=== PATIENT | female | born 1945 | race Caucasian/White ===

== ENCOUNTER 2022-04-07 09:36 | Day surgery (SDC) | payer MEDICARE, SELFPAY ==
[2022-04-07 09:56] VITALS: BMI 28.3
--- NOTE | 2022-04-07 12:29 | P.CONAN_ITS ---
HPI - Anesthesia Eval Consult details Narrative: 76 yo female patient for EGD PMFSH Active Problems Active Problems: Environmental allergies Past Medical History Medical History (Updated 04/07/22 @ 12:45 by Madai Zabala MD) Asthma Bronchitis CKD (chronic kidney disease) Coronary artery disease HTN (hypertension) Retinal detachment Rheumatic fever Tachycardia Urinary incontinence Family History Family history of problems with anesthesia: No Surgical History Surgical History H/O tubal ligation History of removal of skin mole History of Problems with Anesthesia: No Social History Social History Patient Tobacco Use Status: Never used Tobacco Use of substances other than those prescribed or required for medical reasons: No Are you DNR?: No Advance Directives: No Advance Directives Information Provided: Yes Meds Allergies Allergy/AdvReac Type Severity Reaction Status Date / Time Sulfa (Sulfonamide Allergy Severe Anaphylaxis Verified 04/06/22 12:39 Antibiotics) Latex, Natural Rubber Allergy Unknown Unknown Verified 04/06/22 12:39 neomycin Allergy Unknown Unknown Verified 04/06/22 12:39 colomycin Allergy Unknown Unknown Uncoded 04/06/22 12:39 Home Medications Medication Instructions Recorded Confirmed Last Taken Type Preparation H See Rx Instructions .Route .COMPLEX 04/07/22 04/07/22 Unknown History Super B Complex + C See Rx Instructions .Route .COMPLEX 04/07/22 04/07/22 Unknown History Vitamin C Drops 04/07/22 Unknown History Vitamin D3 See Rx Instructions .Route .COMPLEX 04/07/22 04/07/22 Unknown History amlodipine 2.5 mg tablet 1 tab PO DAILY 04/07/22 04/07/22 Unknown History amoxicillin 500 mg capsule 4 cap PO QPM 04/07/22 04/07/22 Unknown History betamethasone dipropionate 0.05 % See Rx Instructions .Route .COMPLEX 04/07/22 04/07/22 Unknown History topical cream calcium carbonate See Rx Instructions .Route .COMPLEX 04/07/22 04/07/22 Unknown History cetirizine See Rx Instructions .Route .COMPLEX 04/07/22 04/07/22 Unknown History ferrous sulfate 325 mg PO TIDWMEAL 04/07/22 04/07/22 Unknown History fexofenadine See Rx Instructions .Route .COMPLEX 04/07/22 04/07/22 Unknown Hi story loperamide See Rx Instructions .Route .COMPLEX 04/07/22 04/07/22 Unknown History nitroglycerin See Rx Instructions .Route .COMPLEX 04/07/22 04/07/22 Unknown History omeprazole 20 mg capsule,delayed 1 cap PO QAM 04/07/22 04/07/22 Unknown History release Exam Exam Date and Time: April 07, 2022 1229 Height,Weight and Vital Signs: Height 5 ft 4 in Weight 74.843 kg Vital Signs Temp Pulse Resp BP Pulse Ox O2 Del Method 04/07/22 12:51 98.6 F 59 18 157/69 H 99 Room Air Airway Mallampati Class: III (Small mouth) TM Dist: >3cm Neck ROM: Full Loose/Missing/Broken Teeth: Yes ( Missing 1 bottom right and bottom left. Denies broken or loose teeth) Heart: RRR Lungs: CTAB Assessment and Plan Assessment Anesthesia Assessment: Anesthesia Plan Discussed and Chart Reviewed Final Anesthetic Review Family History of Problems with Anesthesia: No History of Problems with Anesthesia: No NPO: Yes ASA Class: II Final Preanesthetic Review: No Changes in Pt Med Stat, Meds/Allgs Chart Reviewed, Consent Obtained/Reviewed and Anes Risks/Benef Reviewed Patient Risk: Low Procedure Risk: Low Assessment/Block/Sedation in SS: Assess/Block/Sedation-SS Anesthetic Plan Anesthetic Plan: MAC: Disposition: Standard PACU
[2022-04-07 12:51] VITALS: BP 157/69; PULSE 59; RESP 18; TEMP 37; O2SAT 99
[2022-04-07] MEDS: Lactated Ringers 1,000 ML 100 ML IVCONT (12:52)
--- NOTE | 2022-04-07 13:10 | MHC.SHP ---
Pre-Procedural Eval Section A Date of Service: 04/07/22 Section B Chief Complaint: reflux,chest pain Details of Present Illness: SEE H&P NO CHANGES Relevant Family History (Specify if Yes): No Relevant Social History: None Present Medications: see Short Stay [facility] assessment Medical History: No relevant PMH History of Previous Operations: No relevant previous surgery Allergies: Allergies Allergy/AdvReac Type Severity Reaction Status Date / Time Sulfa (Sulfonamide Allergy Severe Anaphylaxis Verified 04/06/22 12:39 Antibiotics) Latex, Natural Rubber Allergy Unknown Unknown Verified 04/06/22 12:39 neomycin Allergy Unknown Unknown Verified 04/06/22 12:39 colomycin Allergy Unknown Unknown Uncoded 04/06/22 12:39 Review of Systems Sugical H&P ROS: Negative: Constitution, Cardiovascular, Respiratory, Neurological, Psychiatric, Hem-Onc, Allergic/Immunologic, Gastrointestinal, Genitourinary, Musculoskeletal, Integumentary, Endocrine and Eyes/Ears/Nose/Throat Exam Surgical H&P Exam: Normal: HEENT, Normal: Heart, Normal: Lungs, Normal: Extremities, Normal: Abdomen, Normal: Skin and Normal: Neurological Plan Diagnosis/Plan: Unchanged I have reviewed the history and physical and performed a pertinent physical examination on my patient. No changes have occurred unless specified. Time Spent With Patient Time: Total time managing care of this patient today ____ minutes.
--- NOTE | 2022-04-07 13:28 | P.BOP_ITS ---
Brief Operative Note Date of Service: 04/07/22 Pre-op diagnosis: CHEST PAIN GERD Post-op diagnosis: same Procedure: EGD Surgeon: Bharat Simmons Anesthesia: MAC Was an Test Technician used for this Procedure?: No Estimated blood loss (mL): 5 Pathology: other Condition: stable Disposition: PACU
[2022-04-07 13:33] VITALS: BP 108/45; PULSE 66; RESP 16; TEMP 36.9; O2SAT 98
[2022-04-07 13:51] VITALS: BP 142/79; PULSE 80; RESP 18; TEMP 36.7; O2SAT 98
--- NOTE | 2022-04-08 00:06 | OP_ITS ---
SURGEON: Bharat Simmons MD INDICATIONS: Chest pain and gastroesophageal reflux disease. PREOPERATIVE DIAGNOSIS: POSTOPERATIVE DIAGNOSIS: PROCEDURE PERFORMED: Upper endoscopy with biopsy. ESTIMATED BLOOD LOSS: COMPLICATIONS: ANESTHESIA: Monitored anesthesia care. ASSISTANTS: SPECIMENS: PROCEDURE DESCRIPTION: The procedure was performed on 04/07/2022. A History and Physical was performed. The risks and benefits of the procedure were explained to the patient. Informed consent was obtained. The patient was placed in the left lateral decubitus position. The Olympus video gastroscope was introduced into the esophagus, stomach, and duodenum. Examination was performed and the scope was removed. She tolerated the procedure well and was transferred to recovery area in stable condition. FINDINGS: 1. Esophagus: The esophagus was normal. There was no esophagitis. Biopsies were obtained from the esophagogastric junction and at 30 cm. 2. Stomach: The stomach was normal. Biopsies were obtained from the antrum. 3. Duodenum: The bulb and second portion were normal. IMPRESSION: Normal upper endoscopy. RECOMMENDATIONS: Follow up the biopsy results. MD ARLETTE Nelson/ITALIAL / [id number]
== END 2022-04-07 14:41 | disposition home or self-care (01) ==
PROVIDERS: PCP Pediatrics Adolescent Medicine; Visit Provider Internal Medicine Gastroenterology
PROC: 0DJ08ZZ Inspection of Upper Intestinal Tract, Via Natural or Artificial Opening Endoscopic (ICD-10-PCS; CPT 43235; principal; 2022-04-07 10:30)
DX: K21.9 Gastro-esophageal reflux disease without esophagitis (principal); R07.9 Chest pain, unspecified; K44.9 Diaphragmatic hernia without obstruction or gangrene; I12.9 Hypertensive chronic kidney disease with stage 1 through stage 4 chronic kidney disease, or unspecified chronic kidney disease; N18.9 Chronic kidney disease, unspecified; J45.909 Unspecified asthma, uncomplicated; R00.0 Tachycardia, unspecified; Z79.899 Other long term (current) drug therapy; Z88.1 Allergy status to other antibiotic agents; Z88.2 Allergy status to sulfonamides; Z91.040 Latex allergy status; Z87.891 Personal history of nicotine dependence
CPT/HCPCS: 43239; 88305; 88342

== ENCOUNTER 2022-12-15 13:44 | Outpatient (REF) | payer MEDICARE, SELFPAY ==
[2022-12-15 14:51] LABS: MANUAL DIFF FLAG NO
[2022-12-15 15:38] LABS: Basophils Percent Auto 0.4 % (0-2); Eosinophils Absolute Auto 0.2 X10*3/uL (0.0-0.4); Eosinophils Percent Auto 3.3 % (0-4); Hematocrit 41.7 % (37.0-47.0); Hemoglobin 13.8 g/dl (12.0-16.0); Imm Gran Abs Auto 0.03 X10*3/uL (0.00-0.03); Imm Gran Pct Auto 0.4 % (0.0-0.4); Lymphocytes Absolute Auto 1.7 X10*3/uL (1.2-4.9); Lymphocytes Percent Auto 24.6 % (20-40); Mean Corpuscular HGB Conc 33.1 g/dl (31.0-35.0); Mean Corpuscular Hemoglobin 29.9 pg (27.0-33.0); Mean Corpuscular Volume 90.5 fL (80.0-98.0); Mean Platelet Volume 9.2 fL (9.4-12.3); Monocytes Absolute Auto 0.5 X10*3/uL (0.1-1.2); Monocytes Percent Auto 7.7 % (2-11); Neutrophils Absolute Auto 4.5 x10*3/uL (2.0-8.3); Neutrophils Percent Auto 63.6 % (45-73); Platelet Count 400 X10*3/uL (160-400); Red Blood Count 4.61 X10*6/uL (4.20-5.50); Red Cell Distribution Width 12.7 % (11.0-16.0)
[2022-12-15 16:07] LABS: D Dimer High Sensitivity 258 NG/ML
[2022-12-15 16:13] LABS: Erythrocyte Sedimentation Rate 20 MM/HR (0-20)
[2022-12-15 16:49] LABS: Anion Gap 12 (12-20); Blood Urea Nitrogen 16 mg/dL (9-16); Calcium 9.5 mg/dL (8.4-10.2); Carbon Dioxide 28 mmol/L (22-29); Chloride 105 mmol/L (96-108); Estimated Glomerular Filt Rate 47; Glucose Random 85 mg/dL (60-115); Sodium 141 mmol/L (135-145)
[2022-12-15 16:58] LABS: Troponin-I High Sensitivity < 2.7 ng/L (<3.5-17.0)
[2022-12-16 08:39] LABS: Lyme Abs Screen <0.90 index
[2022-12-18 13:42] LABS: Anti Nuclear Antibody Screen NEGATIVE (NEGATIVE)
== END 2022-12-15 13:45 | disposition home or self-care (01) ==
LOC: HO.LAB 13:44
PROVIDERS: PCP Pediatrics Adolescent Medicine; Visit Provider Hospitalist
DX: R07.9 Chest pain, unspecified (principal); R06.02 Shortness of breath; K21.9 Gastro-esophageal reflux disease without esophagitis; R78.89 Finding of other specified substances, not normally found in blood
CPT/HCPCS: 36415; 80048; 84484; 85025; 85379; 85652; 86038; 86617; 86618

== ENCOUNTER 2022-12-15 13:44 | Outpatient (AMB) | payer MEDICARE, SELFPAY ==
--- NOTE | 2022-12-15 13:50 | MHC.OFFVIS ---
Intake Vital Signs 12/15/22 13:52 Height 5 ft 4 in Weight 159 lb 13.362 oz BMI 27.4 BP 128/70 Blood Pressure Location Lt brachial Position Sitting Pulse 80 Pulse Source Pulse Oximeter Pulse Oximetry (%) 96 Oxygen Delivery Method Room Air Intake Visit Reasons: Shortness of breath Maintenance And Repair Worker Required: No Allergies Sulfa (Sulfonamide Antibiotics) Allergy (Severe, Verified 12/15/22 13:54) Anaphylaxis Latex, Natural Rubber Allergy (Unknown, Verified 12/15/22 13:54) Unknown neomycin Allergy (Unknown, Verified 12/15/22 13:54) Unknown colomycin Allergy (Unknown, Uncoded 12/15/22 13:54) Unknown HPI HPI Comments History of Present Illness Details The patient is here for a pulmonary evaluation. The patient is a 77 year woman who apparently was in usual state health until back in 2019 when she was out to dinner at a conference with her has been when all of a sudden she developed acute onset severe lower chest upper abdominal pain. Elizabeth like a wrapping around both size of her lower chest area. He was squeezing hard to breathe. She was eating at the time and she did try to eat and became nauseous. She had to vomit. The patient then laid down as she did not 1 a ruling the conference for . Therefore she rested on a sofa for some time and then see went home. The symptoms subsided. That was the worst that he had been. Now she has episodes off and on which had less severe. It may last between minutes to an hour maximum. As far as evaluation she did go to a GI doctor. She did not have a barium swallow but she did have an endoscopy. They told her that everything was okay and they could not explain her discomfort. That she did follow-up with cardiology and had a full cardiac workup although she is going to have another stress test done. Otherwise the patient has not found an etiology for the discomfort. She has not had any imaging studies. Denies any significant history of blood clots. The patient does have lower extremity edema. She has not had any imaging studies for this discomfort. therefore, will have her undergo blood work today including a D-dimer. The patient understands that if his D-dimer is elevated she will need a CTA to rule out blood clots. The patient has had history of renal insufficiency therefore we will check a renal function before providing her with contrast. on examination she does have any wheezing she does have a history of childhood asthma but has not required any inhaler she also had an adverse reaction to the inhalers so will hold off on any inhaler therapy at this time. [facility] Medical History (Updated 12/15/22 @ 22:01 by Mike Cortes MD) GERD (gastroesophageal reflux disease) Chest pain Rheumatic fever Coronary artery disease Retinal detachment Urinary incontinence Tachycardia HTN (hypertension) Bronchitis Asthma CKD (chronic kidney disease) Surgical History H/O tubal ligation History of removal of skin mole Social History Patient Tobacco Use Status: Never used Tobacco Review of Systems Const Denies fever(s) and Denies weight loss Eyes Denies change in vision ENT Reports nasal congestion Card Reports chest pain, Denies dyspnea and Denies dyspnea on exertion Resp Denies chest congestion, Denies cough, Denies hemoptysis, Denies dyspnea, Denies dyspnea on exertion and Denies wheezing GI Reports abdominal pain Musc Reports no additional complaints Skin/Breast Reports rash (face) Neuro Reports no additional complaints Yovani/Lymph Denies easy bleeding, Denies easy bruising and Denies lymphadenopathy Aller/Immun Denies wheezing Physical Exam Vital Signs: Last Vital Signs Pulse 80 12/15/22 13:52 BP 128/70 12/15/22 13:52 Pulse Ox 96 12/15/22 13:52 Oxygen Delivery Method Room Air 12/15/22 13:52 BMI result Body Mass Index 27.4 Const General: comfortable HEENT Head: Yes normocephalic Neck Neck: Yes supple Chest Chest palpation & inspection: normal inspection of the chest Resp Effort & Inspection: normal respiratory effort Auscultation: clear to auscultation bilaterally, no crackles, no rales and no rhonchi Cardio Rate: regular rate Rhythm: regular rhythm Heart sounds: S1 normal heart sound present and S2 normal heart sound present GI Palpation (GI): Soft to palpation and Tenderness to palpation present (GI) in the epigastrum Skin Rashes: rashes noted (minimal on her face) Extrem General: Yes no clubbing, cyanosis or edema Assessment & Plan Assessment & Plan (1) Chest pain: Code(s): R07.9 - Chest pain, unspecified Qualifiers: Chest pain type: unspecified Qualified Code(s): R07.9 - Chest pain, unspecified (2) GERD (gastroesophageal reflux disease): Code(s): K21.9 - Gastro-esophageal reflux disease without esophagitis (3) Blood D-dimer assay positive: Code(s): R78.89 - Finding of other specified substances, not normally found in blood Plan The etiology of the intermittent chest pain is not clear at this time. Appears to be affecting the patient bilaterally. Musculoskeletal etiologies are in differential. Although pulmonary vascular conditions should also be considered. Her D-dimer was indeed elevated. Therefore the patient needs to be ruled out for any pulmonary embolism. In the meantime the CT will also provide as with evaluation of parenchyma and other structures in the thorax. The patient does have a history of renal insufficiency with renal function is normal and she should be able to tolerate a CT scan. Recommendations: Blood work and getting including the D-dimer which was positive requesting CTA to rule out thromboembolic disease also to assess her lung parenchyma and underlying structures reflux diet the patient should sleep elevated consider antispasmodic medications such as baclofen to help her with potential diaphragmatic spasms follow-up in 4-6 weeks Orders: Orders Basic Metabolic Panel Today R07.9 - Chest pain, unspecified D Dimer High Sensitivity Today R07.9 - Chest pain, unspecified ZACK Reflex Titer and Pattern Today R07.9 - Chest pain, unspecified Lyme IgG/IgM w/reflex to WB Today R07.9 - Chest pain, unspecified Complete Blood Count Auto Diff Today R07.9 - Chest pain, unspecified Erythrocyte Sedimentation Rate Today R07.9 - Chest pain, unspecified Troponin-I High Sensitivity Today R07.9 - Chest pain, unspecified Coding Level of Care Code New Pt Level 4 (77475) Diagnoses Chest pain, unspecified type R07.9 Chest pain type: unspecified GERD (gastroesophageal reflux disease) K21.9 Blood D-dimer assay positive R78.89 Time Spent (min) 40
[2022-12-15 13:52] VITALS: BP 128/70; PULSE 80; O2SAT 96; BMI 27.4
== END 2022-12-15 14:31 | disposition home or self-care (01) ==
PROVIDERS: PCP Internal Medicine; Visit Provider Hospitalist
DX: R07.9 Chest pain, unspecified (principal); K21.9 Gastro-esophageal reflux disease without esophagitis; R78.89 Finding of other specified substances, not normally found in blood
CPT/HCPCS: 99204

== ENCOUNTER 2022-12-16 13:50 | Outpatient (REF) | payer MEDICARE, SELFPAY ==
--- NOTE | ~2022-12-16 | CT_ITS ---
EXAMINATION: CT ANGIOGRAM OF THE CHEST WITH AND WITHOUT CONTRAST (CT PULMONARY ANGIOGRAM FOR PE) CLINICAL INFORMATION: Reason for Exam R07.9 - Chest pain, unspecified COMPARISON: None available. TECHNIQUE: Prior to contrast administration, noncontrast localization images were obtained. Subsequently, multidetector volumetric imaging was performed from the thoracic inlet to below the diaphragms following the administration of 80 mL Omnipaque 350 intravenous contrast. No contrast reaction reported Sagittal, coronal, and MIP oblique sagittal reformatted images were obtained on the CT workstation, uploaded to PACS, and reviewed. This CT examination was performed using dose optimization techniques as appropriate, variously including the following: *Automated exposure control *Adjustment of mA and/or kV according to patient size (this includes techniques or standardized protocols for targeted exams where dose is matched to indication/reason for exam; i.e. extremities or head) *Use of iterative reconstruction technique Total exam dose-length product 101 mGy-cm FINDINGS: QUALITY OF STUDY/CONTRAST BOLUS: Satisfactory. PULMONARY ARTERIES: There is opacity of pulmonary artery and its branches without filling defect or narrowing. THORACIC AORTA: No aneurysm. LUNG: The lungs are well-expanded with minimal atelectatic changes left lung base. No consolidation, mass or pulmonary nodules seen. PLEURA: No pleural effusion or pneumothorax. MEDIASTINUM: The thyroid gland is enlarged with the right greater than left and focal left lobe calcification.. There is mild compromise of the trachea in the neck. Heart size and the great vessels appear normal caliber. No pericardial effusion. No coronary artery calcifications visualized. No abnormal size mediastinal or hilar lymphadenopathy. No evidence of septal bowing or right heart strain. CORONARY ARTERY CALCIFICATION: None visualized on this study. CHEST WALL/AXILLA: No axillary or internal mammary lymphadenopathy. OSSEOUS STRUCTURES: No acute or suspicious osseous abnormality. There is mild ventral spondylosis. UPPER ABDOMEN: Visualized liver, spleen, pancreas and adrenal glands unremarkable. 6 slight hyperdensity in the dependent segment of gallbladder on the last image. Question gallstone versus hyperdense sludge. No reflux of contrast into the hepatic veins to suggest elevated right heart pressures. CT/CT angio chest PE protocol IMPRESSION: No evidence of PE. No evidence of aortic aneurysm. Minimal atelectatic changes left lung base. VTE: negative
[2022-12-16] MEDS: iohexoL 350 MG/ML 100 ML INFUS..BTL IV (14:12)
== END 2022-12-16 13:51 | disposition home or self-care (01) ==
LOC: HO.CT 13:50
PROVIDERS: PCP Internal Medicine; Visit Provider Hospitalist
DX: R07.9 Chest pain, unspecified (principal); R78.89 Finding of other specified substances, not normally found in blood
CPT/HCPCS: 71275; Q9967

== ENCOUNTER 2023-01-22 17:17 | Emergency (ER) | payer MEDICARE, SELFPAY ==
--- NOTE | 2023-01-22 17:30 | ED.GENADULT ---
HPI - General Adult General Chief complaint: General Medical Stated complaint: +Covid/Weakness Time Seen by Provider: 01/22/23 17:36 Source: patient, RN notes reviewed and old records reviewed Mode of arrival: ambulatory Limitations: no limitations History of Present Illness HPI narrative: 77-year-old female presents for evaluation of body aches, weakness. Patient reports that she started with shortness of breath and body aches 4 days ago on Wednesday. She is no longer having any shortness of breath over the last 2 days but complains of weakness, sore throat, body aches She also had some diarrhea She called her primary doctor who 1 her to come to the emergency department for further evaluation The patient reports that she tested positive for COVID-19 yesterday She denies any fevers She is able to take p.o. No other complaints or concerns at this time Related Data Home Medications Medication Instructions Recorded Confirmed Preparation H See Rx Instructions .Route .COMPLEX 04/07/22 04/07/22 Super B Complex + C See Rx Instructions .Route .COMPLEX 04/07/22 04/07/22 Vitamin C Drops 04/07/22 Vitamin D3 See Rx Instructions .Route .COMPLEX 04/07/22 04/07/22 amlodipine 2.5 mg tablet 1 tab PO DAILY 04/07/22 04/07/22 amoxicillin 500 mg capsule 4 cap PO QPM 04/07/22 04/07/22 betamethasone dipropionate 0.05 % See Rx Instructions .Route .COMPLEX 04/07/22 04/07/22 topical cream calcium carbonate See Rx Instructions .Route .COMPLEX 04/07/22 04/07/22 cetirizine See Rx Instructions .Route .COMPLEX 04/07/22 04/07/22 ferrous sulfate 325 mg PO TIDWMEAL 04/07/22 04/07/22 fexofenadine See Rx Instructions .Route .COMPLEX 04/07/22 04/07/22 loperamide See Rx Instructions .Route .COMPLEX 04/07/22 04/07/22 nitroglycerin See Rx Instructions .Route .COMPLEX 04/07/22 04/07/22 omeprazole 20 mg capsule,delayed 1 cap PO QAM 04/07/22 04/07/22 release ascorbate calcium (vitamin C) 500 500 mg PO DAILY 12/15/22 mg tablet Allergies Allergy/AdvReac Type Severity Reaction Status Date / Time Sulfa (Sulfonamide Allergy Severe Anaphylaxis Verified 12/15/22 13:54 Antibiotics) Latex, Natural Rubber Allergy Unknown Unknown Verified 12/15/22 13:54 neomycin Allergy Unknown Unknown Verified 12/15/22 13:54 colomycin Allergy Unknown Unknown Uncoded 12/15/22 13:54 Review of Systems Constitutional: Constitutional: Denies chills, Denies fever(s), Reports headache(s), Reports lethargy, Reports malaise and Reports weakness ENT: Reports headache(s) and Reports sore throat Cardiovascular: Cardiovascular: Denies chest pain and Denies dyspnea Respiratory: Respiratory: Denies dyspnea Gastrointestinal: Gastrointestinal: Denies abdominal pain, Reports diarrhea, Reports nausea and Denies vomiting Musculoskeletal: Musculoskeletal: Denies back pain Integumentary/Breasts: Skin/Breast: Denies rash Neurologic: Reports headache(s) and Reports weakness PMFSH Past Medical History Medical History (Updated 01/22/23 @ 17:36 by Edgar Schwab) GERD (gastroesophageal reflux disease) Chest pain Rheumatic fever Coronary artery disease Retinal detachment Urinary incontinence Tachycardia HTN (hypertension) Bronchitis Asthma CKD (chronic kidney disease) Surgical History H/O tubal ligation History of removal of skin mole Social History Social History Patient Tobacco Use Status: Never used Tobacco Physical Exam ED Vital Signs: Vital Signs - 24 hr 01/22/23 17:32 Temperature 99.1 F Pulse Rate 78 Respiratory Rate 18 Blood Pressure 141/75 H Pulse Oximetry 97 Oxygen Delivery Method Room Air BMI result Body Mass Index 27.3 Const General: healthy appearing, comfortable, no acute distress, alert and awake Nutritional Appearance: well nourished Orientation/consciousness: patient oriented x3 HENMT Head: Yes normocephalic and Yes atraumatic Throat: Yes posterior oropharynx normal Eyes Eyelids: Yes eyelids normal Conjunctivae: conjunctivae normal Sclerae: sclerae normal Corneas: corneas normal Pupils: Equal, round and reactive pupils present EOM: EOMs intact bilaterally Neck Neck: Yes full ROM Resp Effort & Inspection: normal respiratory effort, able to speak in complete sentences, no audible wheezes and not labored Auscultation: clear to auscultation bilaterally GI Inspection: No distended Palpation (GI): Soft to palpation, not firm, nontender, no guarding and not rigid Skin General skin exam: no rashes or lesions noted and elasticity normal Neuro General: patient oriented x3 Cranial nerves: Yes Equal, round and reactive pupils present and Yes Bilaterally intact EOM present Cognition (Neuro): normal cognition Extrem Other: Moving all extremities well without any obvious deformities Course Course Course Narrative: RME- 77 year old female presents for evaluation of body aches Medical Decision Making Medical Decision Making MDM Narrative: 77-year-old female presents for evaluation of weakness, body aches. She reports testing positive for COVID-19 since yesterday. Her vital signs are within normal limits. She is well-appearing with a reassuring physical exam. Given that she is known to be COVID positive, this explains her symptoms. I do not see indication for further emergent workup. The patient is on day 5 after symptom onset, she does not qualify for packed COVID treatment at this time. Differential Diagnosis Differential Diagnoses: The differential diagnosis associated with the presentation includes COVID-19 Viral syndrome Dehydration Weakness Tests considered The following testing was considered but not selected: . Labs chest x-ray, viral swab the patient is known to have COVID-19 and her vital signs are stable, she is well-appearing. Discharge Plan Discharge Clinical Impression: COVID-19 Patient Disposition: Home, Self-Care Instructions: COVID-19 (Coronavirus Disease 2019) (ED) Additional Instructions: Use ibuprofen/Tylenol as needed for fevers, headache, body aches. Drink lots of fluids. Take all of your medications as prescribed Return for new or worsening symptoms especially if you are having trouble breathing You should begin to notice improvement over the next few days Prescriptions: No Action amoxicillin 500 mg capsule 4 cap PO QPM Rx Instructions: takes prior to dental procedures amlodipine 2.5 mg tablet 1 tab PO DAILY betamethasone dipropionate 0.05 % cream See Rx Instructions .ROUTE .COMPLEX Rx Instructions: topical daily omeprazole 20 mg capsule,delayed release(DR/EC) 1 cap PO QAM Preparation H See Rx Instructions .ROUTE .COMPLEX Rx Instructions: topically as needed Super B Complex + C See Rx Instructions .ROUTE .COMPLEX Rx Instructions: 60mg c, 25 mg B-1, 20 mg B-2, 5 mg b-6, 100 mcg b-12, 25 mg niacinamide, 400 mcg folic acid, 1000 mcg d-biotin, 5.5 mg d-ca Vitamin C Drops Vitamin D3 See Rx Instructions .ROUTE .COMPLEX Rx Instructions: 1000 iu 1-2 tablets calcium carbonate See Rx Instructions .ROUTE .COMPLEX Rx Instructions: 500 mg 2-6 tablets daily cetirizine See Rx Instructions .ROUTE .COMPLEX Rx Instructions: 10 mg prn 1 daily ferrous sulfate 325 mg PO TIDWMEAL fexofenadine See Rx Instructions .ROUTE .COMPLEX Rx Instructions: 180mg 1 daily if needed loperamide See Rx Instructions .ROUTE .COMPLEX Rx Instructions: 2 mg 1-2 caplets as needed nitroglycerin See Rx Instructions .ROUTE .COMPLEX Rx Instructions: as directed if needed ascorbate calcium (vitamin C) 500 mg tablet 500 mg PO DAILY
[2023-01-22 17:32] VITALS: BP 141/75; PULSE 78; RESP 18; TEMP 37.3; O2SAT 97; BMI 27.3
== END 2023-01-22 17:45 | disposition home or self-care (01) ==
PROVIDERS: Emergency Provider Emergency Medicine; PCP Internal Medicine
DX: U07.1 COVID-19 (principal); R53.1 Weakness
CPT/HCPCS: 99282

== ENCOUNTER 2023-06-03 10:21 | Outpatient (REF) | payer MEDICARE, SELFPAY ==
--- NOTE | ~2023-06-03 | FL_ITS ---
EXAMINATION: XR FLUOROSCOPY UPPER GI WITH AIR CLINICAL INFORMATION: Reflux. Dysphagia. COMPARISON: None TECHNIQUE: Fluoroscopic air contrast upper GI examination was performed utilizing standard techniques with thin and thick barium and effervescent granules. Numerous spot images were obtained. FINDINGS: Lateral cine images of the oropharynx and hypopharynx demonstrate normal swallow mechanism with normal epiglottic inversion and soft palate elevation. There is mild laryngeal penetration with thick barium, which appears secondary to premature contrast spillover the epiglottis before full closure. No glottic or subglottic aspiration identified. No nasopharyngeal reflux present. Hypopharyngeal structures appear normal without evidence of mass or diverticulum. There is mild cricopharyngeal achalasia present. Dual and single contrast images of the esophagus demonstrate normal caliber, contour, and mucosal pattern. No evidence of stricture, mass, or ulcerations identified. Esophageal peristalsis is mild to moderately disorganized. No evidence of hiatus hernia identified. No significant gastroesophageal reflux was seen during the course of the examination and on reflux views. Dual contrast and single contrast images of the stomach demonstrated normal contour. There are multiple tiny areas of contrast pooling in the fundus of the stomach that may represent small superficial ulcers. There is mild prominence of the areae gastricae present as well, particularly in the fundus and proximal body. Findings suggestive of gastritis. No masses or other abnormalities are seen. No rugal fold thickening seen. Contrast freely passed into the gastric antrum and duodenal bulb without delay. Single and air-contrast images of the duodenal bulb demonstrate no abnormality. The duodenal sweep has a normal appearance, course, and mucosal fold appearance. No malrotation. The imaged proximal jejunum has a normal fold pattern and caliber. FLUOROSCOPY TIME: 5 minutes Number of Spot Images: 15 Number of Cine: 10 DOSE AREA PRODUCT: 2053 uGy-m2 (microgray-meter squared) FL/FL barium swallow with air IMPRESSION: 1. Mild laryngeal penetration with thick barium to the level of the false cords. No subglottic aspiration. 2. Mild cricopharyngeal achalasia. 3. Mild to moderate disorganized esophageal peristalsis. 4. Multiple tiny areas of contrast pooling in the fundus of stomach that may represent small superficial apthous type ulcers. Findings suggest mild gastritis. Recommend correlation with EGD. 5. No definite hiatus hernia or reflux identified. This procedure was performed by Edgar Rao PA-C, and supervised by Dr. Vazquez.
== END 2023-06-03 10:22 | disposition home or self-care (01) ==
LOC: HO.XRAY 10:21
PROVIDERS: PCP Internal Medicine; Visit Provider Hospitalist
DX: K21.9 Gastro-esophageal reflux disease without esophagitis (principal)
CPT/HCPCS: 74221

== ENCOUNTER → 2023-06-03 10:24 | Outpatient (BNV) | payer MEDICARE, SELFPAY | PROVIDERS: PCP Internal Medicine; Visit Provider Physician Assistant Surgical | DX: K21.9 Gastro-esophageal reflux disease without esophagitis (principal); R13.10 Dysphagia, unspecified | CPT/HCPCS: 74221 ==

== ENCOUNTER 2024-12-27 10:28 | Outpatient (AMB) | payer MEDICARE, SELFPAY ==
--- OUTSIDE RECORDS SUMMARY | 2023-09-17 08:20 | XMS_ITS ---
Author Organization [facility] Address [address] [place] [address] Care Team Providers Care Rough Rounder Machine Name Role Phone Jailene Sebastian Primary Care Provider Bharat Wharton Jr REASON FOR VISIT abnormal UGI series Encounters Encounter Location Date Provider Diagnosis [facility] [address] [place] [id number] 09/17/2023 Bharat Simmons Jr Plan Of Treatment Next Appt Details Provider Name:Bharat brooks Jr, 02/13/2025 09:20:00 AM, [address] [place] [address], [id number], Progress Notes * MEHDI MOREL CDOB: 8 (79 yo F)Acc No.[id number]:09/17/2023 EGD/MAC Patient: MEHDI HAMPTON Provider: Stephanie Simmons MD :1945 A ge:77 Y S ex:Female Date:09/17/2023 Address:[address] , [facility] Pcp:Jailene Sebastian Subjective: * Chief Complaints: * [...] for Leticia de la cruz/Ajay/Cam on: 1 12:03 PM EDT
--- OUTSIDE RECORDS SUMMARY | 2024-12-05 07:10 | XMS_ITS ---
Author Organization [facility] Address [address] [place] [address] Care Team Providers Care Passenger Tire Builder Name Role Phone Jailene Sebastian Primary Care Provider Bharat Wharton Jr [phone] REASON FOR VISIT screening Encounters Encounter Location Date Provider Diagnosis [facility] [place] [address] [place] [id number] 12/05/2024 Bharat Simmons Jr Plan Of Treatment Next Appt Details Provider Name:Bharat brooks Jr, 02/13/2025 09:20:00 AM, [address] [place] [address], [id number], Progress Notes * MEHDI MOREL CDOB: 8 (79 yo F)Acc No.[id number]:12/05/2024 COLON WITH MAC Patient: MEHDI HAMPTON Provider: Stephanie Simmons MD :1945 A ge:79 Y S ex:Female Date:12/05/2024 Address:[address] , [facility] Pcp:Jailene Sebastian Subjective: * Chief Complaints: * 1 . Screening. * Medical History: Objective: * Vitals: Assessment: Plan: * Treatment: * * The named appointment provid er may or may not be the originator of this progress note, and it is not deemed complete until electronically signed by the appointment provider. Sign off status: Pending * Provider: Stephanie Simmons MD Date: 0 12/05/2024 Generated for Leticia de la cruz/Ajay/Graysonitting on: 1 12:03 PM EDT
--- NOTE | 2024-12-27 10:29 | MHC.OFFVIS ---
Vital Signs 12/27/24 10:35 Height 5 ft 4 in Weight 168 lb 6 oz BMI 28.9 BP 130/82 Blood Pressure Location Lt brachial Position Sitting Pulse 90 Pulse Source Pulse Oximeter Pulse Oximetry (%) 96 Oxygen Delivery Method Room Air Intake Visit Reasons: ENP - Family Hx of Parkinsons, Twitching Intake Note: Twitching, FHx Parkinson's Pick Pulling Machine Operator Required: No Accompanied by: Self / Same As Patient Allergies Sulfa (Sulfonamide Antibiotics) Allergy (Severe, Verified 12/27/24 10:29) Anaphylaxis famotidine Allergy (Unknown, Verified 12/27/24 10:29) Headache Lanolin (Wool alcohols) Allergy (Unknown, Verified 12/27/24 10:29) Unknown Latex, Natural Rubber Allergy (Unknown, Verified 12/27/24 10:) Unknown mold Allergy (Unknown, Verified 12/27/24 10:29) Runny Nose neomycin Allergy (Unknown, Verified 12/27/24 10:29) Unknown colomycin Allergy (Unknown, Uncoded 12/15/22 13:54) Unknown Medication List - Last Reconciled 12/27/24 by Vanessa Peace MD amlodipine 1 tab PO DAILY ascorbate calcium (vitamin C) 500 mg PO DAILY betamethasone dipropionate 0.05% topical daily bevacizumab (Avastin) 1.25 mg intravitreal Q4W [calcium carbonate 500 mg 2-6 tablets daily] [cetirizine 10 mg prn 1 daily] cholecalciferol (vitamin D3) 125 mcg PO DAILY estradiol 0.01%(0.1mg/gram) 1 g vaginal [ferrous sulfate 325 mg PO TIDWMEAL] [fexofenadine 180mg 1 daily if needed] gabapentin 1-3 caps orally bedtime; [loperamide 2 mg 1-2 caplets as needed] zgzmqgvh-vsx-fuu C-herb no.124 250-8.875 mg (Airborne (ascorbic acid)) tabs PO [nitroglycerin as directed if needed] omeprazole 1 cap PO QAM [Preparation H topically as needed] [Super B Complex + C 60mg c, 25 mg B-1, 20 mg B-2, 5 mg b-6, 100 mcg b-12, 25 mg niacinamide, 400 mcg folic acid, 1000 mcg d-biotin, 5.5 mg d-ca] vit C,E,Zn,Tt-oyvyd3-pdi-zeax 250-2.5-0.5 mg caps PO [Vitamin C Drops ] HPI Comments Details: 79y/o Right handed female comes for evaluation of possible Parkinsons and cognitive disorder. Her mother and 2 maternal uncles had Parkinsons in their 70s. she is also concerned about her memory an dintermittent right hand tremors. she noticed tremors intermittently in her right hand especially when she is holding something .It is more frequent now and more when she is tired. No trouble with using utensils, ok with dressing, showering. Handwriting has changed- more messy but not smaller. Speech- same No drooling Gait- left leg pain is affecting Falls- none , feels dizzy sometimes sleep-vivid dreams, excessive daytime sleepiness. Mood- No depression or anxiety Memory- has trouble with short term recall, feels she is not as sharp . she was video rental clerk - retired 2 years ago when she realized that she was slower and could not keep track of things at work [facility] Medical History (Updated 12/27/24 @ 11:14 by Vanessa Peace MD) Leg pain, left Cognitive change Esophageal dysfunction Chronic arthritis Allergic rhinitis Achilles tendinitis GERD (gastroesophageal reflux disease) Chest pain Rheumatic fever Coronary artery disease Retinal detachment Urinary incontinence Tachycardia HTN (hypertension) Bronchitis Asthma CKD (chronic kidney disease) Surgical History S/P laparoscopic hysterectomy History of esophagogastroduodenoscopy (EGD) Cataract extraction status of right eye H/O tubal ligation History of removal of skin mole Family History Mother Parkinsonism Diabetes Coronary artery disease Alcohol abuse Arthritis Depression Heart disease HTN (hypertension) Father Coronary artery disease Heart disease Paternal Aunt Retinal detachment Breast cancer Maternal Uncle Parkinsonism Social History Patient Tobacco Use Status: Never used Tobacco Physical Exam Vital Signs: Last Vital Signs Pulse 90 12/27/24 10:35 BP 130/82 12/27/24 10:35 Pulse Ox 96 12/27/24 10:35 Oxygen Delivery Method Room Air 12/27/24 10:35 BMI result Body Mass Index 28.9 Const General: cooperative, healthy appearing, comfortable and no acute distress Nutritional Appearance: average body habitus Orientation/consciousness: patient oriented x3 Eyes Pupils: Equal, round and reactive pupils present Neuro Other: limited due to pain No tremors Good speech Normal facial expression and blink General: patient oriented x3, tone normal, moves all extremities and no focal motor deficits Cranial nerves: Yes Facial sensation intact/muscles of mastication intact, Yes Equal, round and reactive pupils present, Yes Bilaterally intact EOM present, Yes Nystagmus not present, Yes Normal facial strength present, Yes Midline tongue present, Yes Symmetric palate elevation present and Yes Ability to bilaterally elevate shoulders present Cognition (Neuro): normal cognition Gait exam (Neuro): Antalgic gait present Motor exam (neuro): 5/5 motor strength present throughout and Normal motor muscle tone present throughout Deep tendon reflexes (DTR's): Right triceps reflex intensity grade: 1+, Left triceps reflex intensity grade: 1+, Rt Biceps (C5, C6): 1+, Left biceps reflex intensity grade: 1+, Right brachioradialis reflex intensity grade: 1+, Left brachioradialis reflex intensity grade: 1+, Right patellar reflex intensity grade: 1+ and Left patellar reflex intensity grade: 1+ Coordination: [id number]-nb-oenl test normal Assessment & Plan Assessment & Plan (1) Cognitive change: Comment: did well on MOCA Code(s): R41.89 - Other symptoms and signs involving cognitive functions and awareness Category: Medical (2) Leg pain, left: Code(s): M79.605 - Pain in left leg Category: Medical Plan No evidence of parkinsons on todays exam MRI brain to r/o structural causes TSH Vit B 12 TSH ESR CBC CMP MMA I will trial her on gabapentin 100- 1-3 tabs qhs continue cognitive exercises. Orders: Orders MR head/brain wo con Today R41.89 - Other symptoms and signs involving cognitive functions and awareness Vitamin B12 and Folate Today R41.89 - Other symptoms and signs involving cognitive functions and awareness Methylmalonic Acid Today R41.89 - Other symptoms and signs involving cognitive functions and awareness Complete Blood Count Auto Diff Today R41.89 - Other symptoms and signs involving cognitive functions and awareness Comprehensive Met. Panel Today R41.89 - Other symptoms and signs involving cognitive functions and awareness Erythrocyte Sedimentation Rate Today R41.89 - Other symptoms and signs involving cognitive functions and awareness TSH reflex Free T4 Today R41.89 - Other symptoms and signs involving cognitive functions and awareness Medications: New gabapentin 1-3 caps orally bedtime; 90 caps 0RF Coding Level of Care Code New Pt Level 4 (17555) Complex EM visit Add On G2211 Diagnoses Cognitive change R41.89 Leg pain, left M79.605 MOCA Assessment Visuospatial/Executive Was patient able to complete Number to Letter matching?: Yes Was the patient able to copy the cube?: Yes Clock: Contour: Yes Clock: Numbers: Yes Clock: Hands: Yes Naming Was the patient able name the Lion?: Yes Was the patient able to name the Rhinoceros?: Yes Was the patient able to name the Camel?: Yes Memory 1st Trial - Select the words the patient was able to remember: Face, Velvet, Yazdanism, Ayse and Red 2nd Trial - Select the words the patient was able to remember: Face, Velvet, Yazdanism, Ayse and Red Attention Was the patient able to repeat [2 1 8 5 4] in forward order?: Yes Was the patient able to repeat [7 4 2] in backward order?: Yes Was the patient able to identify the A's with <2 errors?: Yes Serial 7 subtraction starting at 100 result: 4 or 5 correct (3 points) Language Select the phrases the patient was able to repeat: I only know that Jossue is the one to help today and The cat always hid under the couch when dogs were in the room Was the patient able to name more than 11 words that start with the letter F?: Yes Abstraction Select all that the patient was able to find the similarity: Train - Bicycle Delayed Recall No Cues - Select the words the patient was able to remember: Velvet and Red Category Cue - Select the words the patient was able to remeber: Ayse Multi Choice Cue - Select the words the patient was able to remember: Yazdanism Orientation Select the following items that the patient knew: Date, Month, Year, Day, Place and City Score MOCA Score (>26 out of 30 is Normal): 26
[2024-12-27 10:35] VITALS: BP 130/82; PULSE 90; O2SAT 96; BMI 28.9
--- OUTSIDE RECORDS SUMMARY | 2024-12-27 12:03 | XMS_ITS | Encounter Summary ---
Author Organization [employer] Address [address] [place] [address] Care Team Providers Care Risk Lead Name Role Phone Nga Charles CNP Primary Care Provider [phone] Encounter Details Date Type Department Care Team (Late st Contact Info) Description 06/07/2023 Orders Only [facility] MEDICAL [address] [place], [place] [id number] Mike Cortes [address] [place] [address] Social History Tobacco Use Types Packs/Day Years Used Date Smoking Tobacco: Former Cigarettes Q uit: 02/27/1992 Smokeless Tobacco: Never Alcohol Use Standard Drinks/Week Comments Yes 0 (1 standard drink = 0.6 oz pur e alcohol) 1 PHQ-2 Answer Date Recorded Patient Health Questionnaire-2 Score 0 04/09/2022 Alcohol Answer Date Recorded Q1: How often do you have a drink containing alc ohol? 3 04/09/2022 Q2: How many drinks containi ng alcohol do you have on a typical day when you are drinking? 1 04/09/2022 Q3: How often do you have six or more drinks on one occasion? 1 04/09/2022 Housing Stability Answer Date Recorded What is your housing situation today? I have rl march 01/21/[address] you li ve. Do you have problems with any of the following? None of the above 01/21/2023 Food Insecurity Answer Date Recorded Within the past 12 months, y ou worried that your food would run out before you got money to buy more: Never True 01/21/2023 Within the past 12 months,th e food you bought just didn't last and you didn't have enough money to get more: Never True Transportation Answer Date Recorded In the past 12 months, has l ack of transportation kept you from medical appts, meetings, work or from getting things needed for daily living? No 01/21/2023 Utilities Answer Date Recorded In the past 12 months, has t he electric, gas, oil or water company threatened to shut off services in your home? No 01/21/2023 Depression Answer Date Recorded Patient Health Questionnaire-2 Score 0 04/09/2022 Education Answer Date Recorded What is the highest level of school you have completed or the highest degree you have received? 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 MEDICAL [address] [place] [address] Libby Malik MD [address] [place] [address] 02/06/2025 3:00 PM EST Office Visit [facility] MEDICAL [address] [place] [address] Nga Charles CNP [address] [place] [address] 02/28/2025 2:00 PM EST Office Visit [facility] DENTAL [address] [place] [address] Karen Lee documented as of this encounter Procedures Procedure Name Priority Date/Time Associated Diagnosis Comments FL ESOPHAGUS BARIUM SWALLOW WITH AIR Routine 06/03/2023 6:04 PM EST documented in this encounter Results * FL Esophagus Barium Swallow w/Air (06/03/2023 6:04 PM EST) Anatomical Region Laterality Modality Head, Neck Radiographic Divya ging Mike Cortes IMG FLUOROSCOPY PROCEDURES Marycarmen l Result documented in this encounter Visit Diagnoses Not on filedocumented in this encounter Care Teams Risk Lead Relationship Specialty Start Date End Date Nga Charles CNP [address] [place] [address] PCP - General Family Medicine 04/10/22 documented as of this encounter
--- OUTSIDE RECORDS SUMMARY | 2024-12-27 12:03 | XMS_ITS | Encounter Summary ---
Author Organization [facility] Address [address] [place] [address] Phone Care Team Providers Care Corporate General Manager Name Role Phone Nga Charles CNP Primary Care Provider [phone] Jailene Sebastian MD Unavailable [phone] Encounter Details Date Type Department Care Team (Latest Contact Info) Description 02/26/2022 Transcribe Orders Virtual Department [address] [place] [address] Nga Charles CNP [address] [place] [address] [email or web address] Prolapse of vaginal wall (Primary Dx) Social History Tobacco Use Types Packs/Day Years Used Date Smoking Tobacco: Former Cigarettes 0.5 30 Smokeless Tobacco: Never Alcohol Use Standard Drinks/Week Comments Yes 1 (1 standard drink = 0.6 oz pure alcohol) 1 glass of wine or std drink once weekly or every other week Comments No Sex and Gender Information Value Date Recorded Sex Assigned at Female 04/09/2021 2:33 PM EST Legal Sex Female 10:05 PM EDT Gender Identity Female 04/09/2021 2:33 PM EST Sexual Orientation Straight 04/09/2021 2: 33 PM EST documented as of this encounter Plan of Treatment Not on file documented as of this encounter Results * US PELVIS TRANSABDOMINAL PLUS TRANSVAGINAL (03/06/2022 2:08 PM EST) Anatomical Region Laterality Modality Pelvis, Uterus/Adnexa Ultrasound 03/06/2022 4:57 PM EST Impressions 03/06/2022 4:59 PM EST 1. Normal sonographic appearance of the uterus. 2. Nonvisualization of the bilateral ovaries secondary to overlying bowel gas. Narrative 03/06/2022 4:59 PM EST US PELVIS TRANSABDOMINAL PLUS TRANSVAGINAL TECHNIQUE: Pelvic Ultrasound Transabdominal performed for global imaging of the pelvis. Pelvic Ultrasound Transvaginal performed for detailed imaging of the endometrium and/or adnexa. COMPARISON: There is no prior study available for comparison FINDINGS: Uterus: Size: 6.0 x 1.8 x 3.4 cm. Orientation: anteverted Myometrium: Normal. Endometrium: Normal. Thickness: 2 mm. Right adnexa: The ovary is unable to be demonstrated sonographically secondary to overlying bowel gas. Left adnexa: The ovary is unable to be demonstrated sonographically secondary to overlying bowel gas. Free fluid: No significant free fluid. Procedure Note Julia Decker MD - 03/06/2022 US PELVIS TRANSABDOMINAL PLUS TRANSVAGINAL TECHNIQUE: Pelvic Ultrasound Transabdominal performed for global imagingof the pelvis. Pelvic Ultrasound Transvaginal performed for detailedimaging of the endometrium and/or adnexa. COMPARISON: There is no prior study available for comparison FINDINGS: Uterus: Size: 6.0 x 1.8 x 3.4 cm. Orientation: anteverted Myometrium: Normal. Endometrium: Normal. Thickness: 2 mm. Right adnexa: The ovary is unable to be demonstrated sonographically secondary tooverlying bowel gas. Left adnexa: The ovary is unable to be demonstrated sonographically secondary tooverlying bowel gas. Free fluid: No significant free fluid. IMPRESSION: 1. Normal sonographic appearance of the uterus. 2. Nonvisualization of the bilateral ovaries secondary to overlying bowelgas. us Nga Charles FURNITURE ASSEMBLY SUPERVISOR IMG US PELVIS Final Res ult documented in this encounter Visit Diagnoses Diagnosis Prolapse of vaginal wall- Primary Unspecified prolapse of vaginal herman Prolapse of vaginal wall Unspecified prolapse of vaginal herman documented in this encounter Care Teams Corporate General Manager Relationship Specialty Start Date End Date Nga Charles CNP [address] [place] [address] [email or web address] PCP - General Family Medicine 08/05/18 Jailene Sebastian MD [address] [place] [address] [email or web address] Medicine 08/05/18 documented as of this encounter Additional Source Comments The information contained in this document represents components of the legal health record. It is not the complete legal health record.[facility]
--- OUTSIDE RECORDS SUMMARY | 2024-12-27 12:03 | XMS_ITS | Encounter Summary ---
Author Organization [facility] Address [address] [place] [address] [place] [address] Phone Care Team Providers Care Barrel Drainer Name Role Phone Nga Charles CNP Primary Care Provider [phone] Jailene Sebastian MD Unavailable [phone] Encounter Details Date Type Department Care Team (Late st Contact Info) Description 04/09/2021 Procedure Pass , [address] [address] Social History Tobacco Use Types Packs/Day Years [...] on file documented as of this encounter Visit Diagnoses Not on filedocumented in this encounter Care Teams Barrel Drainer Relationship Specialty Start Date End Date Nga Charles CNP [address] [place] [address] [email or web address] PCP - General Family Medicine 08/05/18 Jailene Sebastian MD [address] [place] [address] [email or web address] Internal Medicine 08/05/18 documented as of this encounter Additional Source Comments The information contained in this document represents components of the legal health record. It is not the complete legal health record.[facility]
--- OUTSIDE RECORDS SUMMARY | 2024-12-27 12:03 | XMS_ITS | Encounter Summary ---
Author Organization [employer] Address [address] [facility] 7t [place] [address] Care Team Providers Care Washer Engineer Name Role Phone Nga Charles CNP Primary Care Provider [phone] Encounter Details Date Type Department Care Team (Late st Contact Info) Description 04/11/2023 Orders Only [facility] MEDICAL [address] [place], [place] [id number] Provider, MD Karen Social History Tobacco Use Types Packs/Day Years [...] Recorded Patient Health Questionnaire-2 Score 0 04/09/2022 Comments Unknown Sex and Gender Information Value Date Recorded Sex Assigned at Female 03/27/2022 3:56 PM EST Legal Sex Female 5:35 PM EDT Gender Identity Female 03/27/2022 3:56 PM EST Sexual Orientation Straight 04/09/2022 1: 36 PM EST documented as of this encounter Plan of Treatment Upcoming Encounters Date Type Department Care Team (Late st Contact Info) Description 12/27/2024 2:30 PM EDT Office Visit [facility] MEDICAL [address] [place] [address] Libby Malik MD [address] [place] [address] 02/06/2025 3:00 PM EST Office Visit [facility] MEDICAL [address] [place] [address] Nga Charles CNP [address] [place] [address] 02/28/2025 2:00 PM EST Office Visit [facility] DENTAL [address] [place] [address] Karen Lee documented as of this encounter Procedures Procedure Name Priority Date/Time Associated Diagnosis Comments CBC AND DIFFERENTIAL - WAM A ND NON-WAM Routine 02/02/2023 BASIC METABOLIC PANEL Routine 02/02/2023 documented in this encounter Results * Basic Metabolic Panel (02/02/2023) Blood Venous blood specimen / Unknown us Historical Provider LAB BLOOD ORDERABLES Marycarmen l Result * CBC and differential (02/02/2023) Blood Venous blood specimen / Unknown us Historical Provider LAB BLOOD ORDERABLES Marycarmen l Result documented in this encounter Visit Diagnoses Not on filedocumented in this encounter Care Teams Washer Engineer Relationship Specialty Start Date End Date Nga Charles CNP [address] [place] [address] PCP - General Family Medicine 04/10/22 documented as of this encounter
--- OUTSIDE RECORDS SUMMARY | 2024-12-27 12:04 | XMS_ITS | Encounter Summary ---
Author Organization [employer] Address [address] [facility] 7t [place] [address] Care Team Providers Care Elevator Constructor Helper Name Role Phone AraceliNga FOSTER Primary Care Provider [phone] Encounter Details Date Type Department Care Team (Late st Contact Info) Description 11/30/2024 Results Follow-Up [facility] MEDICAL [address] [place] [address] Libby Malik MD [address] [place] [address] Comprehensive Metabolic Panel [[id number]], CBC auto differential, TSH with Reflex to Free T4 [[id number]], Additional followed-up results: 2 Social History Tobacco Use Types Packs/Day Years Used Date Smoking Tobacco: Former Cigarettes Q uit: 02/27/1992 Smokeless Tobacco: Never Alcohol Use Standard Drinks/Week Comments Yes 0 (1 standard drink = 0.6 oz pur e alcohol) 1 a week Alcohol Answer Date Recorded How often do you have a drink containing alcohol ? 2 10/10/2024 How many drinks containing a lcohol do you have on a typical day when you are drinking? 0 10/10/2024 How often do you have six or more drinks on one occasion? 0 10/10/2024 Depression Answer Date Recorded Patient Health Questionnaire-9 Score 4 10/10/2024 Patient Health Questionnaire-9 Score 4 10/10/2024 Last PHQ-9: Questionnaire Data Not on file 0 10/10/2024 Housing Stability Answer Date Recorded What is your housing situation today? I have rl march 10/10/[address] you li ve. Do you have problems with any of the following? Pests such as bugs, ants, or mice;Lead [place] or Pipes;Mold 10/10/2024 Food Insecurity Answer Date Recorded Within the past 12 months, y ou worried that your food would run out before you got money to buy more: Never True 11/23/2023 Within the past 12 months,th e food you bought just didn't last and you didn't have enough money to get more: Never True Transportation Answer Date Recorded In the past 12 months, has l ack of transportation kept you from medical appts, meetings, work or from getting things needed for daily living? No 11/23/2023 Utilities Answer Date Recorded In the past 12 months, has t he electric, gas, oil or water company threatened to shut off services in your home? No 11/23/2023 Depression Answer Date Recorded Patient Health Questionnaire-2 Score 0 10/10/2024 Internet Access Answer Date Recorded Internet Access Q1 Yes 11/26/2023 Internet Access Q2 Not on file 11/26/2023 Education Answer Date Recorded What is the highest level of school you have completed or the highest degree you have received? 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 Elevate anaplasmosis titer. Given sx headache, chills, recent camping, discussed tx with doxycycline which pt would like. Reviewed risks, benefits and potential side effects. documented in this encounter Miscellaneous Notes * Telephone Encounter - [facility] - 12/26/2024 1:57 PM EDT Appointment booked documented in this encounter Plan of Treatment Upcoming Encounters Date Type Department Care Team (Late st Contact Info) Description 12/27/2024 2:30 PM EDT Office Visit [facility] MEDICAL [address] [place] [address] Libby Malik MD [address] [place] [address] 02/06/2025 3:00 PM EST Office Visit [facility] MEDICAL [address] [place] [address] Nga Charles CNP [address] [place] [address] 02/28/2025 2:00 PM EST Office Visit [facility] DENTAL [address] [place] [address] Karen Lee documented as of this encounter Visit Diagnoses Diagnosis Other fatigue- Primary Chills Chills (without fever) Positive anaplasmosis titer documented in this encounter Additional Health Concerns Assessment Noted Time PHQ-9 Depression Total Score: 4 10/11/19 25 12:31 PM EDT documented as of this encounter Care Teams Elevator Constructor Helper Relationship Specialty Start Date End Date Nga Charles CNP [address] [place] [address] PCP - General Family Medicine 04/10/22 documented as of this encounter
--- OUTSIDE RECORDS SUMMARY | 2024-12-27 12:04 | XMS_ITS | Encounter Summary ---
Author Organization [facility] Address [address] [place] [address] [place] [address] Phone Care Team Providers Care Pattern Maker Programer Name Role Phone Nga Charles CNP Primary Care Provider [phone] Jailene Sebastian MD Unavailable Encounter Details Date Type Department Care Team (Late st Contact Info) Description 04/04/2020 Procedure Pass [address] [address] Social History Tobacco Use Types Packs/Day Years Used Date Smoking Tobacco: Never Smokeless Tobacco: Never Alcohol Use Standard Drinks/Week Comments Yes 0 (1 standard drink = 0.6 oz pur e alcohol) 0 to 1 or less Comments No Sex and Gender Information Value Date Recorded Sex Assigned at Female 04/09/2021 2:33 PM EST Legal Sex Female 10:05 PM EDT Gender Identity Female 04/09/2021 2:33 PM EST Sexual Orientation Straight 04/09/2021 2: 33 PM EST documented as of this encounter Plan of Treatment Not on file documented as of this encounter Visit Diagnoses Not on filedocumented in this encounter Additional Health Concerns Infection Onset Date Last Indicated Resolved Time CoV-Risk Comment:Per Ambulatory Triage Form 03/17/2021 03/19/202103/29 1:22 AM EST documented as of this encounter Care Teams Pattern Maker Programer Relationship Specialty Start Date End Date Nga Charles CNP [address] [facility] [place] [address] [email or web address] PCP - General Family Medicine 08/05/18 Jailene Sebastian MD [address] [place] [address] [email or web address] Internal Medicine 08/05/18 documented as of this encounter Additional Source Comments The information contained in this document represents components of the legal health record. It is not the complete legal health record.[facility]
--- OUTSIDE RECORDS SUMMARY | 2024-12-27 12:04 | XMS_ITS | Encounter Summary ---
Author Organization [facility] Address [address] [place] [address] [place] [address] Phone Care Team Providers Care Tribunal Member Name Role Phone Jailene Sebastian MD Primary Care Provider [phone] Nga Charles CNP Primary Care Provider [phone] Jailene Sebastian MD Unavailable [phone] Encounter Details Date Type Department Care Team (Late st Contact Info) Description 09/08/2017 Procedure Pass [facility] Admitting Dept Virtual Department [address] [place] [address] Social History Tobacco Use Types Packs/Day Years Used Date Smoking Tobacco: Never Smokeless Tobacco: Never Alcohol Use Standard Drinks/Week Comments Yes 0 (1 standard drink = 0.6 oz pur e alcohol) 0 to 1 or less Comments Unknown Sex and Gender Information Value [...] documented as of this encounter Care Teams Tribunal Member Relationship Specialty Start Date End Date Jailene Sebastian MD [address] [facility] [place] [address] [email or web address] PCP - General Internal Medicine 09/08/17 08/04/18 Nga Charles CNP [address] [place] [address] [email or web address] PCP - General Family Medicine 08/05/18 Jailene Sebastian MD [address] [place] [address] [email or web address] Internal Medicine 08/05/18 documented as of this encounter Additional Source Comments The information contained in this document represents components of the legal health record. It is not the complete legal health record.[facility]
--- OUTSIDE RECORDS SUMMARY | 2024-12-27 12:04 | XMS_ITS | Encounter Summary ---
Author Organization [facility] Address [address] [place] [address] [place] [address] Phone Care Team Providers Care Retail Pharmacy Technician Name Role Phone Nga Charles CNP Primary Care Provider [phone] Jailene Sebastian MD Unavailable [phone] Reason for Referral * Outpatient Procedure - Closed Specialty Diagnoses / Procedures Referred By Alba cameron Referred To Contact Radiology Diagnoses Palpitations Essential hypertension Atypical chest pain Procedures US Carotid Duplex Complete (Bilateral) Nga Charles CNP Phone: tel: fax: [email or web address] Referral ID Status Reason Start Date Expiration Date Visits Re quested Visits Authorized [id number] Closed 11/23/2023 11/22/2024 1 1 Encounter Details Date Type Department Care Team (Latest Contact Info) Description 11/23/2023 Transcribe Orders Virtual Department [address] [place] [address] Nga Charles CNP [address] [place] [address] [email or web address] Palpitations (Primary Dx); Essential hypertension; Atypical chest pain Social History Tobacco Use Types Packs/Day Years Used Date Smoking Tobacco: Former Cigarettes 0.5 30 Smokeless Tobacco: Never Alcohol Use Standard Drinks/Week Comments Yes 1 (1 standard drink = 0.6 oz pure alcohol) 1 glass of wine or std drink once weekly or every other week Education Answer Date Recorded Are you interested in more education? Not on kyree e 07/24/2022 Are you concerned about learning? Not on file 07/24/2022 No 07/24/2022 No 07/24/2022 Digital Access Answer Date Recorded No 08/19/2022 No 08/19/2022 Reliable internet access at home? Not on file 08/19/2022 Device with a working camera? Not on file Comments No Sex and Gender Information Value Date Recorded Sex Assigned at Female 04/09/2021 2:33 PM EST Legal Sex Female 10:05 PM EDT Gender Identity Female 04/09/2021 2:33 PM EST Sexual Orientation Straight 04/09/2021 2: 33 PM EST documented as of this encounter Plan of Treatment Not on file documented as of this encounter Results * US Carotid Duplex Complete (Bilateral) (12/01/2023 2:34 PM EDT) Anatomical Region Laterality Modality Heart, Thoracic Vasculature, Neck Ultrasound 12/01/2023 3:03 PM EDT Impressions 12/02/2023 2:38 PM EDT 1. No stenosis noted in the right internal carotid artery. 2. No stenosis noted in the left internal carotid artery. 3. No stenosis is noted in the common carotid arteries bilaterally. 4. Unremarkable external carotid arteries bilaterally. 5. Antegrade flow in the bilateral cervical vertebral arteries. 6. Normal examination of the bilateral subclavian arteries. STENOSIS: Internal carotid artery stenosis by duplex ultrasonography has been validated by comparing findings with angiographic stenosis. NASCET methods were used, where the most severe stenosis represents the numerator, and the normal internal carotid artery diameter distal to the stenosis where the herman are parallel represents the denominator. Narrative 12/02/2023 2:38 PM EDT US CAROTID DUPLEX COMPLETE (BILATERAL) Referring clinician's provided indication for this examination in Epic: Outside Radiology Order; palpitations TECHNIQUE: A duplex ultrasound evaluation of the common carotid, internal carotid, external carotid, vertebral, and subclavian arteries was performed using monte scale, color duplex and spectral Doppler analysis. COMPARISON: No relevant prior exams. FINDINGS: Technically adequate exam demonstrates: RIGHT Common Carotid Artery (cm/s): Proximal Systolic: 85 Proximal Diastolic: 20 Distal Systolic: 69 Distal Diastolic: 19 Internal Carotid Artery (cm/s): Proximal Systolic: 69 Proximal Diastolic: 17 Mid Systolic: 83 Mid Diastolic: 26 Distal Systolic: 83 Distal Diastolic: 28 External Carotid Artery (cm/s): Systolic: 96 Diastolic: 20 Vertebral Artery (cm/s): Systolic: 60 Diastolic: 16 Subclavian Artery (cm/s): Systolic: 85 Diastolic: 12 ICA/CCA Ratio: 1.20 ICA Stenosis: Normal ICA Plaque: None Visualized LEFT Common Carotid Artery (cm/s): Proximal Systolic: 98 Proximal Diastolic: 25 Distal Systolic: 72 Distal Diastolic: 22 Internal Carotid Artery (cm/s): Proximal Systolic: 87 Proximal Diastolic: 20 Mid Systolic: 98 Mid Diastolic: 30 Distal Systolic: 98 Distal Diastolic: 37 External Carotid Artery (cm/s): Systolic: 71 Diastolic: 15 Vertebral Artery (cm/s): Systolic: 72 Diastolic: 25 Subclavian Artery(cm/s): Systolic: 63 Diastolic: 11 ICA/CCA Ratio: 1.36 ICA Stenosis: Normal ICA Plaque: None Visualized Abbreviations: CCA = Common Carotid Artery. ICA = Internal Carotid Artery. ECA = External Carotid Artery. Vert = Vertebral Artery. ICA/CCA Ratio = maximal ICA PSV divided by the distal CCA PSV. DIRECT TEST FINDINGS: Right: Doppler flow velocities and waveform contours are within normal limits throughout the right internal carotid artery, no plaque is visualized. No plaque is visualized in the right common carotid artery. Unremarkable right external carotid artery. Antegrade flow is noted in the right vertebral artery. The right subclavian artery is patent. Left: Doppler flow velocities and waveform contours are within normal limits throughout the left internal carotid artery, no plaque is visualized. No plaque is visualized in the left common carotid artery. Unremarkable left external carotid artery. Antegrade flow is noted in the left vertebral artery. The left subclavian artery is patent. Procedure Note Yady Lamar MD - 12/02/2023 US CAROTID DUPLEX COMPLETE (BILATERAL) Referring clinician's provided indication for this examination in Epic:Outside Radiology Order; palpitations TECHNIQUE: A duplex ultrasound evaluation of the common carotid, internalcarotid, external carotid, vertebral, and subclavian arteries wasperformed using monte scale, color duplex and spectral Doppler analysis. COMPARISON: No relevant prior exams. FINDINGS: Technically adequate exam demonstrates: RIGHT Common Carotid Artery (cm/s): Proximal Systolic: 85 Proximal Diastolic: 20 Distal Systolic: 69 Distal Diastolic: 19 Internal Carotid Artery (cm/s): Proximal Systolic: 69 Proximal Diastolic: 17 Mid Systolic: 83 Mid Diastolic: 26 Distal Systolic: 83 Distal Diastolic: 28 External Carotid Artery (cm/s): Systolic: 96 Diastolic: 20 Vertebral Artery (cm/s): Systolic: 60 Diastolic: 16 Subclavian Artery (cm/s): Systolic: 85 Diastolic: 12 ICA/CCA Ratio: 1.20 ICA Stenosis: Normal ICA Plaque: None Visualized LEFT Common Carotid Artery (cm/s): Proximal Systolic: 98 Proximal Diastolic: 25 Distal Systolic: 72 Distal Diastolic: 22 Internal Carotid Artery (cm/s): Proximal Systolic: 87 Proximal Diastolic: 20 Mid Systolic: 98 Mid Diastolic: 30 Distal Systolic: 98 Distal Diastolic: 37 External Carotid Artery (cm/s): Systolic: 71 Diastolic: 15 Vertebral Artery (cm/s): Systolic: 72 Diastolic: 25 Subclavian Artery(cm/s): Systolic: 63 Diastolic: 11 ICA/CCA Ratio: 1.36 ICA Stenosis: Normal ICA Plaque: None Visualized Abbreviations: CCA = Common Carotid Artery. ICA = Internal Carotid Artery. ECA =External Carotid Artery. Vert = Vertebral Artery. ICA/CCA Ratio = maximalICA PSV divided by the distal CCA PSV. DIRECT TEST FINDINGS: Right: Doppler flow velocities and waveform contours are within normallimits throughout the right internal carotid artery, no plaque isvisualized. No plaque is visualized in the right common carotid artery.Unremarkable right external carotid artery. Antegrade flow is noted in theright vertebral artery. The right subclavian artery is patent. Left: Doppler flow velocities and waveform contours are within normallimits throughout the left internal carotid artery, no plaque isvisualized. No plaque is visualized in the left common carotid artery.Unremarkable left external carotid artery. Antegrade flow is noted in theleft vertebral artery. The left subclavian artery is patent. IMPRESSION: 1. No stenosis noted in the right internal carotid artery. 2. No stenosis noted in the left internal carotid artery. 3. No stenosis is noted in the common carotid arteries bilaterally. 4. Unremarkable external carotid arteries bilaterally. 5. Antegrade flow in the bilateral cervical vertebral arteries. 6. Normal examination of the bilateral subclavian arteries. STENOSIS: Internal carotid artery stenosis by duplex ultrasonography hasbeen validated by comparing findings with angiographic stenosis. NASCETmethods were used, where the most severe stenosis represents thenumerator, and the normal internal carotid artery diameter distal to thestenosis where the herman are parallel represents the denominator. us Nga Charles ANALYTICAL SCIENTIST CV US NEUROVASCULAR Final Result documented in this encounter Visit Diagnoses Diagnosis Palpitations- Primary Essential hypertension Unspecified essential hypertension Atypical chest pain Other chest pain Palpitations Essential hypertension Unspecified essential hypertension Atypical chest pain Other chest pain documented in this encounter Care Teams Retail Pharmacy Technician Relationship Specialty Start Date End Date Nga Charles CNP [address] [place] [address] [email or web address] PCP - General Family Medicine 08/05/18 Jailene Sebastian MD [address] [place] [address] [email or web address] Internal Medicine 08/05/18 documented as of this encounter Additional Source Comments The information contained in this document represents components of the legal health record. It is not the complete legal health record.[facility]
--- OUTSIDE RECORDS SUMMARY | 2024-12-27 12:04 | XMS_ITS | Encounter Summary ---
Author Organization [employer] Address [address] [place] [address] 7 [place] [address] Care Team Providers Care Retrieval Specialist Name Role Phone Nga Charles CNP Primary Care Provider [phone] Encounter Details Date Type Department Care Team (Latest Contact Info) Description 07/03/2021 Abstract [facility] CONVERSIONS Dental, Provider, DDS Social History Tobacco Use Types Packs/Day Years Used Date Smoking Tobacco: Never Assessed Comments Unknown Sex and Gender Information Value [...] Description 12/27/2024 2:30 PM EDT Office Visit [facility] MEDICAL [address] [place] [address] Libby Malik MD [address] [place] [address] 02/06/2025 3:00 PM EST Office Visit [facility] MEDICAL [address] [place] [address] Nga Charles CNP [address] [place] [address] 02/28/2025 2:00 PM EST Office Visit [facility] DENTAL [address] [place] [address] Karen Lee documented as of this encounter Visit Diagnoses Not on filedocumented in this encounter Care Teams Retrieval Specialist Relationship Specialty Start Date End Date Nga Charles CNP [address] [place] [address] PCP - General Family Medicine 04/10/22 documented as of this encounter
--- OUTSIDE RECORDS SUMMARY | 2024-12-27 12:04 | XMS_ITS | Encounter Summary ---
Author Organization [facility] Address [address] [place] [address] Phone Care Team Providers Care Cat Scan Technologist Name Role Phone Nga Charles CNP Primary Care Provider [phone] Jailene Sebastian MD Unavailable [phone] Encounter Details Date Type Department Care Team (Latest Contact Info) Description 04/09/2021 Transcribe Orders Virtual Department [address] [place] [address] Nga Charles CNP [address] [place] [address] [email or web address] Post-menopausal (Primary Dx) Social History Tobacco Use Types [...] documented as of this encounter Results * BD DXA AXIAL (SPINE) WITH HIP (07/15/2021 3:35 PM EDT) Anatomical Region Laterality Modality Bone Density Bone Density 07/15/2021 3:46 PM EDT Impressions 07/15/2021 3:48 PM EDT Normal bone density. Reference Information: The T-score is the number of standard deviations above or below the standard which is normal for young adults at their peak bone mineral density. The World Health Organization (WHO) interprets the T-scores as follows: Above -1 Normal bone density Between -1 and -2.5Osteopenia Equal to / or below -2.5Osteoporosis As a practical clinical guideline, osteopenia may be graded as follows: Mild -1 through -1.5 Moderate -1.6 through -2.0 Severe-2.1 through -2.4 References: 1. NIH Osteoporosis and Related Bone Diseases http://www.osteo.org 2. International Society for Clinical Densitometry http://www.iscd.org 3. National Osteoporosis Foundation http://www.nof.org Narrative 07/15/2021 3:48 PM EDT STUDY: DUAL ENERGY X-RAY ABSORPTIOMETRY / DXA REASON FOR EXAM: Female, 75 years old. TECHNIQUE: Bone Mineral Density (BMD) measurements of the lumbar spine and femoral necks were obtained. COMPARISON: 10/31/2015 FINDINGS: L1-L4 T score: 2.9. This corresponds to Normal bone density. This represents a 4.5 % increase in bone density compared with prior exam from 10/31/2015. Right femoral neck T score: 0.9. This corresponds to Normal bone density. This represents a -2.6 % decrease in bone density compared with prior exam from 10/31/2015. Left femoral neck T score: 0.9. This corresponds to Normal bone density. This represents a -0.4 % decrease in bone density compared with prior exam from 10/31/2015. Procedure Note Matthew Calvillo MD - 07/15/2021 STUDY: DUAL ENERGY X-RAY ABSORPTIOMETRY / DXA REASON FOR EXAM: Female, 75 years old. TECHNIQUE: Bone Mineral Density (BMD) measurements of the lumbar spineand femoral necks were obtained. COMPARISON: 10/31/2015 FINDINGS: L1-L4 T score: 2.9. This corresponds to Normal bone density. This represents a 4.5 % increase in bone density compared with prior examfrom 10/31/2015. Right femoral neck T score: 0.9. This corresponds to Normal bonedensity. This represents a -2.6 % decrease in bone density compared with prior examfrom 10/31/2015. Left femoral neck T score: 0.9. This corresponds to Normal bonedensity. This represents a -0.4 % decrease in bone density compared with prior examfrom 10/31/2015. IMPRESSION: Normal bone density. Reference Information: The T-score is the number of standard deviations above or below thestandard which is normal for young adults at their peak bone mineraldensity. The World Health Organization (WHO) interprets the T-scores asfollows: Above -1 Normal bone density Between -1 and -2.5Osteopenia Equal to / or below -2.5Osteoporosis As a practical clinical guideline, osteopenia may be graded as follows: Mild -1 through -1.5 Moderate -1.6 through -2.0 Severe-2.1 through -2.4 References: 1. NIH Osteoporosis and Related Bone Diseases http://www.osteo.org 2. International Society for Clinical Densitometry http://www.iscd.org 3. National Osteoporosis Foundation http://www.nof.org us Nga Charles MANAGER INSPECTION IMG BD BONE DENSITY DEXA Final Result documented in this encounter Visit Diagnoses Diagnosis Post-menopausal- Primary Asymptomatic postmenopausal status (age-related) (natural) Post-menopausal Asymptomatic postmenopausal status (age-related) (natural) documented in this encounter Care Teams Cat Scan Technologist Relationship Specialty Start Date End Date Nga Charles CNP [address] [place] [address] [email or web address] PCP - General Family Medicine 08/05/18 Jailene Sebastian MD [address] [place] [address] [email or web address] Internal Medicine 08/05/18 documented as of this encounter Additional Source Comments The information contained in this document represents components of the legal health record. It is not the complete legal health record.[facility]
--- OUTSIDE RECORDS SUMMARY | 2024-12-27 12:04 | XMS_ITS | Encounter Summary ---
Author Organization [employer] Address [address] [place] [address] 7 [place] [address] Care Team Providers Care Safety Glass Installer Name Role Phone Nga Charles CNP Primary Care Provider [phone] Encounter Details Date Type Department Care Team (Latest Contact Info) Description 05/18/2018 Abstract [facility] CONVERSIONS Dental, Provider, DDS Social [...] Description 12/27/2024 2:30 PM EDT Office Visit [facility] MEDICAL [address] [place] [address] Libby Malik MD [address] [place] [address] 02/06/2025 3:00 PM EST Office Visit [facility] MEDICAL [address] [place] [address] Nga Charles CNP [address] [place] [address] 02/28/2025 2:00 PM EST Office Visit [facility] DENTAL [address] [place] [address] Karen Lee documented as of this encounter Visit Diagnoses Not on filedocumented in this encounter Care Teams Safety Glass Installer Relationship Specialty Start Date End Date Nga Charles CNP [address] [place] [address] PCP - General Family Medicine 04/10/22 documented as of this encounter
--- OUTSIDE RECORDS SUMMARY | 2024-12-27 12:04 | XMS_ITS | Encounter Summary ---
Author Organization [facility] Address [address] [place] [address] Phone Care Team Providers Care Examination Proctor Name Role Phone Nga Charles CNP Primary Care Provider [phone] Jailene Sebastian MD Unavailable [phone] Encounter Details Date Type Department Care Team (Latest Contact Info) Description 04/09/2021 Transcribe Orders Virtual Department [address] [place] [address] Nga Charles CNP [address] [place] [address] [email or web address] Encounter for screening mammogram for malignant neoplasm of breast (Primary Dx) Social History Tobacco Use Types [...] documented as of this encounter Results * BI MAMMOGRAM SCREENING WITH TOMOSYNTHESIS WITH CAD (BILATERAL) (05/15/2021 1:45 PM EST) Anatomical Region Laterality Modality Breast Left, Breast Right, Breast Bilateral Bila teral Mammography 05/15/2021 5:22 PM EST Impressions 05/15/2021 5:24 PM EST BILATERAL BREASTS: Negative, no evidence of malignancy. Normal interval follow- up is recommended in 12 months. Bi-RADS: BI-RADS CATEGORY: 1 - Negative. DENSITY: There are scattered fibroglandular densities. Narrative 05/15/2021 5:24 PM EST STUDY: Bilateral screening mammography with tomosynthesis and CAD TECHNIQUE: Bilateral full-field digital screening mammography is obtained and read in conjunction with computer-aided detection. Tomosynthesis as well as 2-D C view imaging were obtained. COMPARISON: Comparison made to multiple prior, most recent April 19, 2020, and most remote April 10, 2009. BREAST COMPOSITION: There are scattered areas of fibroglandular density BILATERAL BREASTS: No significant masses, suspicious calcifications or other abnormalities are seen. Procedure Note Marilyn Woods MD - 05/15/2021 STUDY: Bilateral screening mammography with tomosynthesis and CAD TECHNIQUE: Bilateral full-field digital screening mammography is obtainedand read in conjunction with computer-aided detection. Tomosynthesis aswell as 2-D C view imaging were obtained. COMPARISON: Comparison made to multiple prior, most recent March, and most remote April 10, 2009. BREAST COMPOSITION: There are scattered areas of fibroglandulardensity BILATERAL BREASTS: No significant masses, suspicious calcifications orother abnormalities are seen. IMPRESSION: BILATERAL BREASTS: Negative, no evidence of malignancy. Normal intervalfollow-up is recommended in 12 months. Bi-RADS: BI-RADS CATEGORY: 1 - Negative. DENSITY: There are scattered fibroglandular densities. Nga Charles CNP IMG MG EXAMS Final Res ult documented in this encounter Visit Diagnoses Diagnosis Encounter for screening mammogram for malignant neoplasm of breast- Primary Encounter for screening mammogram for malignant neoplasm of breast documented in this encounter Care Teams Examination Proctor Relationship Specialty Start Date End Date Nga Charles CNP [address] [place] [address] [email or web address] PCP - General Family Medicine 08/05/18 Jailene Sebastian MD [address] [place] [address] [email or web address] Internal Medicine 08/05/18 documented as of this encounter Additional Source Comments The information contained in this document represents components of the legal health record. It is not the complete legal health record.[facility]
--- OUTSIDE RECORDS SUMMARY | 2024-12-27 12:04 | XMS_ITS | Encounter Summary ---
Author Organization [facility] Address [address] [place] [address] [place] [address] Phone Care Team Providers Care Regional Company Truck Driver Name Role Phone Nga Charles CNP Primary Care Provider [phone] Jailene Sebastian MD Unavailable [phone] Encounter Details Date Type Department Care Team (Latest Contact Info) Description 05/20/2023 Transcribe Orders Virtual Department [address] [place] [address] Nag Charles, FOSTER [address] [place] [address] [email or web address] Breast screening (Primary Dx) Social History Tobacco Use Types [...] MAMMOGRAM SCREENING WITH TOMOSYNTHESIS WITH CAD (BILATERAL) (03/10/2024 1:50 PM EST) Anatomical Region Laterality Modality Breast Left, Breast Right, Breast Bilateral Bila teral Mammography 03/13/2024 8:15 AM EST Impressions 03/13/2024 8:16 AM EST No mammographic evidence of malignancy in either breast. Annual screening mammography is recommended. BI-RADS 1 NEGATIVE The patient will be notified of the results and recommendations. Narrative 03/13/2024 8:16 AM EST BI MAMMOGRAM SCREENING WITH TOMOSYNTHESIS WITH CAD (BILATERAL) Additional patient information: Screening. COMPARISON: Comparison is made with relevant prior imaging. Breast composition: There are scattered areas of fibroglandular density. FINDINGS: No abnormal masses, suspicious calcifications, or other significant findings are identified mammographically in either breast. Procedure Note Latosha Palacios MD - 03/13/2024 BI MAMMOGRAM SCREENING WITH TOMOSYNTHESIS WITH CAD (BILATERAL) Additional patient information: Screening. COMPARISON: Comparison is made with relevant prior imaging. Breast composition: There are scattered areas of fibroglandular density. FINDINGS: No abnormal masses, suspicious calcifications, or other significantfindings are identified mammographically in either breast. IMPRESSION: No mammographic evidence of malignancy in either breast. Annual screening mammography is recommended. BI-RADS 1 NEGATIVE The patient will be notified of the results and recommendations. Nga Charles CNP IMG MG EXAMS Final Res ult documented in this encounter Visit Diagnoses Diagnosis Breast screening- Primary Breast screening, unspecified Breast screening Breast screening, unspecified documented in this encounter Care Teams Regional Company Truck Driver Relationship Specialty Start Date End Date Nga Charles CNP [address] [place], [place] [id number] [email or web address] PCP - General Family Medicine 08/05/18 Jailene Sebastian MD [address] [place] [address] [email or web address] Internal Medicine 08/05/18 documented as of this encounter Additional Source Comments The information contained in this document represents components of the legal health record. It is not the complete legal health record.[facility]
--- OUTSIDE RECORDS SUMMARY | 2024-12-27 12:04 | XMS_ITS | Encounter Summary ---
Author Organization [employer] Address [address] [place] [address] 7 [place] [address] Care Team Providers Care Structural Metal Fabricator Apprentice Name Role Phone Nga Charles CNP Primary Care Provider [phone] Encounter Details Date Type Department Care Team (Latest Contact Info) Description 01/13/2021 Abstract [facility] CONVERSIONS Dental, Provider, DDS Social [...] Description 12/27/2024 2:30 PM EDT Office Visit [facility] MEDICAL [address] [place] [address] Libby Malik MD [address] [place] [address] 02/06/2025 3:00 PM EST Office Visit [facility] MEDICAL [address] [place] [address] Nga Charles CNP [address] [place] [address] 02/28/2025 2:00 PM EST Office Visit [facility] DENTAL [address] [place] [address] Karen Lee documented as of this encounter Visit Diagnoses Not on filedocumented in this encounter Care Teams Structural Metal Fabricator Apprentice Relationship Specialty Start Date End Date Nga Charles CNP [address] [place] [address] PCP - General Family Medicine 04/10/22 documented as of this encounter
--- OUTSIDE RECORDS SUMMARY | 2024-12-27 12:04 | XMS_ITS | Clinical Summary ---
Author Organization [facility] Address [address] [place] [address] Phone Care Team Providers Care Fixed Wing Aircraft Flight Mechanic Name Role Phone Nga Charles CNP Primary Care Provider [phone] Jailene Sebastian MD Unavailable [phone] Allergies Active Allergy Reactions Criticality Noted Date Comments Sinclair Pepper Diarrhea 08/31/2017 [place] Capsicum Diarrhea 08/31/2017 [place] Colistimethate 03/31/2022 Other reaction(s): hives [place] 06/17/2021 House Dust Mite Sneezing 08/31/2017 [place] Famotidine 06/17/2021 Latex Itching Medium 03/27/2022 Mite Extract 06/17/2021 Mold 03/19/2022 Other reaction(s): Unknown Neomycin Hives 08/31/2017 ? Colymycin S Otic Sulfa (Sulfonamide Antibiotics) Anaphylaxis High 08/31/2017 Other reaction(s): Other (see comments) Wool 03/19/2022 Other reaction(s): Unknown Medications cetirizine (ZYRTEC) 10 MG tabletIndicatio ns:allergic rhinitis Take 10 mg by mouth as needed for allergies. Indications: Allergic Rhinitis Active fexofenadine (LD) 60 MG tabletIndicatio ns:allergic rhinitis,Takes 180mg @ times Take 180 mg by mouth as needed. Indications: inflammation of the nose due to an allergy, Takes 180mg @ times Active calcium carbonate 500 mg (200 mg elemental) chewable tablet Take 1 tablet by mouth as needed for heartburn. Active ascorbic acid, vitamin C, (VITAMIN C) 250 MG tablet Take 250 mg by mouth daily. Active ferrous sulfate 325 mg (65 mg [place] iron) tablet Take 325 mg by mouth daily with breakfast. Active clobetasol (CLOBEX) 0.05 % lotion Apply 1 application. topically as needed. Active betamethasone, augmented, (DIPROLENE) 0.05 % lotion Apply 1 application. topically as needed. Active loperamide (IMODIUM) 2 mg capsule Take 2 mg by mouth 4 (four) times a day as needed for diarrhea. Active acetaminophen (TYLENOL) 500 MG tablet Take 500 mg by mouth every 6 (six) hours as needed for pain (specific location in comments). Active cholecalciferol , vitamin D3, 1,000 unit capsule Take 1,000 Units by mouth daily. Active amLODIPine (NORVASC) 5 MG tablet Take 2.5 mg by mouth daily. Active nitroglycerin (NITROSTAT) 0.[address] 0.4 mg under the tongue every 5 (five) minutes as needed for chest pain. Active amoxicillin (AMOXIL) 500 MG capsule Take 500 mg by mouth After Meals as needed. ONLY FOR DENTAL APPOINTMENT 2 Active Active Problems Problem Noted Date Diagnosed Date Atypical chest pain 09/13/2018 Abnormal electrocardiogram 05/26/2018 Palpitations 05/23/2018 History of rheumatic fever as a child 05/23/2018 Overview (05/23/2018): Echo October 2015, trace to mild mitral and aortic regurgitation, normal ejection fraction Encounters Date Type Department Care Team Description 10/10/2024 Transcribe Orders Virtual Department [address] [place] [address] Nga Charles CNP Pain and swelling of left lower leg (Primary Dx) from Last 3 Months Family History Medical History Relation Comments Cancer Father Half Brother on father's side Breast cancer Maternal Aunt Breast cancer Mother Mother's sister Relation Status Comments Father Maternal Aunt Mother Social History Tobacco Use Types Packs/Day Years Used Date Smoking Tobacco: Former Cigarettes 0.5 30 Smokeless Tobacco: Never Tobacco Cessation:Counseling Given: Not Answered Alcohol Use Standard Drinks/Week Comments Yes 1 [...] Orientation Straight 04/09/2021 2: 33 PM EST Last Filed Vital Signs Vital Sign Reading Time Taken Comments Blood Pressure 118/70 08/20/2022 1:56 PM EDT Pulse 77 08/20/2022 1:56 PM EDT Temperature 36.2 C (97.2 F) 09/08/2017 11:48 AM EDT Respiratory Rate 20 09/08/2017 12:07 PM EDT Oxygen Saturation 97% 08/20/2022 1:56 PM EDT Inhaled Oxygen Concentration - - Weight 71.7 kg (158 lb) 08/20/2022 1:56 PM EDT Height 162.6 cm (5' 4.02 ) 08/20/2022 1:56 PM ED T Body Mass Index 27.11 08/20/2022 1:56 PM EDT Plan of Treatment Health Maintenance Due Date Last Done Comments DEPRESSION SCREENING 1959 SMOKING Hx and SMOKELESS TOBACCO SCREENING 11/04/1960 HEPATITIS C SCREENING 11/04/1965 ZOSTER VACCINES (1 of 2) 11/04/1997 RSV VACCINE (1 - 1-dose 75+ series) 11/04/2022 INFLUENZA VACCINE (#1) 2024 , 02/11/2022, 04/08/2021, Additional history exists COVID-19 VACCINE (2024- season) 2024 04/20/2023, 04/18/2021, 07/11/2020, Additional history exists LIPID PANEL 11/24/2028 11/25/2023, 05/26/2018 Adult Td,Tdap Booster 05/22/2032 05/22/2022, 012 OSTEOPOROSIS SCREENING INITIAL (ONE-TIME) Completed 07/15/2021 PNEUMOCOCCAL VACCINES (50+ years) Completed 04/06/2023, 03/13/2013 HEPATITIS A VACCINES Aged Out No long er eligible based on patient's age to complete this topic HIB VACCINES Aged Out No longer eligi ble based on patient's age to complete this topic MENINGOCOCCAL VACCINES (ACWY) Aged Out No longer eligible based on patient's age to complete this topic MENINGOCOCCAL VACCINES (B) Aged Out N o longer eligible based on patient's age to complete this topic Medical Devices Not on file Procedures Procedure Name Priority Date/Time Associated Diagnosis Comments BD DXA AXIAL (SPINE) WITH HIP Routine 07/15/2021 3:35 PM EDT Post-menopausal LIPID PANEL Routine 05/26/2018 3:25 PM EST Hyperlipidemia, unspecified hyperlipidemia type from Last 3 Months or Most Recently Relevant to Health Maintenance Results * BD DXA AXIAL (SPINE) WITH [...] Densitometry http://www.iscd.org 3. National Osteoporosis Foundation http://www.nof.org Nga Charles [facility] IM BD BONE DENSITY DEXA Final Result * (ABNORMAL) Lipid panel (05/26/2018 3:25 PM EST) HDL 56 mg/dL [facility] Comment: Interpretation <40 mg/dL: Low HDL cholesterol (major risk factor for CHD) Greater than or equal to 60 mg/dL: High HDL cholesterol ( negative risk factor for CHD) HDL - cholesterol is affected by a number of factors, e.g. smoking, excerise, hormones, sex and age. CHOLESTEROL 141 0 - 240 mg/dL [facility] TRIGLYCERIDES 97 30 - 160 mg/dL [facility] LDL 66 50 - 129 mg/dL [facility] Comment: LDL levels in terms of risk for coronary heart disease: <100 mg/dL: Optimal 100-129 mg/dL: Near or above optimal 130-159 mg/dL: Borderline high 160-189 mg/dL: High >190 mg/dL: Very High CARDIAC RISK RATIO 2.5(L) 3.3 - 4.4 C [facility] Blood 05/26/2018 3:25 PM EST 05/26/2018 3:26 PM EST us Blake Scott MD LAB BLOOD ORDERABLES Marycarmen albert Result [facility] [address] [place] [address] from Last 3 Months or Most Recently Relevant to Health Maintenance Insurance [employer] REPL[employer]EMENT [employer] REPLACEMENT [employer] Care Teams Fixed Wing Aircraft Flight Mechanic Relationship Specialty Start Date End Date Nga Charles CNP [address] [facility] [place] [email or web address] PCP - General Family Medicine 08/05/18 Jailene Sebastian MD [address] [facility] [place] [email or web address] Internal Medicine 08/05/18 Additional Source Comments The information contained in this document represents components of the legal health record. It is not the complete legal health record.[facility]
--- OUTSIDE RECORDS SUMMARY | 2024-12-27 12:04 | XMS_ITS | Encounter Summary ---
Author Organization [facility] Address [address] [place] [address] [place] [address] Phone Care Team Providers Care Agent Ticketing Gate Name Role Phone Nga Charles CNP Primary Care Provider [phone] Jailene Sebastian MD Unavailable [phone] Encounter Details Date Type Department Care Team (Late st Contact Info) Description 05/20/2023 Procedure Pass [facility], [address] [address] Social History Tobacco Use Types Packs/Day Years [...] on filedocumented in this encounter Care Teams Agent Ticketing Gate Relationship Specialty Start Date End Date Nga Charles CNP [address] [place] [address] [email or web address] PCP - General Family Medicine 08/05/18 Jailene Sebastian MD [address] [place] [address] [email or web address] Internal Medicine 08/05/18 documented as of this encounter Additional Source Comments The information contained in this document represents components of the legal health record. It is not the complete legal health record.[facility]
--- OUTSIDE RECORDS SUMMARY | 2024-12-27 12:04 | XMS_ITS | Encounter Summary ---
Author Organization [employer] Address [address] [place] [address] 7 [place] [address] Care Team Providers Care Section Leader And Machine Setter Name Role Phone Nga Charles CNP Primary Care Provider [phone] Encounter Details Date Type Department Care Team (Latest Contact Info) Description 03/26/2020 Abstract [facility] CONVERSIONS Dental, Provider, DDS Social [...] Description 12/27/2024 2:30 PM EDT Office Visit [facility] MEDICAL [address] [place] [address] Libby Malik MD [address] [place] [address] 02/06/2025 3:00 PM EST Office Visit [facility] MEDICAL [address] [place] [address] Nga Charles CNP [address] [place] [address] 02/28/2025 2:00 PM EST Office Visit [facility] DENTAL [address] [place] [address] Karen Lee documented as of this encounter Visit Diagnoses Not on filedocumented in this encounter Care Teams Section Leader And Machine Setter Relationship Specialty Start Date End Date Nga Charles CNP [address] [place] [address] PCP - General Family Medicine 04/10/22 documented as of this encounter
--- OUTSIDE RECORDS SUMMARY | 2024-12-27 12:04 | XMS_ITS | Encounter Summary ---
Author Organization [facility] Address [address] [place] [address] Phone Care Team Providers Care Reel Hooker Name Role Phone Nga Charles CNP Primary Care Provider [phone] Jailene Sebastian MD Unavailable [phone] Encounter Details Date Type Department Care Team (Late st Contact Info) Description 04/04/2020 Ancillary Orders Virtual Department [address] [place] [address] Nga Charles, FOSTER [address] [place] [address] [email or web address] Breast screening Social History Tobacco Use Types Packs/Day Years [...] MAMMOGRAM SCREENING WITH TOMOSYNTHESIS WITH CAD (BILATERAL) (04/19/2020 1:34 PM EST) Anatomical Region Laterality Modality Breast Left, Breast Right, Breast Bilateral Bila teral Mammography 04/19/2020 2:11 PM EST Impressions 04/19/2020 2:16 PM EST No mammographic signs of malignancy. Annual screening is recommended. BI-RADS CATEGORY: 2 - Benign finding. DENSITY: There are scattered fibroglandular densities. Narrative 04/19/2020 2:16 PM EST Bilateral mammography is performed in conjunction with computed aided detection. 3-D tomography along with 2-D C view imaging was also performed. Comparison made to previous dated as far back as 04/10/2019 and as recent as 07/25/2018. No suspicious masses, areas of architectural distortion or suspicious microcalcifications. Diffuse bilateral microcalcifications with benign characteristics are stable. Procedure Note Nicolas Garcia MD - 04/19/2020 Bilateral mammography is performed in conjunction with computed aideddetection. 3-D tomography along with 2-D C view imaging was alsoperformed. Comparison made to previous dated as far back as 04/10/2019 andas recent as 07/25/2018. No suspicious masses, areas of architectural distortion or suspiciousmicrocalcifications. Diffuse bilateral microcalcifications with benigncharacteristics are stable. IMPRESSION: No mammographic signs of malignancy. Annual screening is recommended. BI-RADS CATEGORY: 2 - Benign finding. DENSITY: There are scattered fibroglandular densities. Nga Charles CNP IMG MG EXAMS Final Res ult documented in this encounter Visit Diagnoses Diagnosis Breast screening Breast screening, unspecified Breast screening Breast screening, unspecified documented in this encounter Additional Health Concerns Infection Onset Date Last Indicated Resolved Time CoV-Risk Comment:Per Ambulatory Triage Form 03/17/2021 03/19/202103/29 1:22 AM EST documented as of this encounter Care Teams Reel Hooker Relationship Specialty Start Date End Date Nga Charles CNP [address] [place] [address] PCP - General Family Medicine 08/05/18 Jailene Sebastian MD [address] [place] [address] [email or web address] Internal Medicine 08/05/18 documented as of this encounter Additional Source Comments The information contained in this document represents components of the legal health record. It is not the complete legal health record.[facility]
--- OUTSIDE RECORDS SUMMARY | 2024-12-27 12:04 | XMS_ITS | Encounter Summary ---
Author Organization [employer] Address [address] [place] [address] [address] [place] [address] Care Team Providers Care Gaming Floor Supervisor Name Role Phone Nga Charles CNP Primary Care Provider [phone] Encounter Details Date Type Department Care Team (Latest Contact Info) Description 10/23/2021 Abstract [facility] CONVERSIONS Dental, Provider, DDS Social [...] Description 12/27/2024 2:30 PM EDT Office Visit [facility] MEDICAL [address] [place] [address] Libby Malik MD [address] [place] [address] 02/06/2025 3:00 PM EST Office Visit [facility] MEDICAL [address] [place] [address] Nga Charles CNP [address] [place] [address] 02/28/2025 2:00 PM EST Office Visit [facility] DENTAL [address] [place] [address] Karen Lee documented as of this encounter Visit Diagnoses Not on filedocumented in this encounter Care Teams Gaming Floor Supervisor Relationship Specialty Start Date End Date Nga Charles CNP [address] [place] [address] PCP - General Family Medicine 04/10/22 documented as of this encounter
--- OUTSIDE RECORDS SUMMARY | 2024-12-27 12:04 | XMS_ITS | Encounter Summary ---
Author Organization [facility] Address [address] [place] [address] Phone Care Team Providers Care Water/Wastewater Engineer Name Role Phone Jailene Sebastian MD Primary Care Provider [phone] Nga Charles CNP Primary Care Provider [phone] Jailene Sebastian MD Unavailable [phone] Encounter Details Date Type Department Care Team (Late st Contact Info) Description 07/22/2018 Ancillary Orders Virtual Department [address] [place] [address] Nga Charles, WRIST LINER [address] [place] [address] [email or web address] Breast screening Social History Tobacco Use [...] MAMMOGRAM SCREENING WITH TOMOSYNTHESIS WITH CAD (BILATERAL) (07/25/2018 3:44 PM EDT) Anatomical Region Laterality Modality Breast Left, Breast Right, Breast Bilateral Bila teral Mammography 07/26/2018 12:5 1 PM EDT Impressions 07/26/2018 12:53 PM EDT No mammographic evidence of malignancy. RECOMMENDED FOLLOWUP: Routine screening mammography is recommended, as clinically appropriate. The results will be sent to the patient. BI-RADS CATEGORY: 2 - Benign finding. BREAST DENSITY: There are scattered fibroglandular densities. POS - [id number] Narrative 07/26/2018 12:53 PM EDT BI MAMMOGRAM SCREENING WITH TOMOSYNTHESIS WITH CAD (BILATERAL) HISTORY: Screening. COMPARISON: Prior studies dating back to 09/28/2007, most recently 10/31/2015. TECHNIQUE: Digital breast tomosynthesis was performed in CC and MLO projections. Reconstructed 2-D C-views generated from the tomosynthesis images. Images interpreted in conjunction with R-2 Image Traffic Recorder computer-aided detection (CAD). FINDINGS: BREAST DENSITY: There are scattered fibroglandular densities. There are no suspicious masses, suspicious areas of architectural distortion or suspicious clusters of microcalcifications. Stable scattered bilateral benign microcalcifications. Procedure Note Kirstin Joiner MD - 07/26/2018 BI MAMMOGRAM SCREENING WITH TOMOSYNTHESIS WITH CAD (BILATERAL) HISTORY: Screening. COMPARISON: Prior studies dating back to 09/28/2007, most gcrxbdus57/04/2016. TECHNIQUE: Digital breast tomosynthesis was performed in CC and MLOprojections. Reconstructed 2-D C-views generated from the tomosynthesisimages. Images interpreted in conjunction with R-2 Image Checkercomputer-aided detection (CAD). FINDINGS: BREAST DENSITY: There are scattered fibroglandular densities. There are no suspicious masses, suspicious areas of architecturaldistortion or suspicious clusters of microcalcifications. Stable scattered bilateral benign microcalcifications. IMPRESSION: No mammographic evidence of malignancy. RECOMMENDED FOLLOWUP: Routine screening mammography is recommended, asclinically appropriate. The results will be sent to the patient. BI-RADS CATEGORY: 2 - Benign finding. BREAST DENSITY: There are scattered fibroglandular densities. POS - [id number] Nga Charles WRIST LINER IMG MG EXAMS Final Res ult documented in this encounter Visit Diagnoses Diagnosis Breast screening Breast screening, unspecified Breast screening Breast screening, unspecified documented in this encounter Additional Health Concerns Infection Onset Date Last Indicated Resolved Time CoV-Risk Comment:Per Ambulatory Triage Form 03/17/2021 03/19/202103/29 1:22 AM EST documented as of this encounter Care Teams Water/Wastewater Engineer Relationship Specialty Start Date End Date Jaileen Sebastian MD [address] [place] [address] [email or web address] PCP - General Internal Medicine 09/08/17 08/04/18 Nga Charles CNP [address] [place] [address] [email or web address] PCP - General Family Medicine 08/05/18 Jailene Sebastian MD [address] [place] [address] [email or web address] Internal Medicine 08/05/18 documented as of this encounter Additional Source Comments The information contained in this document represents components of the legal health record. It is not the complete legal health record.[facility]
--- OUTSIDE RECORDS SUMMARY | 2024-12-27 12:04 | XMS_ITS | Encounter Summary ---
Author Organization [facility] Address [address] [place] [address] [place] [address] Phone Care Team Providers Care Testing Machine Operator Name Role Phone Nga Charles CNP Primary Care Provider [phone] Jailene Sebastian MD Unavailable [phone] Encounter Details Date Type Department Care Team (Late st Contact Info) Description 02/22/2019 Ancillary Orders [facility], -[address] [address] Nga Charles CNP [address] [place] [address] [email or web address] Left foot pain; Left shoulder pain, unspecified chronicity Social History Tobacco Use Types Packs/Day Years [...] documented as of this encounter Results * XR SHOULDER 2 VIEWS (LEFT) (02/22/2019 1:17 PM EST) Anatomical Region Laterality Modality Shoulder Left Radiographic Divya ging 02/22/2019 1:20 PM EST Impressions 02/22/2019 1:22 PM EST Moderate AC joint osteoarthritis. Mild lower cervical spine facet arthropathy. POS - [id number] Narrative 02/22/2019 1:22 PM EST HISTORY: As above. Pain. No trauma. COMPARISON: None. LEFT SHOULDER RADIOGRAPH FINDINGS: Four views obtained. No acute fracture or malalignment. Moderate acromioclavicular joint space narrowing and small spurs. Glenohumeral joint space is maintained. Lower cervical spine facet arthropathy. No bone lesions. No rotator cuff calcifications. Imaged left lung is clear. Procedure Note Marty Santiago MD - 02/22/2019 HISTORY: As above. Pain. No trauma. COMPARISON: None. LEFT SHOULDER RADIOGRAPH FINDINGS: Four views obtained. No acute fracture or malalignment. Moderateacromioclavicular joint space narrowing and small spurs. Glenohumeraljoint space is maintained. Lower cervical spine facet arthropathy. [place]one lesions. No rotator cuff calcifications. Imaged left lung isclear. IMPRESSION: Moderate AC joint osteoarthritis. Mild lower cervical spine facetarthropathy. POS - [id number] Nga Charles NURSE EMERGENCY IMG XR UPPER EXTREMITY Fi nal Result * XR FOOT 3 OR MORE VIEWS (LEFT) (02/22/2019 1:15 PM EST) Anatomical Region Laterality Modality Foot Left Radiographic Divya ging 02/22/2019 1:17 PM EST Impressions 02/22/2019 1:20 PM EST 1. Calcaneal enthesopathy. 2. Mild hallux valgus deformity and mild first MTP joint osteoarthritis. Degenerative spurring as above. POS - [id number] Narrative 02/22/2019 1:20 PM EST HISTORY: As above. Pain. No trauma. COMPARISON: None. LEFT FOOT RADIOGRAPH FINDINGS: Three views obtained. No acute fracture or malalignment. Mild hallux valgus deformity with mild first MTP joint space narrowing and small spurs. Hammertoe deformities. Large retrocalcaneal and small plantar calcaneal spurs. Moderate size medial first distal phalanx base spur and small spurs at the bases of the second through fifth distal phalanges. No destructive bone lesions or erosions. No soft tissue swelling. No radiopaque foreign bodies. Procedure Note Marty Santiago MD - 02/22/2019 HISTORY: As above. Pain. No trauma. COMPARISON: None. LEFT FOOT RADIOGRAPH FINDINGS: Three views obtained. No acute fracture or malalignment. Mild halluxvalgus deformity with mild first MTP joint space narrowing and smallspurs. Hammertoe deformities. Large retrocalcaneal and small plantarcalcaneal spurs. Moderate size medial first distal phalanx base spur andsmall spurs at the bases of the second through fifth distal phalanges. Nodestructive bone lesions or erosions. No soft tissue swelling. Noradiopaque foreign bodies. IMPRESSION: 1. Calcaneal enthesopathy. 2. Mild hallux valgus deformity and mild first MTP joint osteoarthritis.Degenerative spurring as above. POS - [id number] Nga Charles CNP IMG XR LOWER EXTREMITY Fi nal Result documented in this encounter Visit Diagnoses Diagnosis Left foot pain Pain in soft tissues of limb Left shoulder pain, unspecified chronicity Left foot pain Pain in soft tissues of limb Left shoulder pain, unspecified chronicity documented in this encounter Additional Health Concerns Infection Onset Date Last Indicated Resolved Time CoV-Risk Comment:Per Ambulatory Triage Form 03/17/2021 03/19/202103/29 1:22 AM EST documented as of this encounter Care Teams Testing Machine Operator Relationship Specialty Start Date End Date Nga Charles CNP [address] [place] [address] [phone] (Work) [email or web address] PCP - General Family Medicine 08/05/18 Jailene Sebastian MD [address] [place] [address] [email or web address] Internal Medicine 08/05/18 documented as of this encounter Additional Source Comments The information contained in this document represents components of the legal health record. It is not the complete legal health record.[facility]
--- OUTSIDE RECORDS SUMMARY | 2024-12-27 12:04 | XMS_ITS | Patient Health Record ---
Author Organization [facility] Address [address] [facility] [address] [place] [phone] Care Team Providers Care Senior Solutions Workflow Consultant Name Role Phone Jailene Sebastian Primary Care Provider Bharat Wharton Jr Unavailable [phone] Allergies Allergen (clinical drug ingredient) Drug/Non Drug Allergy documented on EMR Reaction Allergy Type Onset Date Status colistimethate colomycin (uncoded) Unknown Allergy Active prince green peppers (uncoded) Unknown Allergy Active wool (uncoded) Unknown Allergy Activ e latax (uncoded) hives Allergy Acti ve Substance with sulfonamide structure and antibacterial mechanism of action (substance) Sulfa Antibiotics anaphylaxis Drug Allergy Active neomycin Neomycin Unknown Drug Allergy Active Mold Unknown Allergy Active Dust Mites Unknown Allergy Active Reason For Referral Referring Provider First Name Jailene Referring Provider Last Name Jaz Referring Provider Speciality Internal M edicine Referred Organization [facility] Referred Provider Bharat Simmons Jr Referred Address [address] [facility], [facility],[place],[address], Referred Provider Specialty Gastroentero logy General Notes Sarah Harvey 2024 12:00:15 PM >requested a harsh referral from Dr. Jailene Sebastian for visit with Dr Simmons on [phone] Referral Priority Routine Medications Medication SIG (Take, Route, Frequency, Duration) Notes Start Date End Date Status Betamethasone Dipropionate 0.05 % APPLY TO AFFECTED AREA EXTERNALLY ONCE DAILY FOR 14 DAYS External for 14 Active Clobetasol Propionate 0.05 % 1 application Externally Twice a day for 10 day(s) 06/17/2023 Active Omeprazole 20 MG 1 capsule 30 minutes before morning meal Orally Once a day for 30 day(s) 02/26/2022 Active amLODIPine Besylate 2.5 MG Oral for 90 Active Estradiol 0.1 MG/GM Vaginal for 112 Active Vitamin C Drops 60 MG 1 lozenge Mouth/Th roat Once a day for 30 day(s) 06/17/2023 Active amLODIPine Besylate 2.5 MG Oral for 90 Active tylenol 1 tab Oral for 14 days 06/17/2023 Active Lidocaine 5 % APPLY TOPICALLY 3 TI MES DAILY External for 10 Active Tylenol Active Vitamin D-3 25 MCG (1000 UT) 1 capsule Orally Once a day for 30 day(s) 06/17/2023 Active Vitamin C 500 MG as directed Orally Active Cetirizine HCl 10 MG 1 tablet Orally Onc e a day for 30 day(s) 06/17/2023 Active Calcium Carbonate Antacid 500 MG 1 tablet Orally Once a day for 30 day(s) 06/17/2023 Active Nitroglycerin Not-Ta christina Airborne - as directed Orally Active Preparation H 0.25-88.44 % as directed Rectal 06/17/2023 Active PreserVision AREDS 2 - as directed Orally Active Loperamide HCl 2 MG 1 capsule as needed Orally Four times a day 06/17/2023 Active Ferrous Fumarate 325 (106 Fe) MG 1 tablet Orally Three times a Week for 30 day(s) 06/17/2023 Active Super B Complex/Vitamin C - as directed Orally 06/17/2023 Active Preparation H Active Cetirizine HCl 10 MG 1 tablet Orally prn Active Loperamide HCl 2 MG 1 capsule as needed Orally prn Active Super B Complex/C Ac tive Clobetasol Propionate Active Vitamin D3 50 MCG (2000 UT) 1 capsule Orally Once a day for 30 day(s) Active Ferrous Sulfate 325 (65 Fe) MG 1 tablet Orally Once a day for 30 day(s) Active Black Elderberry Act boyd Fexofenadine HCl 180 MG 1 tablet Orally Once a day/ prn Active Vitamin C Drops Acti ve Immunizations Vaccine Route Administration Date Status Comme nts Influenza Unknown 02/18/2022 Administered Social History Tobacco Use: Social History Observation Description Date Details (start date - stop date) Former Smoker NA - NA Tobacco Use/Smoking Question Answer Notes Patient is a former smoker How long has it been since you last smoked? > 10 years Alcohol Screen Question Answer Notes Did you have a drink contain ing alcohol in the past year? Yes How often did you have a dri nk containing alcohol in the past year? Never (0 point) How many drinks did you have on a typical day when you were drinking in the past year? 1 or 2 drinks (0 point) How often did you have 6 or more drinks on one occasion in the past year? Never (0 point) Points 0 Interpretation Negative Section Notes: tob 25-30 years ago tob 25-30 years ago tob 25-30 years ago Problems Problem Type SNOMED Code ICD Code Onset Dates Problem Status W/U Status Risk Notes Problem Screening for malignant neoplasm of colon (768012648) Encounter for screening for malignant neoplasm of colon (Z12.11) Active confirmed Problem 190054338 Abnormal upper gastrointestinal barium series (R93.3) Active confirmed Problem Gastroesophageal reflux disease (152309011) GERD (gastroesophageal reflux disease) (K21.9) Active confirmed Problem 40889907 Chest pain, unspecified type (R07.9) Active confirmed Vital Signs Blood pressure diastolic 77 mm Hg 09/21/2024 Height 64 in 09/21/2024 Blood pressure systolic 111 mm Hg 09/21/2024 Weight 166 lbs 09/21/2024 BMI 28.49 kg/m2 09/21/2024 Encounters Encounter Location Date Provider Diagnosis [facility] [address] [facility] [address] [place] [phone] 09/21/2024 Bharat Simmons Jr Encounter for screening for malignant neoplasm of colon Z12.11 ; GERD (gastroesophageal reflux disease) K21.9 and Change in bowel movement R19.4 [facility] [address] [facility] [address] [place] [phone] 06/15/2024 Bharat Simmons Jr Assessments Encounter Date Diagnosis (ICD Code) Assessment Notes Treatment Notes Treatment Clinical Notes Section Notes 09/21/2024 Encounter for screening for malignant neoplasm of colon (ICD-10 - Z12.11) We discussed gastroesophageal reflux disease today. We discussed diet, lifestyle modifications, and weight management. She will continue her present regimen. She is due for follow-up colonoscopy. This will be arranged. She understands risks and benefits and agrees to proceed. For her irregular bowel movements, she can continue to use loperamide and fiber supplementation. 09/21/2024 GERD (gastroesopha geal reflux disease) (ICD-10 - K21.9) We discussed gastroesophageal reflux disease today. We discussed diet, lifestyle modifications, and weight management. She will continue her present regimen. She is due for follow-up colonoscopy. This will be arranged. She understands risks and benefits and agrees to proceed. For her irregular bowel movements, she can continue to use loperamide and fiber supplementation. 09/21/2024 Change in bowel movement (ICD-10 - R19.4) We discussed gastroesophageal reflux disease today. We discussed diet, lifestyle modifications, and weight management. She will continue her present regimen. She is due for follow-up colonoscopy. This will be arranged. She understands risks and benefits and agrees to proceed. For her irregular bowel movements, she can continue to use loperamide and fiber supplementation. Plan Of Treatment Future Test Test Name Order Date UPPER GI ENDOSCOPY 02/26/2022 UPPER GI ENDOSCOPY 06/17/2023 COLONOSCOPY 09/21/2024 Next Appt Details Provider Name:Bharat brooks , 02/13/2025 09:20:00 AM, [address] [place] [address] , [place], [place], [id number], Insurance Providers Payer Name Payer Address Payer Phone Subscriber Number Group Number Insured Name Patient Relationship to Insured Coverage Start Date Coverage End Date [facility] [address] AMBER Boles [phone] [id number] MOREL Self - patient is the insured Medical (General) History Medical History History ICD Code Chronic kidney disease Stage IIIb asthma Bronchitis/pneumonia hypertension urinary incontinence Tachycardia EGD 04/20, no H. pylori or Velasco's esop hagus. Surgical History Surgery Date(Month/Year) Uterine prolapse/total hysterectomy 01/27 Tubal ligation mole removal retinal detachment
--- OUTSIDE RECORDS SUMMARY | 2024-12-27 12:04 | XMS_ITS | Encounter Summary ---
Author Organization [facility] Address [address] [place] [address] [place] [address] Phone Care Team Providers Care Attendant Lodging Facilities Name Role Phone Nga Charles CNP Primary Care Provider [phone] Jailene Sebastian MD Unavailable [phone] Encounter Details Date Type Department Care Team (Latest Contact Info) Description 04/10/2021 Transcribe Orders Virtual Department [address] [place] [address] Nga Charles CNP [address] [place] [address] [email or web address] Chest tightness (Primary Dx) Social History Tobacco Use Types [...] as of this encounter Results * XR CHEST PA AND LATERAL 2 VIEWS (04/11/2021 4:28 PM EST) Anatomical Region Laterality Modality Chest Computed Radiogr aphy 04/11/2021 4:42 PM EST Impressions 04/11/2021 4:43 PM EST No acute chest disease. Narrative 04/11/2021 4:43 PM EST COMPARISON: 10/15/2008. CHEST RADIOGRAPH FINDINGS: Views: 2. Lines/Tubes/Devices: None. Heart and Mediastinum: Normal. Lungs: Stable hyperinflation. Clear. Pleura: Clear. Bones: Unremarkable. Soft Tissues: Unremarkable. Procedure Note Yung Escobedo MD - 04/11/2021 COMPARISON: 10/15/2008. CHEST RADIOGRAPH FINDINGS: Views: 2. Lines/Tubes/Devices: None. Heart and Mediastinum: Normal. Lungs: Stable hyperinflation. Clear. Pleura: Clear. Bones: Unremarkable. Soft Tissues: Unremarkable. IMPRESSION: No acute chest disease. Nga Charles OUTSIDE PLANT SUPERVISOR IMG XR CHEST Final Res ult documented in this encounter Visit Diagnoses Diagnosis Chest tightness- Primary Other chest pain Chest tightness Other chest pain documented in this encounter Care Teams Attendant Lodging Facilities Relationship Specialty Start Date End Date Nga Charles CNP [address] [place] [address] [email or web address] PCP - General Family Medicine 08/05/18 Jailene Sebastian MD [address] [place] [address] [email or web address] Internal Medicine 08/05/18 documented as of this encounter Additional Source Comments The information contained in this document represents components of the legal health record. It is not the complete legal health record.[facility]
--- OUTSIDE RECORDS SUMMARY | 2024-12-27 12:04 | XMS_ITS | Encounter Summary ---
Author Organization [employer] Address [address] [place] [address] [address] [place] [address] Care Team Providers Care Guest Services Associate Name Role Phone Nga Charles CNP Primary Care Provider [phone] Encounter Details Date Type Department Care Team (Latest Contact Info) Description 02/02/2019 Abstract [facility] CONVERSIONS Dental, Provider, DDS Social [...] Description 12/27/2024 2:30 PM EDT Office Visit [facility] [address] [place] [address] Libby Malik MD [address] [place] [address] 02/06/2025 3:00 PM EST Office Visit [facility] [address] [place] [address] Nga Charles CNP [address] [place] [address] 02/28/2025 2:00 PM EST Office Visit [facility] DENT[facility] [address] [place] [address] Karen Lee documented as of this encounter Visit Diagnoses Not on filedocumented in this encounter Care Teams Guest Services Associate Relationship Specialty Start Date End Date Nga Charles CNP [address] [place] [address] PCP - General Family Medicine 04/10/22 documented as of this encounter
--- OUTSIDE RECORDS SUMMARY | 2024-12-27 12:04 | XMS_ITS | Clinical Summary ---
Author Organization [facility] Address [address] [place] [id number] Phone Care Team Providers Care Online Activist Name Role Phone Jailene Sebastian MD Primary Care Provider [phone] Allergies Active Allergy Reactions Criticality Noted Date Comments 2,4-D Dimethylamine 03/31/2022 Other reaction(s): sinusitis Capsicum Diarrhea 08/31/2017 [place] Colistimethate 03/31/2022 Other reaction(s): hives [place] Extract 06/17/2021 Dust Mite Extract 06/17/2021 Famotidine 06/17/2021 Inhaled Anticholinergic Agents 06/17/2021 Latex Itching Medium 03/27/2022 Mite (D. Farinae) 03/31/2022 Other reaction(s): stuffy nose, sneezing Molds & Smuts Other (see comments) 03/19/2022 Other reaction(s): Unknown Other reaction(s): Unknown Neomycin Other (see comments) 06/16/2021 Sulfa Antibiotics Other (see comments),Anaphylax is High 08/31/2017 Other reaction(s): Other (see comments) Medications Cholecalciferol (Vitamin D) 25 MCG (1000 UT) tablet Take by mouth Active Calcium Carbonate (CALCIUM-CARB 600 PO) Take by mouth Active fexofenadine (LD) 180 MG tablet Take 180 mg by mouth 1 (one) time each day prn Active loperamide (IMODIUM) 2 MG capsule Take 2 mg by mouth 4 (four) times a day if needed for diarrhea Active acetaminophen (TYLENOL) 325 MG tablet Take by mouth every 6 (six) hours if needed for mild pain Active omeprazole (PriLOSEC) [address] capsule Take 20 mg by mouth 1 (one) time each day Do not crush or chew. Active cetirizine (ZyrTEC) 10 MG chewable tablet Chew 10 mg 1 (one) time each day Active ferrous sulfate 325 (65 Fe) MG EC tablet Take 325 mg by mouth in the morning and 325 mg at noon and 325 mg in the evening. Take with meals. Do not crush, chew, or split. Active amLODIPine (NORVASC) 2.5 MG tablet Take 1 tablet (2.5 mg total) by mouth 1 (one) time each day 07/28/2024 Active Active Problems Problem Noted Date Diagnosed Date Rheumatic fever 03/31/2023 03/31/2023 Lichen sclerosus 03/31/2023 03/31/2023 Pura's thyroiditis 03/31/2023 03/31/19 24 Arthritis 03/31/2023 03/31/2023 Stage 3a chronic kidney disease 03/31/2023 Vitiligo 03/31/2022 03/30/2023 Visual impairment 03/31/2022 03/30/2023 Shoulder pain 03/31/2022 03/30/2023 Prolapse of vaginal wall 03/31/2022 024 Overweight 03/31/2022 03/30/2023 Lichen sclerosus et atrophicus of the vulva 05/202203/30/2023 H/O: thyroid disorder 03/31/2022 03/30/2023 Irritable bowel syndrome 03/31/2022 024 H/O: rheumatic fever 03/31/2022 03/30/2023 Glaucoma 03/31/2022 03/30/2023 Gastro-esophageal reflux disease without esophag itis 03/31/2022 03/30/2023 Decreased hearing 03/31/2022 03/30/2023 Allergic rhinitis 03/31/2022 03/30/2023 Chronic kidney disease stage 3 04/03/2021 Hypertensive disorder 04/03/2021 Immunizations Immunization Administration Dates Next Due Influenza Split 01/13/1995 Influenza Split High Dose Pr eservative Free IM 02/11/2022,04/16/2018 Influenza, MDCK, Quadrivalen t, with preservative 01/23/2019 Influenza, Unspecified 04/08/2021,2019,03/13/2013,02/17 MMR 07/20/2018 PPD Test 07/20/2003 Pneumococcal Polysaccharide 03/13/2013 TD Preservative Free 05/22/2022 Td 04/19/2000,02/04/1989 Tdap 08/21/2011 Zoster 03/29/2014 Family History Medical History Relation Comments Heart disease Father Diabetes Mother Heart disease Mother Relation Status Comments Father Mother Social History Tobacco Use Types Packs/Day Years Used Date Smoking Tobacco: Former Smokeless Tobacco: Never Tobacco Cessation:Counseling Given: Not Answered Alcohol Use Standard Drinks/Week Comments Yes 0 (1 standard drink = 0.6 oz pur e alcohol) socal Comments Unknown Sex and Gender Information Value Date Recorded Sex Assigned at Not on file Legal Sex Female 4:47 PM EST Gender Identity Not on file Sexual Orientation Not on file Last Filed Vital Signs Vital Sign Reading Time Taken Comments Blood Pressure 122/72 07/28/2024 11:19 AM EDT Pulse 73 07/28/2024 11:19 AM EDT Temperature - - Respiratory Rate - - Oxygen Saturation 96% 03/31/2023 1:35 PM EST Inhaled Oxygen Concentration - - Weight 76.8 kg (169 lb 6.4 oz) 07/28/2024 11:19 AM EDT Height 162.6 cm (5' 4 ) 04/09/2020 12:01 PM EST Body Mass Index 29.08 04/09/2020 12:01 PM EST Plan of Treatment Upcoming Encounters Date Type Department Care Team (Late st Contact Info) Description 08/02/2025 1:30 PM EDT Office Visit [facility] [address] [place] [address] Shawn Duffy MD [address] [phone] Health Maintenance Due Date Last Done Comments Influenza Vaccine (#1) 2024 2, 04/08/2021, 01/15/2020, Additional history exists Pneumococcal Vaccine: 50+ Years Completed 04/06/2023, 03/13/2013 Pneumococcal Vaccine: Peds (0 to 5 Years) and At-Risk Patients (6 to 49 Years) Discontinued 04/06/2023, 03/13/2013 Hepatitis B Vaccine Aged Out No longe r eligible based on patient's age to complete this topic Insurance [employer] Care Teams Online Activist Relationship Specialty Start Date End Date Jailene Sebastian MD [address] [place] [address] [place] [address] PCP - General Internal Medicine 07/28/24
--- OUTSIDE RECORDS SUMMARY | 2024-12-27 12:04 | XMS_ITS | Clinical Summary ---
Author Organization [employer] Address [address] [place] [address] 7[address] [place] [address] Care Team Providers Care Landscaping Manager Name Role Phone Elza Charlesndnilson HUTCHISON Primary Care Provider [phone] Allergies Active Allergy Reactions Criticality Noted Date Comments 2,4-D Dimethylamine Low 03/31/2022 Other reaction(s): sinusitis Capsicum Diarrhea Low 08/31/2017 [place] Colistimethate Hives Low 03/31/2022 Other reaction(s): hives Dust Mite Extract Low 06/17/2021 Mite (D. Farinae) Low 03/31/2022 Other reaction(s): stuffy nose, sneezing Famotidine Low 06/17/2021 Other reaction(s): headache Inhaled Anticholinergic Agents Low 06/17/2021 Latex Itching,Hives Medium 03/19/2022 Molds & Smuts Runny nose Low 03/19/2022 Other reaction(s): Unknown Neomycin Hives Low 08/31/2017 Other reaction(s): Other (see comments) ? Colymycin S Otic Other 04/20/2023 Other reaction(s): runny nose, eyes,sneezing Woool-hivesdust,dogs, cats,mold Other reaction(s): diarrhea, cramping cucumbers, prince peppers Other reaction(s): swollen,rash Sulfa Antibiotics Anaphylaxis High 08/31/2017 Other reaction(s): Other (see comments) Other reaction(s): Other (see comments) Lanolin Unknown 03/19/2022 Other reaction(s): Unknown Wound Dressing Adhesive Low 04/20/2023 Other reaction(s): skin tears Medications loperamide (Imodium) 2 MG capsule 1 capsule. prn Activ e acetaminophen (Tylenol) 500 MG tablet 2 tablets. PRN Activ e cetirizine (ZyrTEC) 10 MG tablet 1 tablet in the morning. As needed if brandy doesn't work in 24 hours . Active calcium carbonate (Tums) 500 MG chewable tablet 1 tablet. Acti ve SUPER B COMPLEX/C PO 60mg C, 25mg B1, 20mg B2, 5mg B6, 100mcg B12, 25 mg niacinamide, 400mcg folic acid, 1000mcg d-biotin, 5.5 mg mg d-Ca taking 2 to 3 times a week Active ferrous sulfate 325 (65 Fe) MG tablet 1 tablet. Twice a week Active phenylephrine 0.25% (Preparation H) 0.25-14-74.9 % ointment Preparation H Active BLACK ELDERBERRY PO Take 1,000 mg by mouth. Only when having a cold Active cholecalciferol (Vitamin D3) 25 MCG (1000 UT) tablet Take by mouth in the morning. Active clobetasol (Temovate) 0.05 % cream Apply topically 2 times daily. Active Ascorbic Acid (VITAMIN C DROPS MT) Use in the mouth or throat. As needed Active fexofenadine (Brandy) 180 MG tablet Take 180 mg by mouth in the morning. As needed Active lidocaine (Xylocaine) 5 % ointment Apply topically 3 times daily. 03/15/20 23 Active albuterol 108 (90 Base) MCG/ACT inhaler INHALE 2 PUFFS INTO THE LUNGS 4 TIMES A DAY NEEDED FOR WHEZING/SHORTN ESS OF BREATH 02/04/20 23 Active estradiol (Estrace) 0.1 MG/GM vaginal cream Insert 2 g into the vagina in the morning. Active omeprazole (PriLOSEC) [address] capsuleIndicati ons:Gastroesoph ageal reflux disease without esophagitis Take 1 capsule (20 mg) by mouth if needed each day (acid reflux, chest tightness). Do not crush or chew. 90 capsule 11/23/19 24 Active Additional Information Patient not taking.Reported on 11/29/2024 amLODIPine (Norvasc) 2.5 MG tabletIndicatio ns:Essential hypertension Take 1 tablet (2.5 mg) by mouth Once per day. 90 tablet 3 06/14/19 25 Active Multiple Vitamins-Minera ls (PRESERVISION AREDS 2 PO) Take by mouth. Act boyd amoxicillin (Amoxil) 500 MG capsule TAKE 4 CAPSULES BY MOUTH 1 HOUR PRIOR TO DENTAL PROCEDURE 12 capsule 3 12/07/19 25 Active amoxicillin (Amoxil) 500 MG capsule TAKE 4 CAPSULES BY MOUTH 1 HOUR PRIOR TO DENTAL PROCEDURE 12 capsule 3 07/05/19 24 2024 Discontinued(R eorder (will not trigger notification to Pharmacy)) doxycycline (Vibramycin) 100 MG capsuleIndicati ons:Other fatigue,Chills, Positive anaplasmosis titer Take 1 capsule (100 mg) by mouth 2 times daily for 10 days. Take with at least 8 ounces (large glass) of water, do not lie down for 30 minutes after 20 capsule 12/05/19 25 2024 Active Problems Problem Noted Date Diagnosed Date Arthritis 03/31/2023 04/03/2023 Lichen sclerosus 03/31/2023 04/03/2023 Chronic kidney disease, stage 3a (CMS/HCC) 03/31 Overweight 03/31/2022 Decreased hearing 03/31/2022 Vitiligo 03/31/2022 Lichen sclerosus et atrophicus of the vulva 05/2022 Gastroesophageal reflux disease without esophagi tis 03/31/2022 Non-seasonal allergic rhinitis 03/31/2022 Irritable bowel syndrome wit h both constipation and diarrhea 03/31/2022 Visual impairment 03/31/2022 Prolapse of vaginal wall 03/31/2022 Glaucoma 03/31/2022 History of rheumatic fever 03/31/2022 History of Pura thyroiditis 03/31/2022 Essential hypertension 04/03/2021 Atypical chest pain 09/13/2018 Abnormal electrocardiogram 05/26/2018 Palpitations 05/23/2018 Resolved Problems Problem Noted Date Diagnosed Date Resolved Date Shoulder pain 03/31/2022 04/03/2023 Pain in left shoulder 03/31/20222023 Pain in right shoulder 03/31/202204/03 Stage 3 chronic kidney disease (CMS/HCC) 04/03/2021 04/03/2023 Encounters Date Type Department Care Team Description 12/08/[address] [address] Nga Charles CNP verify infection for city 12/06/[address] [place] [address] Yuliana Burroughs LPN 11/30/2024 Results Follow-Up [address] [place] [address] Libby Malik MD Comprehensive Metabolic Panel [[id number]], CBC auto differential, TSH with Reflex to Free T4 [[id number]], Additional followed-up results: 2 11/29/2024 11:30 AM EDT Office Visit [address] [place] [address] Libby Malik MD Chills (Primary Dx); Other fatigue; Left shoulder pain, unspecified chronicity; Lump of skin of back; Leg pain, left 10/11/[address] [address] Nga Charles CNP 10/11/2024 Results Follow-Up [address] [place] [address] Nga Charles CNP XR Knee 1-2 Views Left 10/11/2024 Orders Only [address] [place] [address] Nga Charles CNP 10/10/2024 11:45 AM EDT Office Visit [address] [address] Nga Charles CNP Leg swelling (Primary Dx); Posterior left knee pain; Family history of parkinsonism; Twitching 10/10/2024 Travel 10/10/[address] [address] Nga Charles CNP DVT; Leg Swelling; Thrombophilia from Last 3 Months Immunizations Immunization Administration Dates Next Due INFLUENZA INJECTABLE QUADRIV ALANT CCIIV4 MDCK Multi-dose vial 01/23/2019 Influenza High-dose Quadriva lent Preservative Free 04/20/2023 Influenza, High Dose Seasona l, Preservative Free 02/11/2022,04/16/2018 Influenza, IIV3, injectable 04/08/2021, 0 Influenza, Split (incl. benny fied surface antigen) 01/13/1995 Influenza, Unspecified 04/08/2021,2019,03/13/2013,02/17 MMR 07/20/2018 Moderna Covid-19 Vaccine 12+ 04/20/2023 PPD Test 07/20/2003 Pneumococcal Conjugate PCV 20 04/06/2023 Pneumococcal Polysaccharide PPSV23 03/13/2013 TD (adult), 2 Lf tetanus tox oid, preservative free, adsorbed 04/19/2000,02/04/1989 Td (adult), 5 Lf tetanus tox oid, preservative free, adsorbed 05/22/2022 Tdap 08/21/2011 Zoster, live 03/29/2014 Family History Medical History Relation Name Comments No Known Problems Brother Half broth er of cancer 02/2020 Coronary artery disease Father Brad Aldana Heart disease Father Brad Aldana Vision loss Father's Sister 1 Maryuri Vision loss Father's Sister 2 Fariba Alcohol abuse Mother Anika Alexis Arthritis Mother Anika Alexis Coronary artery disease Mother Anika Alexis Depression Mother Anika Alexis Diabetes Mother Anika Alexis Heart disease Mother Anika Alexis Hypertension Mother Anika Alexis Parkinsonism Mother Anika Alexis Alcohol abuse Mother's Brother 1 [place] Alcohol abuse Mother's Brother 2 N[place] Alcohol abuse Mother's Brother 3 Servando Breast cancer Other 1 PATERNAL AUNT Retinal detachment Other 1 PATERNAL AUNT Parkinsonism Other 2 MATERNAL UNCLE Relation Name Status Comments Brother Father Brad Aldana Father's Sister 1 Maryuri Alive Father's Sister 2 Fariba Alive Mother Anika Alexis Mother's Brother 1 Keyon Alive Mother's Brother 2 Nico Alive Mother's Brother 3 Servando Alive Other 1 PATERNAL AUNT Other 2 MATERNAL UNCLE Social History Tobacco Use Types Packs/Day Years Used Date Smoking Tobacco: Former Cigarettes Q uit: 02/27/1992 Smokeless Tobacco: Never Tobacco Cessation:Counseling Given: Not [...] Pests such as bugs, ants, or mice;Lead [place] or Pipes;Mold 10/10/2024 Food Insecurity Answer Date [...] 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 Not on file Not on file Last Filed Vital Signs Vital Sign Reading Time Taken Comments Blood Pressure 128/82 11/29/2024 11:44 AM EDT Pulse 81 11/29/2024 11:44 AM EDT Temperature 36.3 C (97.3 F) 11/29/2024 11:44 AM EDT Respiratory Rate 18 02/15/2024 2:42 PM EST Oxygen Saturation 96% 11/29/2024 11:44 AM EDT Inhaled Oxygen Concentration - - Weight 77.1 kg (170 lb) 11/29/2024 11:44 AM EDT Height 162.6 cm (5' 4 ) 11/29/2024 11:44 AM EDT Body Mass Index 29.18 11/29/2024 11:44 AM EDT Plan of Treatment Upcoming Encounters Date Type Department Care Team (Late st Contact Info) Description 12/27/2024 2:30 PM EDT Office Visit [facility] [address] [place] [address] Libby Malik MD [address] [place] [address] 02/06/2025 3:00 PM EST Office Visit [facility] [address] [place] [address] Nga Charles, FOSTER [address] [place] [address] 02/28/2025 2:00 PM EST Office Visit [facility] DENT[facility] [address] [place] [address] Karen Lee Health Maintenance Due Date Last Done Comments Hepatitis C Screening 11/04/1965 RSV Patients and Patients Aged 60 years or older (1 - 1-dose 75+ series) 11/04/2022 Dental X-Ray: Full Mouth 07/04/2024 07/03/2021, 09/2015 COVID-19 Vaccine ( season) 2024 04/20/2023, 04/18/2021, 07/11/2020, Additional history exists Influenza Vaccine (#1) 2024 , 02/18/2022, 02/11/2022, Additional history exists Dental Oral Exam 02/03/2025 08/02/2024, , 05/22/2022, Additional history exists Dental Prophylaxis 02/03/2025 08/02/2024, 0 10/07/2023, 03/10/2023, Additional history exists Zoster Vaccines (3 of 3) 02/09/2025 12/15/2024, 03/2014 Dental X-Ray: Bitewings 08/03/2025 08/03/19, 03/10/2023, 07/03/2021, Additional history exists Alcohol/Substance Use Screening 10/10/2025 10/10/2024 Depression Screening 10/10/2025 10/10/2024, 10/11/19 SDOH Screening 10/10/2025 10/10/2024 Tobacco Screening 10/10/2025 10/10/2024 Lipid Panel 11/24/2028 11/25/2023, 05/28, 06/16/2021 DTaP/Tdap/Td Vaccines (3 - Td or Tdap) 05/22/2032 05/22/2022, 08/21/2011, 04/19/2000, Additional history exists Colonoscopy Discontinued 11/19/2011, 10/28, 12/08/1999 Colorectal Cancer Screening Discontinued Pneumococcal Vaccine: 50+ Years Completed 04/06/2023, 03/13/2013 CT Colonography Discontinued FIT DNA/Cologuard Discontinued FIT Discontinued FOBT Discontinued HIB Vaccines Aged Out No longer eligi ble based on patient's age to complete this topic HPV Vaccines Aged Out No longer eligi ble based on patient's age to complete this topic Hepatitis A Vaccines Aged Out No long er eligible based on patient's age to complete this topic Hepatitis B Vaccines Aged Out No long er eligible based on patient's age to complete this topic IPV Vaccines Aged Out No longer eligi ble based on patient's age to complete this topic Meningococcal B Vaccine Aged Out No l onger eligible based on patient's age to complete this topic Meningococcal Vaccine Aged Out No danny maximino eligible based on patient's age to complete this topic RSV under 20 months Aged Out No longe r eligible based on patient's age to complete this topic Rotavirus Vaccines Aged Out No longer eligible based on patient's age to complete this topic Sigmoidoscopy Discontinued Procedures Procedure Name Priority Date/Time Associated Diagnosis Comments XR SHOULDER 2+ VIEWS LEFT Routine 12/19/2024 Left shoulder pain, unspecified chronicity TICKBORNE DISEASE ANTIBODY PROFILE, SERUM Routine 11/29/2024 12:42 PM EDT Other fatigue TSH W/REFLEX TO FT4 Routine 11/29/2024 1 2:42 PM EDT Other fatigue COMPREHENSIVE METABOLIC PANEL Routine 11/29/2024 12:42 PM EDT Other fatigue CBC WITH AUTO DIFFERENTIAL Routine 11/29/2024 12:42 PM EDT Other fatigue XR KNEE 1-2 VIEWS LEFT Routine 10:24 AM EDT US DOPPLER EXT LOWER VENOUS LEFT Routine 10/11/2024 9:19 AM EDT XR KNEE 4+ VIEWS LEFT Routine 10/11/2024 Leg swelling Posterior left knee pain Full PROPHYLAXIS - ADULT Routine 08/02/2024 3:00 PM EDT BITEWINGS - 4 RADIOGRAPHIC IMAGES Routine 08/02/2024 3:00 PM EDT PERIODIC ORAL EVALUATION - ESTABLISHED PATIENT Routine 08/02/2024 3:00 PM EDT LIPID PROFILE WITH NON-HDL CHOLESTEROL Routine 11/25/2023 12:16 PM EDT INTRAORAL - COMPLETE SERIES OF RADIOGRAPHIC IMAGES Routine 07/03/2021 12:00 AM EDT HM COLONOSCOPY Routine 11/19/2011 from Last 3 Months or Most Recently Relevant to Health Maintenance Results * XR Shoulder 2+ Views Left (12/19/2024) Anatomical Region Laterality Modality Upper Extremities, Shoulder Left Radi ographic Imaging Libby Malik MD IMG XR PROCEDURES Final Result * (ABNORMAL) Tickborne Disease Antibody Profile, Serum (11/29/2024 12:42 PM EDT) Pathologist [facility], [place] Lyme Antibody Screen Negative Negative [facility] Comment: Lyme antibodies not detected. Reflex testing is not indicated. No laboratory evidence of infection with B. burgdorferi (Lyme disease). Negative results may occur in patients recently infected (less than or equal to 14 days) with B. burgdorferi. If recent infection is suspected, repeat testing on a new sample collected in 7 to 14 days is recommended. Babesia microti Antibody IgG <1:10 Neg:<1:10 [facility] 2 E.chaffeensis Antibody IgG Negative Neg:<1:64 [facility] 2 A. phagocytophilum Antibody (IgG) 1:128(H) Neg:<1:64 [facility] 2 Result Comments: [facility] Comment: Antibody titers may be negative in the first 7-10 days of illness. A four-fold rise in IgG antibody titers for Babesia microti, Anaplasma phagocytophilum, and/or Ehrlichia chaffeensis in paired samples (acute and convalescent) supports the diagnosis of babesiosis, anaplasmosis, and/or ehrlichiosis, respectively. Blood Venous blood specimen / Unknown 11/29/2024 12:42 PM EDT 11/29/2024 Narrative [facility] - 12/04/2024 4:05 PM EDT Test(s) [id number]-Dbidvap microti IgG was developed and its performance characteristics determined by [facility]. It has not been cleared or approved by the Food and Drug Administration. Resulting Agency Comment Performed at: 01 - [address] [id number] [address] Recorder: Nimisha Fuchs MD, Phone: [phone] Performed at: 02 - [facility] [id number] [address] Recorder: Geoffrey Jain MD, Phone: [phone] us Libby Malik MD LAB BLOOD ORDERABLES Final Resul t [facility] * TSH with Reflex to Free T4 [[id number]] (11/29/2024 12:42 PM EDT) Pathologist [facility] [place] TSH 1.660 0.450 - 4.500 uIU/mL [facility] 1 Blood Venous blood specimen / Unknown 11/29/2024 12:42 PM EDT 11/29/2024 Narrative Resulting Agency Comment Performed at: 01 - [facility] [address] [id number] [address] Recorder: Nimisha Fuchs MD, Phone: [phone] us Libby Malik MD LAB BLOOD ORDERABLES Final Resul t [facility] 1 * CBC auto differential (11/29/2024 12:42 PM EDT) [facility] White Blood Cell Count 7.6 3.4 - 10.8 x10E3/uL [facility] 1 Red Blood Cell Count 4.26 3.77 - 5.28 x10E6/uL [facility] 1 Hemoglobin 12.8 11.1 - 15.9 g/dL [facility] 1 Hematocrit 38.6 34.0 - 46.6 % [facility] 1 MCV 91 79 - 97 fL [facility] 1 MCH 30.0 26.6 - 33.0 pg [facility] 1 MCHC 33.2 31.5 - 35.7 g/dL [facility] 1 RDW 12.9 11.7 - 15.4 % [facility] 1 Platelet Count 365 150 - 450 x10E3/uL [facility] 1 Neutrophils 62 Not Estab. % [facility] 1 Lymphocytes 25 Not Estab. % [facility] 1 Monocytes 9 Not Estab. % [facility] 1 Eosinophils 3 Not Estab. % [facility] 1 Basophils 1 Not Estab. % [facility] 1 Absolute Neutrophils 4.7 1.4 - 7.0 x10E3/uL [facility] 1 Absolute Lymphocytes 1.9 0.7 - 3.1 x10E3/uL [facility] 1 Absolute Monocytes 0.7 0.1 - 0.9 x10E3/uL [facility] 1 Absolute Eosinophils 0.3 0.0 - 0.4 x10E3/uL [facility] 1 Absolute Basophils 0.0 0.0 - 0.2 x10E3/uL [facility] 1 Immature Granulocytes 0 Not Estab. % [facility] 1 Immature Grans (Abs) 0.0 0.0 - 0.1 x10E3/uL [facility] 1 Blood Venous blood specimen / Unknown 11/29/2024 12:42 PM EDT 11/29/2024 Narrative Resulting Agency Comment Performed at: 01 - [facility] [address] [id number] [address] Recorder: Nimisha Fuchs MD, Phone: [phone] Libby Malik MD LAB BLOOD ORDERABLES Final Resul t [facility] 1 * (ABNORMAL) Comprehensive Metabolic Panel [[id number]] (11/29/2024 12:42 PM EDT) Glucose 89 70 - 99 mg/dL [facility] 1 Urea Nitrogen (BUN) 21 8 - 27 mg/dL [facility] 1 Creatinine, Serum 1.06(H) 0.57 - 1.00 mg/dL [facility] 1 eGFR 54(L) >59 mL/min/1.7 3 [facility] 1 BUN/Creatinine Ratio 20 12 - 28 [facility] 1 Sodium 140 134 - 144 mmol/L [facility] 1 Potassium 4.9 3.5 - 5.2 mmol/L [facility] 1 Chloride 104 96 - 106 mmol/L [facility] 1 Anion Gap 11.0 10.0 - 18.0 mmol/L [facility] 1 Carbon Dioxide 25 20 - 29 mmol/L [facility] 1 Calcium 9.5 8.7 - 10.3 mg/dL [facility] 1 Protein, Total 6.9 6.0 - 8.5 g/dL [facility] 1 Albumin 4.1 3.8 - 4.8 g/dL [facility] 1 Globulin 2.8 1.5 - 4.5 g/dL [facility] 1 Bilirubin, Total 0.3 0.0 - 1.2 mg/dL [facility] 1 Alkaline Phosphatase 116 44 - 121 IU/L [facility] 1 Comment: Effective December 11, 2024 Alkaline Phosphatase reference interval will be changing to: Age Male Female 0 - 5 days 47 - 127 47 - 127 6 - 10 days 29 - 242 29 - 242 11 - 20 days 109 - 357 109 - 357 21 - 30 days 94 - 494 94 - 494 1 - 2 months 149 - 539 149 - 539 3 - 6 months 131 - 452 131 - 452 7 - 11 months 117 - 401 117 - 401 12 months - 6 years 158 - 369 158 - 369 7 - 12 years 150 - 409 150 - 409 13 years 156 - 435 78 - 227 14 years 114 - 375 64 - 161 15 years 88 - 279 56 - 134 16 years 74 - 207 51 - 121 17 years 63 - 161 47 - 113 18 - 20 years 51 - 125 42 - 106 21 - 50 years 47 - 123 41 - 116 51 - 80 years 49 - 135 51 - 125 >80 years 48 - 129 48 - 129 AST 15 0 - 40 IU/L [facility] 1 ALT 11 0 - 32 IU/L [facility] 1 Blood Venous blood specimen / Unknown 11/29/2024 12:42 PM EDT 11/29/2024 Narrative Resulting Agency Comment Performed at: 01 - [facility] [address] [id number] [address] Recorder: Nimisha Fuchs MD, Phone: [phone] Libby Malik MD LAB BLOOD ORDERABLES Final Resul t [facility] * XR Knee 1-2 Views Left (10/11/2024 10:24 AM EDT) Anatomical Region Laterality Modality Lower Extremities, Knee Left Radiogra phic Imaging 10/11/2024 10:2 4 AM EDT Narrative 10/11/2024 10:45 AM EDT Knee 1 or 2 Views Left, 2 views Reason: pain COMPARISON: None. FINDINGS: No bone lesions or fractures. There is a small spur on the superior aspect of the patella. No arthritic changes. No osteochondral defects or intra-articular loose bodies. There is a tiny suprapatellar effusion IMPRESSION: A small effusion. No significant bony abnormality. If symptoms persist, an MRI can be considered. WSN: [id number] Ordering Physician: Nga Charles Dictated By: Lewis Alva MD Dictated Date/Time: 10/11/24 10:42 a Reviewed By: Lewis Alva MD Signed By: Lewis Alva MD Signed Date/Time: 10/11/24 10:42 am Transcribed By: MATTHEW Transcribed Date/Time: 10/11/24 10:37 am Procedure Note Donotuseinterpreter, Image - 10/11/2024 Knee 1 or 2 Views Left, 2 views Reason: pain COMPARISON: None. FINDINGS: No bone lesions or fractures. There is a small spur on the superior aspectof the patella. No arthritic changes. No osteochondral defects or intra-articular loosebodies. There is a tiny suprapatellar effusion IMPRESSION: A small effusion. No significant bony abnormality. If symptoms persist, anMRI can be considered. WSN: [id number] Ordering Physician: Nga Charles Dictated By: Lewis Alva MD Dictated Date/Time: 10/11/24 10:42 a Reviewed By: Lewis Alva MD Signed By: Lewis Alva MD Signed Date/Time: 10/11/24 10:42 am Transcribed By: MATTHEW Transcribed Date/Time: 10/11/24 10:37 am us Nga Charles SUPERVISOR FISHING IMG XR PROCEDURES Final Resul t * US DOPPLER EXT LOWER VENOUS LEFT (10/11/2024 9:19 AM EDT) Anatomical Region Laterality Modality Body Ultrasound 10/11/2024 9:19 AM EDT Narrative 10/12/2024 7:20 PM EDT US Doppler Ext Lower Venous Left Reason: I82.402 RULE OUT DVT LEFT LEG; Clinical Question(s): Other: COMPARISON: None IMAGING TECHNIQUE: Ultrasound of the veins from the groin through the calf was performed using grayscale, color, and spectral Doppler ultrasound assessing for complete compressibility and normal flow characteristics. FINDINGS: Common femoral vein: Patent. No thrombosis. Femoral vein: Patent. No thrombosis. Popliteal vein: Patent. No thrombosis. Gastrocnemius veins: The visualized portions are patent without evidence of thrombosis. Peroneal veins: The visualized portions are patent without evidence of thrombosis. Posterior tibial veins: The visualized portions are patent without evidence of thrombosis. Contralateral common femoral vein: Patent. No thrombosis. OTHER FINDINGS: There is a small elongated mildly complex fluid collection Upper medial calf corresponding to area of pain. It measures 3.6 x 3.4 cm by only 4 mm in thickness. It is at the border of the musculature within the subcutaneous fat. I cannot tell if it is in the superficial part of the muscle or just external to it. IMPRESSION: No evidence of deep venous thrombosis. Small mildly complex thin fluid collection area pain upper medial calf, possibly a liquefied hematoma. History correlated with history of injury in this region. WSN: [id number] Ordering Physician: Nga Charles Dictated By: Emmanuel Easley MD Dictated Date/Time: 10/12/24 7:17 pm Reviewed By: Emmanuel Easley MD Signed By: Emmanuel Easley MD Signed Date/Time: 10/12/24 7:17 pm Transcribed By: MATTHEW Transcribed Date/Time: 10/12/24 7:15 pm Procedure Note Donotuseinterpreter, Image - 10/12/2024 US Doppler Ext Lower Venous Left Reason: I82.402 RULE OUT DVT LEFT LEG; Clinical Question(s): Other: COMPARISON: None IMAGING TECHNIQUE: Ultrasound of the veins from the groin through the calfwas performed using grayscale, color, and spectral Doppler ultrasoundassessing for complete compressibility and normal flow characteristics. FINDINGS: Common femoral vein: Patent. No thrombosis. Femoral vein: Patent. No thrombosis. Popliteal vein: Patent. No thrombosis. Gastrocnemius veins: The visualized portions are patent without evidenceof thrombosis. Peroneal veins: The visualized portions are patent without evidence of thrombosis. Posterior tibial veins: The visualized portions are patent withoutevidence of thrombosis. Contralateral common femoral vein: Patent. No thrombosis. OTHER FINDINGS: There is a small elongated mildly complex fluidcollection Upper medial calf corresponding to area of pain. It measures 3.6 x 3.4 cm by only 4 mm in thickness. It is at the border of the musculature within the subcutaneous fat. Icannot tell if it is in the superficial part of the muscle or just external toit. IMPRESSION: No evidence of deep venous thrombosis. Small mildly complex thin fluid collection area pain upper medial calf,possibly a liquefied hematoma. History correlated with history of injury in this region. WSN: [id number] Ordering Physician: Nga Charles Dictated By: Emmanuel Easley MD Dictated Date/Time: 10/12/24 7:17 pm Reviewed By: Emmanuel Easley MD Signed By: Emmanuel Easley MD Signed Date/Time: 10/12/24 7:17 pm Transcribed By: MATTHEW Transcribed Date/Time: 10/12/24 7:15 pm Nga Charles SUPERVISOR FISHING IMG US PROCEDURES Final Resul t * XR Knee 4+ Views Left (10/11/2024) Anatomical Region Laterality Modality Lower Extremities, Knee Left Radiogra phic Imaging Nga Charles CNP IMG XR PROCEDURES Final Resul t * Lipid Profile With Non-HDL Cholesterol (11/25/2023 12:16 PM EDT) Cholesterol, Total 143 100 - 199 mg/dL [facility] 1 Triglycerides 86 0 - 149 mg/dL [facility] 1 HDL Cholesterol 52 >39 mg/dL [facility] 1 VLDL Cholesterol Wiley 16 5 - 40 mg/dL [facility] 1 LDL Chol Calc (NIH) 75 0 - 99 mg/dL [facility] 1 Non-HDL Cholesterol 91 0 - 129 mg/dL [facility] 1 11/25/2023 12:1 6 PM EDT 11/25/2023 Narrative [facility] 1 - 11/26/2023 6:05 AM EDT Performed at: 01 - [facility] [address] [id number] [address] Recorder: Nimisha Fuchs MD, Phone: [phone] Nga Charles CNP LAB BLOOD ORDERABLES Final Re sult [facility] 1 * Colonoscopy (11/19/2011) Colonoscopy Non bleeding internal hemrrhoids. The entire examined colon is normal. Historical Provider HEALTH MAINTENANCE Final Result from Last 3 Months or Most Recently Relevant to Health Maintenance [facility] - DQ LOS [employer] Care Teams Landscaping Manager Relationship Specialty Start Date End Date Nga Charles CNP [address] [place] [address] PCP - General Family Medicine 04/10/22
== END 2024-12-27 11:23 | disposition home or self-care (01) ==
LOC: HO.HSMS 10:28
PROVIDERS: PCP Nurse Practitioner Family; Visit Provider Psychiatry & Neurology Neurology
DX: R41.89 Other symptoms and signs involving cognitive functions and awareness (principal); M79.605 Pain in left leg
CPT/HCPCS: 99204; G2211

== ENCOUNTER 2024-12-27 10:28 | Outpatient (REF) | payer MEDICARE, SELFPAY ==
[2024-12-27 18:12] LABS: MANUAL DIFF FLAG NO
[2024-12-27 18:20] LABS: Hematocrit 38.9 % (37.0-47.0); Hemoglobin 12.3 g/dl (12.0-16.0); Imm Gran Abs Auto 0.03 X10*3/uL (0.00-0.03); Imm Gran Pct Auto 0.4 % (0.0-0.4); Lymphocytes Absolute Auto 1.9 X10*3/uL (1.2-4.9); Mean Corpuscular HGB Conc 31.6 g/dl (31.0-35.0); Mean Corpuscular Hemoglobin 28.9 pg (27.0-33.0); Mean Corpuscular Volume 91.5 fL (80.0-98.0); NRBC Abs Auto 0.000 X10*3/uL (0.0-0.012); NRBC Pct Auto 0.0 /100WBC (0.0-0.2); Platelet Count 395 X10*3/uL (160-400); Red Blood Count 4.25 X10*6/uL (4.20-5.50); White Blood Count 7.1 X10*3/uL (4.8-10.8)
[2024-12-27 18:47] LABS: Alanine Aminotransferase 10 U/L (0-31); Albumin Level 3.9 g/dL (3.5-5.0); Alkaline Phosphatase 108 U/L (39-117); Anion Gap 11 (12-20); Aspartate Amino Transferase 22 U/L (5-31); Blood Urea Nitrogen 21 mg/dL (9-16); Calcium 9.2 mg/dL (8.4-10.2); Carbon Dioxide 26 mmol/L (22-29); Chloride 107 mmol/L (96-108); Estimated Glomerular Filt Rate 44; Potassium 4.4 mmol/L (3.3-5.1); Sodium 140 mmol/L (135-145); Total Protein 7.1 g/dL (6.5-8.0)
[2024-12-27 19:09] LABS: Folate 10.6 ng/mL (> or = 4.0); Vitamin B12 < 148 pg/mL (200-900)
== END 2024-12-27 10:29 | disposition home or self-care (01) ==
LOC: HO.HKASLDS 10:28
PROVIDERS: PCP Nurse Practitioner Family; Visit Provider Psychiatry & Neurology Neurology
DX: R41.89 Other symptoms and signs involving cognitive functions and awareness (principal); M79.605 Pain in left leg; Z13.29 Encounter for screening for other suspected endocrine disorder; Z79.899 Other long term (current) drug therapy
CPT/HCPCS: 36415; 80053; 82607; 82746; 83921; 84443; 85025; 85652; 99202

== ENCOUNTER 2025-01-26 16:50 | Outpatient (REF) | payer MEDICARE, SELFPAY ==
--- OUTSIDE RECORDS SUMMARY | 2023-09-17 08:20 | XMS_ITS ---
Author Organization [facility] Address [address] [place] [address] Care Team Providers Care Activity Coordinator Name Role Phone Jailene Sebastian Primary Care Provider Bharat Wharton Jr REASON FOR VISIT abnormal UGI series Encounters Encounter Location Date Provider Diagnosis [facility] [place] [address] [place] [id number] 09/17/2023 Bharat Simmons Jr Plan Of Treatment Next Appt Details Provider Name:Bharat brooks Jr, 02/13/2025 09:20:00 AM, [address] [place] [address], [id number], Progress Notes * MEHDI MOREL CDOB: 8 (79 yo F)Acc No.[id number]:09/17/2023 EGD/MAC Patient: MEHDI HAMPTON Provider: Stephanie Simmons MD :1945 A ge:77 Y S ex:Female Date:09/17/2023 Address:[address] , [facility] Pcp:Jailene Sebastian Subjective: * Chief Complaints: * 1 . abnormal UGI series. * Medical History: Objective: * Vitals: Assessment: Plan: * Treatment: * * The named appointment provid er may or may not be the originator of this progress note, and it is not deemed complete until electronically signed by the appointment provider. Sign off status: Pending * Provider: Stephanie Simmons MD Date: 09/17/2023 Generated for Leticia de la cruz/Ajay/Cam on: 1 04:59 PM EDT
--- OUTSIDE RECORDS SUMMARY | 2024-12-05 07:10 | XMS_ITS ---
Author Organization [facility] Address [address] [place] [address] Care Team Providers Care Senior Sql Developer Name Role Phone Jailene Sebastian Primary Care Provider Bharat Wharton Jr REASON FOR VISIT screening Encounters Encounter Location Date Provider Diagnosis [facility] [place] [address] [place] [id number] 12/05/2024 Bharat Simmons Jr Plan Of Treatment Next Appt Details Provider Name:Bharat brooks Jr, 02/13/2025 09:20:00 AM, [address] [place] [address], [id number], Progress Notes * MEHDI MOREL CDOB: 8 (79 yo F)Acc No.[id number]:12/05/2024 COLON WITH MAC Patient: MEHDI HAMPTON Provider: Stephanie Simmons MD :1945 A ge:79 Y S ex:Female Date:12/05/2024 Address:[address] , [facility] Pcp:Jailene Sebastian Subjective: * Chief Complaints: * [...] for Leticia de la cruz/Ajay/Graysonitting on: 1 04:59 PM EDT
--- NOTE | ~2025-01-26 | MR_ITS ---
EXAMINATION: MR BRAIN WITHOUT CONTRAST CLINICAL INFORMATION: R 41.89. Symptoms and signs involving cognitive functions and awareness. COMPARISON: None available. TECHNIQUE: MRI of the brain was obtained using routine sequences without contrast. FINDINGS: No restricted diffusion. No acute intracranial hemorrhage, mass effect, midline shift, hydrocephalus or herniation. Barron-white matter differentiation is normal. Posterior cranial fossa contents demonstrated no signal abnormality or mass effect. Bilateral multifocal patchy and punctate deep periventricular white matter and white matter hyperintense T2 FLAIR signal involving centrum semiovale and castro radiata. 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 Flow-void signal within the main cerebral vessels is normal. Status post ocular banding, left eyeball. Sellar/suprasellar region demonstrated no signal abnormality or masses. Craniocervical junction is intact with normal position of the cerebellar tonsils. There is asymmetric volume loss of the left hippocampi without signal abnormality. There is prominent left temporal horn lateral ventricle likely secondary to the unilateral volume loss of the hippocampi. MR/MR head/brain wo con IMPRESSION: No acute brain abnormality. 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 Unilateral volume loss/atrophy, left hippocampi. Electronically signed by: Hernandez Mack MD 01/29/2025 06:46 AM KERRY
--- OUTSIDE RECORDS SUMMARY | 2025-01-26 17:00 | XMS_ITS | Encounter Summary ---
Author Organization [employer] Address [address] [place] [address] 7 [place] [address] Care Team Providers Care Roll Press Operator Name Role Phone Nga Charles CNP Primary Care Provider [phone] Encounter Details Date Type Department Care Team [...] Care Team (Late st Contact Info) Description 02/06/2025 3:00 PM EST Office [facility] MEDICAL [address] [place] [address] Nga Charles CNP 73 [place] [address] 03/09/2025 3:00 PM EST Office Visit [facility] DENTAL [address] [place] [address] Bernadette Ramos LLD 9 [place] [address] documented as of this encounter Visit Diagnoses Not on filedocumented in this encounter Care Teams Roll Press Operator Relationship Specialty Start Date End Date Nga Charles CNP [address] [place] [address] PCP - General Family Medicine 04/10/22 documented as of this encounter
--- OUTSIDE RECORDS SUMMARY | 2025-01-26 17:00 | XMS_ITS | Encounter Summary ---
Author Organization [facility] Address [address] [place] [address] [place] [address] Phone Care Team Providers Care Cottonseed Meat Presser Name Role Phone Nga Charles NP Primary Care Provider [phone] Jailene Sebastian MD Unavailable [phone] Reason for Referral * Outpatient Procedure - Closed Specialty Diagnoses / Procedures Referred By Alba cameron Referred To Contact Radiology Diagnoses Palpitations Essential hypertension Atypical chest pain Procedures US Carotid Duplex Complete (Bilateral) Nga Charles NP Phone: tel: fax: [email or web address] Referral ID Status Reason Start Date Expiration Date Visits Re quested Visits Authorized [id number] Closed 11/23/2023 11/22/2024 1 1 Encounter Details Date Type Department Care Team (Latest Contact Info) Description 11/23/2023 Transcribe Orders Virtual Department [address] [place] [address] Nga Charles NP [address] [place] [address] [email or web address] Palpitations (Primary [...] parallel represents the denominator. us Nga Charles FUSION JUNCTURE GRINDER CV US NEUROVASCULAR Final Result documented in this encounter Visit Diagnoses Diagnosis Palpitations- Primary Essential hypertension Unspecified essential hypertension Atypical chest pain Other chest pain Palpitations Essential hypertension Unspecified essential hypertension Atypical chest pain Other chest pain documented in this encounter Care Teams Cottonseed Meat Presser Relationship Specialty Start Date End Date Nga Charles NP [address] [place] [address] [email or web address] PCP - General Family Medicine 08/05/18 Jailene Sebastian MD 73 [place] [address] [email or web address] Internal Medicine 08/05/18 documented as of this encounter Additional Source Comments The information contained in this document represents components of the legal health record. It is not the complete legal health record.[facility]
--- OUTSIDE RECORDS SUMMARY | 2025-01-26 17:00 | XMS_ITS | Clinical Summary ---
Author Organization [facility] Address [address] [place] [address] Phone Care Team Providers Care Manager Psychiatry Name Role Phone Jailene Sebastian MD Primary Care Provider Allergies Active Allergy Reactions Criticality Noted Date Comments 2,4-D Dimethylamine 03/31/2022 Other reaction(s): sinusitis Capsicum Diarrhea 08/31/2017 [place] Colistimethate 03/31/2022 Other reaction(s): hives [place] Extract 06/17/2021 Dust Mite Extract 06/17/2021 Famotidine [...] Vitiligo 03/31/2022 03/30/2023 Visual impairment 03/31/2022 03/30/2023 Pain of shoulder region 03/31/2022 Prolapse of vaginal wall 03/31/2022 024 Overweight [...] Visit [facility] [address] [place] [address] Shawn Duffy MD [address] [address] Health Maintenance Due Date Last [...] Health Medicare [employer] [employer] Medicare Care Teams Manager Psychiatry Relationship Specialty Start Date End Date Jailene Sebastian MD [address] [place] [address] [place] [address] PCP - General Internal Medicine 07/28/24
--- OUTSIDE RECORDS SUMMARY | 2025-01-26 17:00 | XMS_ITS | Encounter Summary ---
Author Organization [facility] Address [address] [place] [address] Phone Care Team Providers Care Mortgage Field Inspector Name Role Phone Nga Charles NP Primary Care Provider [phone] Jailene Sebastian MD Unavailable [phone] Encounter Details Date Type Department Care Team (Latest Contact Info) Description 02/26/2022 Transcribe Orders Virtual Department [address] [place] [address] Nga Charles NP [address] [place] [address] [email or web address] Prolapse of vaginal wall (Primary Dx) Social [...] secondary to overlying bowelgas. us Nga Charles DIRECTOR OF PERSONNEL IMG US PELVIS Final Resu lt documented in this encounter Visit Diagnoses Diagnosis Prolapse of vaginal wall- Primary Unspecified prolapse of vaginal hemran Prolapse of vaginal wall Unspecified prolapse of vaginal herman documented in this encounter Care Teams Mortgage Field Inspector Relationship Specialty Start Date End Date Nga Charles NP [address] [place] [address] [email or web address] PCP - General Family Medicine 08/05/18 Jailene Sebastian MD [address] [place] [address] [email or web address] Internal Medicine 08/05/18 documented as of this encounter Additional Source Comments The information contained in this document represents components of the legal health record. It is not the complete legal health record.[facility]
--- OUTSIDE RECORDS SUMMARY | 2025-01-26 17:00 | XMS_ITS | Patient Health Record ---
Author Organization [facility] Address [address] [facility] [address] [place] [address] Care Team Providers Care Transit Mixer Operator Name Role Phone Jailene Sebastian Primary Care Provider Bharat Wharton Jr Unavailable Allergies Allergen (clinical drug ingredient) Drug/Non Drug [...] Provider Speciality Internal M edicine Referred Organization [facility] Referred Provider Bharat Simmons Jr Referred Address [address] [place] [address], ite [facility],[place],[address], Referred Provider Specialty Gastroentero logy General Notes Sarah Harvey 2024 12:00:15 PM >requested a harsh referral from Dr. Jailene Sebastian for visit with Dr Simmons on [phone] Referral Priority Routine Medications Medication SIG (Take, Route, Frequency, Duration) Notes Start Date End Date Status Betamethasone Dipropionate 0.05 % APPLY TO AFFECTED AREA EXTERNALLY ONCE DAILY FOR 14 DAYS External; Duration: 14 Active Clobetasol Propionate 0.05 % 1 application Externally Twice a day; Duration: 10 day(s) 06/17/2023 Active Omeprazole 20 MG 1 capsule 30 minutes before morning meal Orally Once a day; Duration: 30 day(s) 02/26/2022 Active amLODIPine Besylate 2.5 MG Oral; Duration: 90 Active Estradiol 0.1 MG/GM Vaginal; Duration: 112 Active Vitamin C Drops 60 MG 1 lozenge Mouth/ roat Once a day; Duration: 30 day(s) 06/17/2023 Active amLODIPine Besylate 2.5 MG Oral; Duration: 90 Active tylenol 1 tab Oral; Duration : 14 days 06/17/2023 Active Lidocaine 5 % APPLY TOPICALLY 3 TI MES DAILY External; Duration: 10 Active Tylenol Active Vitamin D-3 25 MCG (1000 UT) 1 capsule Orally Once a day; Duration: 30 day(s) 06/17/2023 Active Vitamin C 500 MG as directed Orally Active Cetirizine HCl 10 MG 1 tablet Orally Onc e a day; Duration: 30 day(s) 06/17/2023 Active Calcium Carbonate Antacid 500 MG 1 tablet Orally Once a day; Duration: 30 day(s) 06/17/2023 Active Nitroglycerin Not-Ta christina Airborne - as directed Orally Active Preparation H 0.25-88.44 % as directed Rectal 06/17/2023 Active PreserVision AREDS 2 - as directed Orally Active Loperamide HCl 2 MG 1 capsule as needed Orally Four times a day 06/17/2023 Active Ferrous Fumarate 325 (106 Fe) MG 1 tablet Orally Three times a Week; Duration: 30 day(s) 06/17/2023 Active Super B Complex/Vitamin C - as directed Orally 06/17/2023 Active Preparation H Active Cetirizine HCl 10 MG 1 tablet Orally prn Active Loperamide HCl 2 MG 1 capsule as needed Orally prn Active Super B Complex/C Ac tive Clobetasol Propionate Active Vitamin D3 50 MCG (2000 UT) 1 capsule Orally Once a day; Duration: 30 day(s) Active Ferrous Sulfate 325 (65 Fe) MG 1 tablet Orally Once a day; Duration: 30 day(s) Active Black Elderberry Act boyd [...] Problem Screening for malignant neoplasm of colon (718954456) Encounter for screening for malignant neoplasm of colon (Z12.11) Active confirmed Problem Abnormal upper gastrointestinal barium series (R93.3) Active confirmed Problem Gastroesophageal reflux disease (165798241) GERD (gastroesophageal reflux disease) (K21.9) Active confirmed Problem Chest pain (73517104) Chest pain, unspecified type (R07.9) Active confirmed Vital Signs Blood pressure diastolic 77 mm Hg 09/21/2024 Height 64 in 09/21/2024 Blood pressure systolic 111 mm Hg 09/21/2024 Weight 166 lbs 09/21/2024 BMI 28.49 kg/m2 09/21/2024 Encounters Encounter Location Date Provider Diagnosis [facility] [address] [place] [phone] 09/21/2024 Bharat Simmons Jr Encounter for screening for malignant neoplasm of colon Z12.11 ; GERD (gastroesophageal reflux disease) K21.9 and Change in bowel movement R19.4 [facility] [address] [place] [phone] 06/15/2024 Bharat Simmons Jr Assessments Encounter Date [...] Provider Name:Bharat brooks , 02/13/2025 09:20:00 AM, [address] [place] [address] , [place], [place], [id number], Insurance Providers Payer Name Payer Address Payer Phone Subscriber Number Group Number Insured Name Patient Relationship to Insured Coverage Start Date Coverage End Date [facility] [address] RamanaAMBER christine [phone] [id number] MOREL Self - patient is the insured Medical (General) History Medical History History ICD Code Chronic kidney disease Stage IIIb asthma Bronchitis/pneumonia hypertension urinary incontinence Tachycardia EGD 04/20, no H. pylori or Velasco's esop hagus. Surgical History Surgery Date(Month/Year) Uterine prolapse/total hysterectomy 01/27 Tubal ligation mole removal retinal detachment
--- OUTSIDE RECORDS SUMMARY | 2025-01-26 17:00 | XMS_ITS | Encounter Summary ---
Author Organization [facility] Address [address] [place] [address] Phone Care Team Providers Care Dispatcher Bus And Trolley Name Role Phone Nga Charles NP Primary Care Provider [phone] Jailene Sebastian MD Unavailable [phone] Encounter Details Date Type Department Care Team (Latest Contact Info) Description 05/20/2023 Transcribe Orders Virtual Department [address] [place] [address] Nga Charles NP [address] [place] [address] [email or web address] Breast screening (Primary Dx) Social History Tobacco [...] of the results and recommendations. Nga Charles NP IMG MG EXAMS Final Resu lt documented in this encounter Visit Diagnoses Diagnosis Breast screening- Primary Breast screening, unspecified Breast screening Breast screening, unspecified documented in this encounter Care Teams Dispatcher Bus And Trolley Relationship Specialty Start Date End Date Nga Charles NP [address] [place], [place] [address] [email or web address] PCP - General Family Medicine 08/05/18 Jailene Sebastian MD [address] [place] [address] [email or web address] Internal Medicine 08/05/18 documented as of this encounter Additional Source Comments The information contained in this document represents components of the legal health record. It is not the complete legal health record.[facility]
--- OUTSIDE RECORDS SUMMARY | 2025-01-26 17:00 | XMS_ITS | Clinical Summary ---
Author Organization [facility] Address [address] [place] [address] Phone Care Team Providers Care Dietetics Director Name Role Phone Nga Charles NP Primary Care Provider [phone] Jailene Sebastian MD Unavailable [phone] Allergies Active Allergy Reactions Criticality Noted Date Comments [place] Pepper Diarrhea 08/31/2017 [place] Capsicum Diarrhea 08/31/2017 [place] Colistimethate 03/31/2022 Other reaction(s): hives [place] 06/17/2021 House Dust Mite Sneezing 08/31/2017 Pet [...] Active ferrous sulfate 325 mg (65 mg [place] iron) tablet Take 325 mg by mouth [...] mitral and aortic regurgitation, normal ejection fraction Family History Medical History Relation Comments Cancer [...] 2:33 PM EST Sexual Orientation Straight 04/09/2021 2 :33 PM EST Last Filed Vital Signs Vital [...] 02/11/2022, 04/08/2021, Additional history exists COVID-19 VACCINE ( season) 2024 04/20/2023, 04/18/2021, 07/11/2020, Additional [...] 3. National Osteoporosis Foundation http://www.nof.org Nga Charles OPEN CLAIMS REPRESENTATIVE IMG BD BONE DENSITY DEXA F inal Result * (ABNORMAL) Lipid panel (05/26/2018 3:25 PM EST) HDL 56 mg/dL [facility] Comment: Interpretation <40 mg/dL: Low HDL cholesterol (major risk factor for CHD) Greater than or equal to 60 mg/dL: High HDL cholesterol ( negative risk factor for CHD) HDL - cholesterol is affected by a number of factors, e.g. smoking, excerise, hormones, sex and age. CHOLESTEROL 141 0 - 240 mg/dL [facility] TRIGLYCERIDES 97 30 - 160 mg/dL [facility] LDL 66 50 - 129 mg/dL [facility] Comment: LDL levels in terms of risk for coronary heart disease: <100 mg/dL: Optimal 100-129 mg/dL: Near or above optimal 130-159 mg/dL: Borderline high 160-189 mg/dL: High >190 mg/dL: Very High CARDIAC RISK RATIO 2.5(L) 3.3 - 4.4 [facility] Blood 05/26/2018 3:25 PM EST 05/26/2018 3:26 PM EST us Blake Scott MD LAB BLOOD ORDERABLES Marycarmen albert Result [facility] [address] [place] [address] from Last 3 Months or Most Recently Relevant to Health Maintenance Insurance [place] [employer] [place] [employer] [place] [employer] [place] [employer] [place] [employer] [place] [employer] [place] [employer] [place] [employer] [place] Care Teams Dietetics Director Relationship Specialty Start Date End Date Nga Charles NP 73 [facility] [place] [email or web address] PCP - General Family Medicine 08/05/18 Jailene Sebastian MD 73 [facility] [place] [email or web address] Internal Medicine 08/05/18 Additional Source Comments The information contained in this document represents components of the legal health record. It is not the complete legal health record.[facility]
--- OUTSIDE RECORDS SUMMARY | 2025-01-26 17:00 | XMS_ITS | Encounter Summary ---
Author Organization [facility] Address [address] [place] [address] [place] [address] Phone Care Team Providers Care Electric Scoop Operator Name Role Phone Nga Charles NP Primary Care Provider [phone] Jailene Sebastian MD Unavailable [phone] Encounter Details Date Type Department Care Team (Late st Contact Info) Description 04/04/2020 Procedure Pass [address] [address] Social History Tobacco Use Types Packs/Day Years [...] documented as of this encounter Care Teams Electric Scoop Operator Relationship Specialty Start Date End Date Nga Charles NP 73 [facility] [place] [address] [email or web address] PCP - General Family Medicine 08/05/18 Jailene Sebastian MD [address] [place] [address] [email or web address] Internal Medicine 08/05/18 documented as of this encounter Additional Source Comments The information contained in this document represents components of the legal health record. It is not the complete legal health record.[facility]
--- OUTSIDE RECORDS SUMMARY | 2025-01-26 17:00 | XMS_ITS | Encounter Summary ---
Author Organization [employer] Address [address] [place] [address] 7 [place] [address] Care Team Providers Care Hearing Stenographer Name Role Phone Nga Charles CNP Primary Care Provider [phone] Encounter Details Date Type Department Care Team [...] Description 02/06/2025 3:00 PM EST Office Visit [facility] MEDICAL [address] [place] [address] Nga Charles CNP 73 [place] [address] 03/09/2025 3:00 PM EST Office Visit [facility] DENTAL [address] [place] [address] Bernadette Ramos LLD 9 [place] [address] documented as of this encounter Visit Diagnoses Not on filedocumented in this encounter Care Teams Hearing Stenographer Relationship Specialty Start Date End Date Nga Charles CNP [address] [place] [address] PCP - General Family Medicine 04/10/22 documented as of this encounter
--- OUTSIDE RECORDS SUMMARY | 2025-01-26 17:00 | XMS_ITS | Encounter Summary ---
Author Organization [employer] Address [address] [place] [address] 7 [place] [address] Care Team Providers Care Inside Wirer Name Role Phone Nga Charles CNP Primary Care Provider [phone] Encounter Details Date Type Department Care Team [...] Description 02/06/2025 3:00 PM EST Office Visit [facility] MEDICAL [address] [place] [address] Nga Charles CNP [address] [place] [address] 03/09/2025 3:00 PM EST Office Visit [facility] DENTAL [address] [place] [address] Bernadette Ramos LLD 9 [place] [address] documented as of this encounter Visit Diagnoses Not on filedocumented in this encounter Care Teams Inside Wirer Relationship Specialty Start Date End Date Nga Charles CNP [address] [place] [address] PCP - General Family Medicine 04/10/22 documented as of this encounter
--- OUTSIDE RECORDS SUMMARY | 2025-01-26 17:00 | XMS_ITS | Encounter Summary ---
Author Organization [facility] Address [address] [place] [address] [place] [address] Phone Care Team Providers Care Neurology Physician Assistant Name Role Phone Nga Charles NP Primary Care Provider [phone] Jailene Sebastian MD Unavailable [phone] Encounter Details Date Type Department Care Team (Latest Contact Info) Description 04/10/2021 Transcribe Orders Virtual Department [address] [place] [address] Nga Charles NP [address] [place] [address] [email or web address] Chest tightness (Primary Dx) Social [...] IMPRESSION: No acute chest disease. Nga Charles COMFORT STATION SUPERVISOR IMG XR CHEST Final Resu lt documented in this encounter Visit Diagnoses Diagnosis Chest tightness- Primary Other chest pain Chest tightness Other chest pain documented in this encounter Care Teams Neurology Physician Assistant Relationship Specialty Start Date End Date Nga Charles NP [address] [place] [address] [email or web address] PCP - General Family Medicine 08/05/18 Jailene Sebatsian MD [address] [place] [address] [email or web address] Internal Medicine 08/05/18 documented as of this encounter Additional Source Comments The information contained in this document represents components of the legal health record. It is not the complete legal health record.[facility]
--- OUTSIDE RECORDS SUMMARY | 2025-01-26 17:00 | XMS_ITS | Encounter Summary ---
Author Organization [employer] Address [address] [place] [address] 7 [place] [address] Care Team Providers Care Manager Transition Name Role Phone Nga Charles CNP Primary Care Provider [phone] Encounter Details Date Type Department Care Team [...] Description 02/06/2025 3:00 PM EST Office Visit [facility] MEDICAL [address] [place] [address] Nga Charles CNP [address] [place] [address] 03/09/2025 3:00 PM EST Office Visit [facility] DENTAL [address] [place] [address] Bernadette Ramos LLD 9 [place] [address] documented as of this encounter Visit Diagnoses Not on filedocumented in this encounter Care Teams Manager Transition Relationship Specialty Start Date End Date Nga Charles CNP [address] [place] [address] PCP - General Family Medicine 04/10/22 documented as of this encounter
--- OUTSIDE RECORDS SUMMARY | 2025-01-26 17:00 | XMS_ITS | Encounter Summary ---
Author Organization [facility] Address [address] [place] [address] Phone Care Team Providers Care Tableau Architect Name Role Phone Nga Charles NP Primary Care Provider [phone] Jailene Sebastian MD Unavailable [phone] Encounter Details Date Type Department Care Team (Latest Contact Info) Description 04/09/2021 Transcribe Orders Virtual Department [address] [place] [address] Nga Charles NP [address] [place] [address] [email or web address] Post-menopausal (Primary Dx) Social History [...] National Osteoporosis Foundation [email or web address].nof.org us Nga Charles ASSOCIATE PROFESSOR OF ARCHAEOLOGY IMG BD BONE DENSITY DEXA F inal Result documented in this encounter Visit Diagnoses Diagnosis Post-menopausal- Primary Asymptomatic postmenopausal status (age-related) (natural) Post-menopausal Asymptomatic postmenopausal status (age-related) (natural) documented in this encounter Care Teams Tableau Architect Relationship Specialty Start Date End Date Nga Charles NP [address] [place] [address] [email or web address] PCP - General Family Medicine 08/05/18 Jailene Sebastian MD [address] [place] [address] [email or web address] Internal Medicine 08/05/18 documented as of this encounter Additional Source Comments The information contained in this document represents components of the legal health record. It is not the complete legal health record.[facility]
--- OUTSIDE RECORDS SUMMARY | 2025-01-26 17:00 | XMS_ITS | Encounter Summary ---
Author Organization [employer] Address [address] [place] [address] 7 [place] [address] Care Team Providers Care Assurance Auditor Name Role Phone Nga Charles CNP Primary Care Provider [phone] Encounter Details Date Type Department Care Team [...] Description 02/06/2025 3:00 PM EST Office Visit [facility] MEDICAL [address] [place] [address] Nga Charles CNP [address] [place] [address] 03/09/2025 3:00 PM EST Office Visit [facility] DENTAL [address] [place] [address] Bernadette Ramos LLD 9 [place] [address] documented as of this encounter Visit Diagnoses Not on filedocumented in this encounter Care Teams Assurance Auditor Relationship Specialty Start Date End Date Nga Charles CNP [address] [place] [address] PCP - General Family Medicine 04/10/22 documented as of this encounter
--- OUTSIDE RECORDS SUMMARY | 2025-01-26 17:00 | XMS_ITS | Encounter Summary ---
Author Organization [facility] Address [address] [place] [address] Phone Care Team Providers Care Continuous Mining Machine Coal Miner Name Role Phone Nga hCarles NP Primary Care Provider [phone] Jailene Sebastian MD Unavailable [phone] Encounter Details Date Type Department Care Team (Latest Contact Info) Description 04/09/2021 Transcribe Orders Virtual Department [address] [place] [address] Nga Charles NP [address] [place] [address] [email or web address] Encounter for screening mammogram for malignant [...] There are scattered fibroglandular densities. Nga Charles NP IMG MG EXAMS Final Resu lt documented in this encounter Visit Diagnoses Diagnosis Encounter for screening mammogram for malignant neoplasm of breast- Primary Encounter for screening mammogram for malignant neoplasm of breast documented in this encounter Care Teams Continuous Mining Machine Coal Miner Relationship Specialty Start Date End Date Nga Charles NP [address] [place] [address] [email or web address] PCP - General Family Medicine 08/05/18 Jailene Sebastian MD 73 [place] [address] [email or web address] Internal Medicine 08/05/18 documented as of this encounter Additional Source Comments The information contained in this document represents components of the legal health record. It is not the complete legal health record.[facility]
--- OUTSIDE RECORDS SUMMARY | 2025-01-26 17:00 | XMS_ITS | Encounter Summary ---
Author Organization [facility] Address [address] [place] [address] [place] [address] Phone Care Team Providers Care Pipelines Supervisor Name Role Phone Nga Charles NP Primary Care Provider [phone] Jailene Sebastian MD Unavailable [phone] Encounter Details Date Type Department Care Team (Late st Contact Info) Description 04/09/2021 Procedure [place] [address] [address] Social History Tobacco Use Types Packs/Day Years [...] on filedocumented in this encounter Care Teams Pipelines Supervisor Relationship Specialty Start Date End Date Nga Charles NP 73 [facility] [place] [place] [address] [email or web address] PCP - General Family Medicine 08/05/18 Jailene Sebastian MD [address] [place] [address] [email or web address] Internal Medicine 08/05/18 documented as of this encounter Additional Source Comments The information contained in this document represents components of the legal health record. It is not the complete legal health record.[facility]
--- OUTSIDE RECORDS SUMMARY | 2025-01-26 17:00 | XMS_ITS | Encounter Summary ---
Author Organization [facility] Address [address] [place] [address] Phone Care Team Providers Care Vice President Name Role Phone Nga Charles NP Primary Care Provider [phone] Jailene Sebastian MD Unavailable [phone] Encounter Details Date Type Department Care Team (Late st Contact Info) Description 04/04/2020 Ancillary Orders Virtual Department [address] [place] [address] Nga Charles NP [address] [place] [address] [email or web address] Breast [email or web address] Social History Tobacco Use [...] documented as of this encounter Care Teams Vice President Relationship Specialty Start Date End Date Nga Charles NP [address] [place] [address] [email or web address] PCP - General Family Medicine 08/05/18 Jailene Sebastian MD [address] [place] [address] [email or web address] Internal Medicine 08/05/18 documented as of this encounter Additional Source Comments The information contained in this document represents components of the legal health record. It is not the complete legal health record.[facility]
--- OUTSIDE RECORDS SUMMARY | 2025-01-26 17:00 | XMS_ITS | Encounter Summary ---
Author Organization [employer] Address [address] [place] [address] 7 [place] [address] Care Team Providers Care Translator Deaf Name Role Phone Nga Charles CNP Primary Care Provider [phone] Encounter Details Date Type Department Care Team [...] Description 02/06/2025 3:00 PM EST Office Visit [facility] MEDICAL [address] [place] [address] Nga Charles CNP [address] [place] [address] 03/09/2025 3:00 PM EST Office Visit [facility] DENTAL [address] [place] [address] Bernadette Ramos LLD 9 [place] [address] documented as of this encounter Visit Diagnoses Not on filedocumented in this encounter Care Teams Translator Deaf Relationship Specialty Start Date End Date Nga Charles CNP [address] [place] [address] PCP - General Family Medicine 04/10/22 documented as of this encounter
--- OUTSIDE RECORDS SUMMARY | 2025-01-26 17:01 | XMS_ITS | Clinical Summary ---
Author Organization [employer] Address [address] [place] [address] 7t [place] [address] Care Team Providers Care Apartment Leasing Agent Name Role Phone Elza Charlesndnilson HUTCHISON Primary Care Provider Allergies Active Allergy Reactions Criticality Noted Date Comments 2,4-D Dimethylamine Low 03/31/2022 Other reaction(s): sinusitis Capsicum Diarrhea Low 08/31/2017 [place] Colistimethate Hives Low 03/31/2022 Other reaction(s): hives [...] (Tums) 500 MG chewable tablet 1 tablet. Active SUPER B COMPLEX/C PO 60mg C, 25mg [...] % ointment Apply topically 3 times daily. 3 Active albuterol 108 (90 Base) MCG/ACT inhaler INHALE 2 PUFFS INTO THE LUNGS 4 TIMES A DAY NEEDED FOR WHEZING/SHORTNE SS OF BREATH 3 Active estradiol (Estrace) 0.1 MG/GM vaginal cream Insert 2 g into the vagina in the morning. Active omeprazole (PriLOSEC) [address] capsuleIndicatio ns:Gastroesophag eal reflux disease without esophagitis Take 1 capsule (20 mg) by mouth if needed each day (acid reflux, chest tightness). Do not crush or chew. 90 capsule 4 Active Additional Information Patient not taking.Reported on 12/27/2024 amLODIPine (Norvasc) 2.5 MG tabletIndication s:Essential hypertension Take 1 tablet (2.5 mg) by mouth Once per day. 90 tablet 3 5 Active Multiple Vitamins-Mineral s (PRESERVISION AREDS 2 PO) Take by mouth. Act boyd amoxicillin (Amoxil) 500 MG capsule TAKE 4 CAPSULES BY MOUTH 1 HOUR PRIOR TO DENTAL PROCEDURE 12 capsule 3 5 Active Additional Information Patient not taking.Reported on 12/27/2024 Active Problems Problem Noted Date Diagnosed Date Arthritis 03/31/2023 04/03/2023 Lichen sclerosus 03/31/2023 04/03/2023 Chronic kidney disease, stage 3a ([facility]) 03/31 Overweight 03/31/2022 Decreased hearing 03/31/2022 Vitiligo [...] shoulder 03/31/202204/03 Stage 3 chronic kidney disease ([facility]) 04/03/2021 04/03/2023 Encounters Date Type Department Care Team Description 01/10/2025 Results Follow-Up [facility] MEDICAL [address] [place] [address] Libby Malik MD Tickborne Disease Antibody Profile, Serum 01/08/2025 Orders Only [facility] Information Management [address] [place] [address] Nga Charles, FOSTER 01/02/2025 Results Follow-Up [facility] MEDICAL [address] [place] [address] Libby Malik MD US Back (AKA Soft Tissue) 01/01/2025 Orders Only [facility] MEDICAL [address] [place] [address] Libby Malik MD 12/27/2024 2:30 PM EDT Office Visit [address] [address] Libby Malik MD Leg pain, left (Primary Dx); Lump of skin of back; Effusion, left knee; Positive anaplasmosis titer 12/08/[address] [address] Nga Charles SERVICE MANAGER verify infection for city 12/06/[address] [address] Yuliana Burroughs LPN 11/30/2024 Results Follow-Up [address] [address] Libby Malik MD Comprehensive Metabolic Panel [[id number]], CBC auto differential, TSH with Reflex to Free T4 [[id number]], Additional followed-up results: 2 11/29/2024 11:30 AM EDT Office Visit [address] [address] Libby Malik MD Chills (Primary Dx); Other fatigue; Left shoulder pain, unspecified chronicity; Lump of skin of back; Leg pain, left from Last 3 Months Immunizations Immunization Administration Dates Next Due INFLUENZA INJECTABLE QUADRIV ALANT CCIIV4 MDCK Multi-dose vial 01/23/2019 Influenza High-dose Quadriva lent Preservative Free 04/20/2023 Influenza, High Dose Seasona l, Preservative Free 02/11/2022,04/16/2018 Influenza, IIV3, injectable 02/18/2022,,01/15/2020 Influenza, Split (incl. benny fied surface antigen) 01/13/1995 Influenza, Unspecified 04/08/2021,2019,03/13/2013,02/17 MMR 07/20/2018 Moderna Covid-19 Vaccine 12+ 04/20/2023 PPD Test 07/20/2003 Pneumococcal Conjugate PCV 20 04/06/2023 Pneumococcal Polysaccharide PPSV23 03/13/2013 TD (adult), 2 Lf tetanus tox oid, preservative free, adsorbed 04/19/2000,02/04/1989 Td (adult), 5 Lf tetanus tox oid, preservative free, adsorbed 05/22/2022 Tdap 08/21/2011 Zoster, Recombinant 12/15/2024 Zoster, live 03/29/2014 Family History Medical History [...] Pests such as bugs, ants, or mice;Lead [place] or Pipes;Mold 10/10/2024 Food Insecurity Answer Date [...] 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 on file Not on file Last Filed Vital Signs Vital Sign Reading Time Taken Comments Blood Pressure 103/68 12/27/2024 2:19 PM EDT Pulse 78 12/27/2024 2:19 PM EDT Temperature 35.9 C (96.7 F) 12/27/2024 2:19 PM EDT Respiratory Rate 18 02/15/2024 2:42 PM EST Oxygen Saturation 91% 12/27/2024 2:19 PM EDT Inhaled Oxygen Concentration - - Weight 75.3 kg (166 lb) 12/27/2024 2:19 PM EDT Height 162.6 cm (5' 4 ) 12/27/2024 2:19 PM EDT Body Mass Index 28.49 12/27/2024 2:19 PM EDT Plan of Treatment Upcoming Encounters Date Type Department Care Team (Late st Contact Info) Description 02/06/2025 3:00 PM EST Office Visit [facility] MEDICAL [address] [place] [address] Nga Charles, SERVICE MANAGER [address] [place] [address] 03/09/2025 3:00 PM EST Office Visit [facility] DENTAL [address] [place] [address] Bernadette Ramos LLD 9 [place] [address] Health Maintenance Due Date Last Done Comments [...] 02/09/2025 12/15/2024, 03/2014 Dental X-Ray: [facility] 08/03/2025 08/03/19 25, 03/10/2023, 07/03/2021, Additional history exists Alcohol/Substance Use [...] Procedure Name Priority Date/Time Associated Diagnosis Comments TICKBORNE DISEASE ANTIBODY PROFILE, SERUM Routine 01/04/2025 11:40 AM EDT Lump of skin of back Positive anaplasmosis titer US BACK (AKA SOFT TISSUE) Routine 01/01/2025 12:31 PM EDT US SOFT TISSUE Routine 01/01/2025 Lump of skin of back CBC WITH AUTO DIFFERENTIAL Routine 12/27/2024 1:42 PM EDT AMB REFERRAL TO NEUROLOGY Routine 12/27/2024 Family history of parkinsonism Twitching XR SHOULDER 2+ VIEWS LEFT Routine 12/19/2024 Left shoulder pain, unspecified chronicity TICKBORNE DISEASE ANTIBODY PROFILE, SERUM Routine 11/29/2024 12:42 PM EDT Other fatigue TSH W/REFLEX TO FT4 Routine 11/29/2024 1 2:42 PM EDT Other fatigue COMPREHENSIVE METABOLIC PANEL Routine 11/29/2024 12:42 PM EDT Other fatigue CBC WITH AUTO DIFFERENTIAL Routine 11/29/2024 12:42 PM EDT Other fatigue Full PROPHYLAXIS - ADULT Routine 08/02/2024 3:00 [...] Recently Relevant to Health Maintenance Results * (ABNORMAL) Tickborne Disease Antibody Profile, Serum (01/04/2025 11:40 AM EDT) Only the most recent of2 resultswithin the time period is included. [facility] Lyme Antibody Screen Negative Negative [facility] Comment: Lyme antibodies not detected. Reflex testing is not indicated. No laboratory evidence of infection with B. burgdorferi (Lyme disease). Negative results may occur in patients recently infected (less than or equal to 14 days) with B. burgdorferi. If recent infection is suspected, repeat testing on a new sample collected in 7 to 14 days is recommended. Babesia microti Antibody IgG <1:10 Neg:<1:10 [facility] E.chaffeensis Antibody IgG Negative Neg:<1:64 [facility] A. phagocytophilum Antibody (IgG) 1:64(H) Neg:<1:64 [facility] Result Comments: [facility] Comment: Antibody titers may be negative in the first 7-10 days of illness. A four-fold rise in IgG antibody titers for Babesia microti, Anaplasma phagocytophilum, and/or Ehrlichia chaffeensis in paired samples (acute and convalescent) supports the diagnosis of babesiosis, anaplasmosis, and/or ehrlichiosis, respectively. Blood Venous blood specimen / Unknown 01/04/2025 11:40 AM EDT 01/04/2025 Narrative [facility] 2 - 01/10/2025 6:05 PM EDT Test(s) [id number]-Hfwoomo microti IgG was developed and its performance characteristics determined by [employer]. It has not been cleared or approved by the Food and Drug Administration. Resulting Agency Comment Performed at: - [address] [id number] Stock Replenisher: Nimisha Fuchs MD, Phone: [phone] Performed at: 02 - [address] [id number] Stock Replenisher: Geoffrey Jain MD, Phone: [phone] Libby Malik MD LAB BLOOD ORDERABLES Final Resul t [facility] [address] [address] [address] * US Back (AKA Soft Tissue) (01/01/2025 12:31 PM EDT) Anatomical Region Laterality Modality Abdomen Ultrasound 01/01/2025 12:3 1 PM EDT Narrative 01/01/2025 2:33 PM EDT US Soft Tissue Back REASON: Lump Of Skin Of Back R22.2; COMPARISON: None. FINDINGS: High-resolution, linear array imaging of the superficial soft tissues of the left upper back/shoulder was performed in the area of the patient's palpable finding. 6.2 x 2.3 x 8.1 cm heterogeneously isoechoic area is seen in the subcutaneous fat of the left upper back/shoulder, without any associated internal vascularity. No significant associated skin thickening or fascial irregularity. No fluid collection. IMPRESSION: Soft tissue mass most consistent with lipoma measuring up to 8.1 cm in the left shoulder/upper back region corresponding to the site of known patient's palpable finding. No suspicious features. I have personally reviewed the images and I agree with this report. WSN: [id number] Ordering Physician: Libby Malik MD Dictated By: Ainsley Almaraz MD Dictated Date/Time: 01/01/25 2:30 pm Reviewed By: Edgar Deng MD Signed By: Edgar Deng MD Signed Date/Time: 01/01/25 2:35 pm Transcribed By: MATTHEW Transcribed Date/Time: 01/01/25 2:28 pm Procedure Note Donotuseinterpreter, Image - 01/01/2025 US Soft Tissue Back REASON: Lump Of Skin Of Back R22.2; COMPARISON: None. FINDINGS: High-resolution, linear array imaging of the superficial soft tissues ofthe left upper back/shoulder was performed in the area of the patient'spalpable finding. 6.2 x 2.3 x 8.1 cm heterogeneously isoechoic area is seen in thesubcutaneous fat of the left upper back/shoulder, without any associated internal vascularity. No significant associated skin thickening or fascialirregularity. No fluid collection. IMPRESSION: Soft tissue mass most consistent with lipoma measuring up to 8.1 cm in theleft shoulder/upper back region corresponding to the site of known patient'spalpable finding. No suspicious features. I have personally reviewed the images and I agree with this report. WSN: [id number] Ordering Physician: Libby Malik MD Dictated By: Ainsley Almaraz MD Dictated Date/Time: 01/01/25 2:30 pm Reviewed By: Edgar Deng MD Signed By: Edgar Deng MD Signed Date/Time: 01/01/25 2:35 pm Transcribed By: MATTHEW Transcribed Date/Time: 01/01/25 2:28 pm us Libby Malik MD IMG US PROCEDURES Final Result * US SOFT TISSUE (01/01/2025) Anatomical Region Laterality Modality Abdomen Ultrasound Libby Malik MD IMG US PROCEDURES Final Result * CBC auto differential (12/27/2024 1:42 PM EDT) Only the most recent of2 resultswithin the time period is included. Blood Venous blood specimen / Unknown Nga Charles [facility] LAB BLOOD ORDERABLES Final Re sult * Referral to Neurology (12/27/2024) Nga Charles [facility] OUTPATIENT REFERRAL ORDERABLE S Final Result * XR Shoulder 2+ Views Left (12/19/2024) Anatomical Region Laterality Modality Upper Extremities, Shoulder Left Radi ographic Imaging Libby Malik MD IMG XR PROCEDURES Final Result * TSH with Reflex to Free T4 [[id number]] (11/29/2024 12:42 PM EDT) Pathologist [facility] TSH 1.660 0.450 - 4.500 uIU/mL [facility] 1 Blood Venous blood specimen / Unknown 11/29/2024 12:42 PM EDT 11/29/2024 Narrative Resulting Agency Comment Performed at: [facility] [address] [id number] Stock Replenisher: Nimisha Fuchs MD, Phone: [phone] Libby Malki MD LAB BLOOD ORDERABLES Final Resul t [facility] 1 * (ABNORMAL) Comprehensive Metabolic Panel [[id number]] (11/29/2024 12:42 PM EDT) Glucose 89 70 [...] 11/29/2024 Narrative Resulting Agency Comment Performed at: - [facility] [id number] Stock Replenisher: Nimisha Fuchs MD, Phone: [phone] Libby Malik MD LAB BLOOD ORDERABLES Final Resul t Performing Organization Address City/[facility]/ZIP Co de Phone Number [facility] 1 * Lipid Profile With Non-HDL Cholesterol (11/25/2023 [...] AM EDT Performed at: 01 - [facility] [address] [id number] Stock Replenisher: Nimisha Fuchs MD, Phone: [phone] Nga Charles CNP LAB BLOOD ORDERABLES Final Re sult Performing Organization Address [facility] Co de Phone Number [facility] 1 * Colonoscopy (11/19/2011) Colonoscopy Non bleeding internal hemrrhoids. The entire examined colon is normal. Historical Provider HEALTH MAINTENANCE Final Result from Last 3 Months or Most Recently Relevant to Health Maintenance [facility] [place] [employer] DENTAL - DQ [place] MEDICARE PLUS HMO Care Teams Apartment Leasing Agent Relationship Specialty Start Date End Date Nga Charles CNP [address] [place] [address] PCP - General Family Medicine 04/10/22
--- OUTSIDE RECORDS SUMMARY | 2025-01-26 17:01 | XMS_ITS | Encounter Summary ---
Author Organization [employer] Address [address] 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 Not on file Not on file documented as of this encounter Plan of Treatment Upcoming Encounters Date Type Department Care Team (Late st Contact Info) Description 02/06/2025 3:00 PM EST Office Visit [facility] MEDICAL [address] [place] [address] Nga Charles CNP [address] [place] [address] 03/09/2025 3:00 PM EST Office Visit [facility] DENTAL [address] [place] [address] Bernadette Ramos LLD 9 [place] [address] documented as of this encounter Procedures Procedure Name Priority Date/Time Associated Diagnosis Comments CBC WITH AUTO DIFFERENTIAL Routine 12/27/2024 1:42 PM EDT documented in this encounter Results * CBC auto differential (12/27/2024 1:42 PM EDT) Blood Venous blood specimen / Unknown Nga Charles CNP LAB BLOOD ORDERABLES Final Re sult documented in this encounter Visit Diagnoses Not on filedocumented in this encounter Additional Health Concerns Assessment Noted Time PHQ-9 Depression Total Score: 4 10/11/19 25 12:31 PM EDT documented as of this encounter Care Teams Sports Journalist Relationship Specialty Start Date End Date Nga Charles CNP [address] [place] [address] PCP - General Family Medicine 04/10/22 documented as of this encounter
--- OUTSIDE RECORDS SUMMARY | 2025-01-26 17:01 | XMS_ITS | Encounter Summary ---
Author Organization [facility] Address [address] [place] [address] [place] [address] Phone Care Team Providers Care Drafter Civil (Cad) Name Role Phone Nga Charles NP Primary Care Provider [phone] Jailene Sebastian MD Unavailable [phone] Encounter Details Date Type Department Care Team (Late st Contact Info) Description 05/20/2023 Procedure Pass [facility], [address] [address] Social History Tobacco Use Types Packs/Day Years [...] on filedocumented in this encounter Care Teams Drafter Civil (Cad) Relationship Specialty Start Date End Date Nga Charles NP [address] [place] [address] [email or web address] PCP - General Family Medicine 08/05/18 Jailene Sebastian MD [address] [place] [address] [email or web address] Internal Medicine 08/05/18 documented as of this encounter Additional Source Comments The information contained in this document represents components of the legal health record. It is not the complete legal health record.[facility]
--- OUTSIDE RECORDS SUMMARY | 2025-01-26 17:01 | XMS_ITS | Encounter Summary ---
Author Organization [employer] Address [address] [facility] 7t [place] [address] Care Team Providers Care Boiling Tub Operator Name Role Phone AraceliLacinilson HUTCHISON Primary Care Provider [phone] Encounter Details Date Type Department Care Team (Late st Contact Info) Description 01/10/2025 Results Follow-Up [facility] MEDICAL [address] [place] [address] Libby Malik MD [address] [place] [address] Tickborne Disease Antibody Profile, Serum Social History Tobacco Use Types Packs/Day Years [...] Pests such as bugs, ants, or mice;Lead [place] or Pipes;Mold 10/10/2024 Food Insecurity Answer Date [...] 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 Not on file Not on file documented as of this encounter Plan of Treatment Upcoming Encounters Date Type Department Care Team (Late st Contact Info) Description 02/06/2025 3:00 PM EST Office Visit [facility] MEDICAL [address] [place] [address] Nga Charles, FOSTER [address] [place] [address] 03/09/2025 3:00 PM EST Office Visit [facility] DENTAL [address] [place] [address] Bernadette Ramos LLD 9 [place] [address] documented as of this encounter Visit Diagnoses Not on filedocumented in this encounter Additional Health Concerns Assessment Noted Time PHQ-9 Depression Total Score: 4 10/11/19 25 12:31 PM EDT documented as of this encounter Care Teams Boiling Tub Operator Relationship Specialty Start Date End Date Nga Charles CNP [address] [place] [address] PCP - General Family Medicine 04/10/22 documented as of this encounter
--- OUTSIDE RECORDS SUMMARY | 2025-01-26 17:01 | XMS_ITS | Encounter Summary ---
Author Organization [facility] Address [address] [place] [address] [place] [address] Phone Care Team Providers Care Hypoid Gear Tester Name Role Phone Jailene Sebastian MD Primary Care Provider [phone] Nga Charles NP Primary Care Provider [phone] Jailene Sebastian MD Unavailable [phone] Encounter Details Date Type Department Care Team (Late st Contact Info) Description 09/08/2017 Procedure Pass [facility] Endoscopy Admitting Dept Virtual Department [address] [place] [address] Social History Tobacco Use Types Packs/Day Years [...] documented as of this encounter Care Teams Hypoid Gear Tester Relationship Specialty Start Date End Date Jailene Sebastian MD [address] [facility] [place] [address] [email or web address] PCP - General Internal Medicine 09/08/17 08/04/18 Nga Charles NP [address] [place] [address] [email or web address] PCP - General Family Medicine 08/05/18 Jailene Sebastian MD [address] [place] [address] [email or web address] Internal Medicine 08/05/18 documented as of this encounter Additional Source Comments The information contained in this document represents components of the legal health record. It is not the complete legal health record.[facility]
--- OUTSIDE RECORDS SUMMARY | 2025-01-26 17:01 | XMS_ITS | Encounter Summary ---
Author Organization [employer] Address [address] [facility] [address] [place] [address] Care Team Providers Care Academic Records Specialist Name Role Phone Nga Charles CNP Primary Care Provider [phone] Encounter Details Date Type Department Care Team (Late st Contact Info) Description 04/11/2023 Orders Only [facility] MEDICAL [address] [place], [place] [id number] Provider, MD Karen Social History Tobacco Use [...] 02/06/2025 3:00 PM EST Office Visit [facility] MEDICAL [address] [place] [address] Nga Charles, FOSTER [address] [place] [address] 03/09/2025 3:00 PM EST Office Visit [facility] DENTAL [address] [place] [address] Bernadette Ramos LLD [address] [place] [address] documented as of this encounter Procedures Procedure Name Priority Date/Time Associated Diagnosis Comments CBC AND DIFFERENTIAL - WAM A ND NON-WAM Routine 02/02/2023 BASIC METABOLIC PANEL Routine 02/02/2023 documented in this encounter Results * Basic Metabolic Panel (02/02/2023) Blood Venous blood specimen / Unknown Historical Provider LAB BLOOD ORDERABLES Marycarmen l Result * CBC and differential (02/02/2023) Blood Venous blood specimen / Unknown Historical Provider LAB BLOOD ORDERABLES Marycarmen l Result documented in this encounter Visit Diagnoses Not on filedocumented in this encounter Care Teams Academic Records Specialist Relationship Specialty Start Date End Date Nga Charles CNP [address] [place] [address] PCP - General Family Medicine 04/10/22 documented as of this encounter
--- OUTSIDE RECORDS SUMMARY | 2025-01-26 17:01 | XMS_ITS | Encounter Summary ---
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 on file Not on file documented as of this encounter Plan of Treatment Upcoming Encounters Date Type Department Care Team (Late st Contact Info) Description 02/06/2025 3:00 PM EST Office Visit [facility] MEDICAL [address] [place] [address] Nga Charles CNP [address] [place] [address] 03/09/2025 3:00 PM EST Office Visit [facility] DENTAL [address] [place] [address] Bernadette Ramos LLD [address] [place] [address] documented as of this encounter Procedures Procedure [...] on filedocumented in this encounter Care Teams Crop Pest Control Specialist Relationship Specialty Start Date End Date Nga Charles CNP [address] [place] [address] PCP - General Family Medicine 04/10/22 documented as of this encounter
--- OUTSIDE RECORDS SUMMARY | 2025-01-26 17:01 | XMS_ITS | Encounter Summary ---
Author Organization [facility] Address [address] [place] [address] Phone Care Team Providers Care Dude Ranch Manager Name Role Phone Jailene Sebastian MD Primary Care Provider [phone] Nga Charles NP Primary Care Provider [phone] Jailene Sebastian MD Unavailable [phone] Encounter Details Date Type Department Care Team (Late st Contact Info) Description 07/22/2018 Ancillary Orders Virtual Department [address] [place] [address] Nga Charles NP [address] [place] [address] [email or web address] Breast screening Social History [...] Images interpreted in conjunction with R-2 Image Pallet Rectifier computer-aided detection (CAD). FINDINGS: BREAST DENSITY: There are scattered fibroglandular densities. There are no suspicious masses, suspicious areas of architectural distortion or suspicious clusters of microcalcifications. Stable scattered bilateral benign microcalcifications. Procedure Note Kirstin Joiner MD - 07/26/2018 BI MAMMOGRAM SCREENING WITH TOMOSYNTHESIS WITH CAD (BILATERAL) HISTORY: Screening. COMPARISON: Prior studies dating back to 09/28/2007, most xejvrnyr87/04/2016. TECHNIQUE: Digital breast tomosynthesis was performed in [...] fibroglandular densities. POS - [id number] Nga Charles CRADLE SLIDE MAKER IMG MG EXAMS Final Resu lt documented in this encounter Visit Diagnoses Diagnosis Breast screening Breast screening, unspecified Breast screening Breast screening, unspecified documented in this encounter Additional Health Concerns Infection Onset Date Last Indicated Resolved Time CoV-Risk Comment:Per Ambulatory Triage Form 03/17/2021 03/19/202103/29 1:22 AM EST documented as of this encounter Care Teams Dude Ranch Manager Relationship Specialty Start Date End Date Jailene Sebastian MD [address] [place] [address] [email or web address] PCP - General Internal Medicine 09/08/17 08/04/18 Nga Charles NP [address] [place] [address] [email or web address] PCP - General Family Medicine 08/05/18 Jailene Sebastian MD [address] [place] [address] [email or web address] Internal Medicine 08/05/18 documented as of this encounter Additional Source Comments The information contained in this document represents components of the legal health record. It is not the complete legal health record.[facility]
--- OUTSIDE RECORDS SUMMARY | 2025-01-26 17:01 | XMS_ITS | Encounter Summary ---
Author Organization [facility] Address [address] [place] [address] [place] [address] Phone Care Team Providers Care C Application Developer Name Role Phone Nga Charles NP Primary Care Provider [phone] Jailene Sebastian MD Unavailable [phone] Encounter Details Date Type Department Care Team (Late st Contact Info) Description 02/22/2019 Ancillary Orders [facility], -[address] [address] Nga Charles NP [address] [place] [address] [email or web address] Left foot pain; Left shoulder pain, [...] cervical spine facetarthropathy. POS - [id number] Nga Sachin Charles DATASTAGE ARCHITECT IMG XR UPPER EXTREMITY Fin al Result * XR FOOT 3 OR MORE [...] as above. POS - [id number] Nga Charles NP IMG XR LOWER EXTREMITY Fin al Result documented in this encounter Visit Diagnoses [...] documented as of this encounter Care Teams C Application Developer Relationship Specialty Start Date End Date Nga Charles NP [address] [place] [address] [email or web address] PCP - General Family Medicine 08/05/18 Jailene Sebastian MD [address] [place] [address] [email or web address] Internal Medicine 08/05/18 documented as of this encounter Additional Source Comments The information contained in this document represents components of the legal health record. It is not the complete legal health record.[facility]
== END 2025-01-26 16:51 | disposition home or self-care (01) ==
LOC: HO.MRI 16:50
PROVIDERS: PCP Nurse Practitioner Family; Visit Provider Psychiatry & Neurology Neurology
DX: R41.89 Other symptoms and signs involving cognitive functions and awareness (principal)
CPT/HCPCS: 70551

== ENCOUNTER → 2025-01-26 16:50 | Outpatient (BNV) | payer MEDICARE, SELFPAY | PROVIDERS: PCP Nurse Practitioner Family; Visit Provider Radiology Diagnostic Radiology | DX: R90.82 White matter disease, unspecified (principal) | CPT/HCPCS: 70551 ==